=== PATIENT | female | born 1945 | race Caucasian/White ===

== ENCOUNTER → 2016-07-25 | Outpatient (CLI) | payer MEDICARE, BC ==
[~2016-07-25] MED LIST: AMBIEN 10MG10 MG PO; APIDRA SOLOS100 U/ML SC; APIDRAVL SC; ASPIRIN 32325 MG/TAB PO; ASPIRIN E.C. 8181 MG PO; CALCIUM + D 6001 TA1 PO; HYZAAR 25 MG-101 TAB PO; IMDUR 30MG30 MG/TAB PO; LASIX 80MG TABL80 MG PO; LEVEMIR FLEX100 U/ML SQ; LEVEMIR FLEXPEN SC; LOPRESSOR100 MG PO; MASON NATURAL1200 MG PO; MICRONASE5 MG PO; NITROSTAT0.3 MG; NORVASC 5MG5 MG/TAB PO; OMEGA-3 FISH1200 MG PO; PLAVIX 75MG TAB75 MG PO; PRAVACHOL 40MG40 MG PO
== END ==
LOC: MC.RAD 08:35
DX: Z12.31 Encounter for screening mammogram for malignant neoplasm of breast (principal)

== ENCOUNTER → 2017-08-20 | Outpatient (CLI) | payer MEDICARE, BC | LOC: MC.RAD 09:32 | DX: Z12.31 Encounter for screening mammogram for malignant neoplasm of breast (principal) ==

== ENCOUNTER → 2017-12-31 | Outpatient (CLI) | payer MEDICARE, BC ==
[2005-08-27 12:18] VITALS: BP 148/78
[~2017-12-31] VITALS: Ht 162.6 cm; Wt 126.6 kg
[~2017-12-31] MED LIST changes: +COZAAR100 MG PO; +IRON TABLETS325 MG PO; +LEVOXYL0.05 MG PO; +MASON NATURAL2000 IU PO; -NITROSTAT0.3 MG; +NITROSTAT0.3 MG SL; +PRAVACHOL80 MG PO; +TYLENOL 500MG500 MG PO; +VITAMIN B125000 MCG PO
[2017-12-31 07:41] VITALS: BP 182/95; PULSE 66
[2017-12-31 09:00] VITALS: BP 198/93; PULSE 58
[2017-12-31 09:15] VITALS: BP 180/83; PULSE 58
== END ==
LOC: COL.RAD 06:45
DX: M48.061 Spinal stenosis, lumbar region without neurogenic claudication (principal)
CPT/HCPCS: J3301

== ENCOUNTER → 2018-02-03 | Outpatient (CLI) | payer MEDICARE, BC ==
[2005-08-27 12:18] VITALS: BP 148/78
[~2018-02-03] VITALS: Ht 162.6 cm; Wt 123.0 kg
[2018-02-03 09:21] VITALS: BP 186/80; PULSE 62
[2018-02-03 10:20] VITALS: BP 193/83; PULSE 62
[2018-02-03 10:31] VITALS: BP 168/79; PULSE 92
== END ==
LOC: COL.RAD 01-16 13:00
DX: M48.061 Spinal stenosis, lumbar region without neurogenic claudication (principal)
CPT/HCPCS: J3301

== ENCOUNTER → 2018-09-26 | Outpatient (CLI) | payer MEDICARE, BC | LOC: MC.RAD 08:41 | DX: Z12.31 Encounter for screening mammogram for malignant neoplasm of breast (principal) ==

== ENCOUNTER 2019-12-04 14:09 | Inpatient (IN) | payer MEDICARE, BC ==
[~2019-12-04] VITALS: Ht 165.1 cm; Wt 127.4 kg
[2019-12-04] MEDS ORDERED: SYNTHROID0.075 MG/T PO (14:43)
[2019-12-04] MEDS ORDERED: NOVOLOG 100U100 U/M1 SQ (14:45)
[2019-12-04] MEDS ORDERED: BASAGLAR K100 UNIT/1 SQ (14:46)
[2019-12-04 15:21] LABS: BASO % 0.6 % (0.0-2.0); EOS # 0.1 (0.0-0.7); EOS % 0.7 % (0-4.0); GRAN # 5.6 (1.4-6.5); GRAN % 79.8 % (42.2-75.2); HEMOGLOBIN 10.7 g/dl (12.5-16.0); LYMPH # 0.7 (1.2-3.4); LYMPH % 10.2 % (20.0-51.0); MEAN CELL VOLUME 93 fl (80.0-100.0); MEAN CORPUSCULAR HEMOGLOBIN 31 pg (27.0-31.0); MEAN CORPUSCULAR HGB CONC 33 g/dl (33.0-37.0); MEAN PLATELET VOLUME 12.3 fl (7.4-10.4); MONO # 0.6 (0.1-0.6); MONO % 7.9 % (1.7-9.3); PLATELET COUNT 140 K/mm3 (130-400); REDCELL DISTRIBUTION WIDTH-CV 13.1 % (11.5-14.5)
[2019-12-04 15:40] LABS: HEMATOCRIT 32.7 % (37.0-47.0)
[2019-12-04 15:42] LABS: ALBUMIN 3.5 gm/dL (3.5-5.0); BILIRUBIN,TOTAL 0.9 mg/dL (0.0-1.0); CALCIUM 9.1 mg/dL (8.4-10.2); CREATININE, serum 2.77 (0.52-1.25); POTASSIUM 3.3 mmol/L (3.4-5.0); TOTAL PROTEIN 6.3 gm/dL (6.4-8.2)
[2019-12-04 15:46] LABS: COLLECTION METHOD IN
[2019-12-04 15:55] LABS: MUCOUS Present /lpf; PH 6 (5-8); SQUAMOUS EPITHELIAL 0-2 /hpf; URINE APPEARANCE Hazy; URINE BACTERIA Rare /hpf; URINE BILIRUBIN Negative (NEGATIVE); URINE BLOOD 1+ (NEGATIVE); URINE COLOR Yellow; URINE GLUCOSE 3+ (NEGATIVE); URINE KETONE Negative (NEGATIVE); URINE LEUKOCYTE ESTERASE Negative (NEGATIVE); URINE NITRATE Negative (NEGATIVE); URINE PROTEIN(semi-quant) 3+ (NEGATIVE); URINE RBC 0-2 /hpf; URINE UROBILINOGEN Negative (NEGATIVE)
[2019-12-04 15:55] LABS: INR 1.1 (0.8-3.0); PROTHROMBIN TIME 12.3 SECONDS (9.7-12.8)
[2019-12-04 15:56] LABS: TROPONIN-I 0.068 ng/mL (0.000-0.035)
--- NOTE | 2019-12-04 18:12 | NUR ---
pt pleasant, aox4 , admission completed, many alleriges to antibiotics. lab unable to draw 3hr troponin, pt denies pain or discomfort, reports unfortunate past history of nephew with this hospital. this is resulting in pt desiring to be transferred to [place] if any highly invasive procedures become necessary. assessment performed. water brought in, dinner tray ordered for pt.
[2019-12-04 18:22] VITALS: BP 198/76; PULSE 84; TEMP 98.4
[2019-12-04 18:29] VITALS: BP 175/88
--- NOTE | 2019-12-04 18:43 | NUR ---
CALLED DR DIAZ ABOUT INC BP, INSTRUCTED TO GIVE BOTH DOSES OF BP MEDS NOW NOT AT 2100
[2019-12-04 20:02] VITALS: BP 150/75; PULSE 73; TEMP 98.1
[2019-12-04 20:17] LABS: MAGNESIUM 1.9 mg/dL (1.6-2.3)
[2019-12-04 20:47] LABS: TROPONIN-I 0.125 ng/mL (0.000-0.035)
[2019-12-05 00:14] VITALS: BP 146/72; PULSE 59; TEMP 98
--- NOTE | 2019-12-05 00:49 | NUR ---
Pt assessment completed and charted, alert and oriented, O2 on NC 2 lit. Critical troponin level, informed the hospitalist. Meds provided as per MAY, tolerated well. Blood glucose was on higher range, insulin provided as per sliding scale. Settled on bed, call light is on reach, bed alarm is on. No further needs at this time.
[2019-12-05 03:56] VITALS: BP 134/55; PULSE 54; TEMP 97.5
--- NOTE | 2019-12-05 06:18 | NUR ---
Pt had an uneventful night, slept on and off through out the night. Morning meds provided as per MAY. No further needs at this time.
[2019-12-05 07:21] LABS: BASO % 0.3 % (0.0-2.0); EOS # 0.3 (0.0-0.7); EOS % 3.9 % (0-4.0); GRAN # 4.2 (1.4-6.5); GRAN % 66.2 % (42.2-75.2); LYMPH # 1.2 (1.2-3.4); MEAN CELL VOLUME 96 fl (80.0-100.0); MEAN CORPUSCULAR HGB CONC 33 g/dl (33.0-37.0); MEAN PLATELET VOLUME 12.3 fl (7.4-10.4); MONO # 0.6 (0.1-0.6); MONO % 10.1 % (1.7-9.3); PLATELET COUNT 125 K/mm3 (130-400); RED BLOOD COUNT 3.17 M/mm3 (4.10-5.30); REDCELL DISTRIBUTION WIDTH-CV 13.2 % (11.5-14.5)
[2019-12-05 07:30] LABS: CHOLESTEROL RISK RATIO 2.9; CREATININE, serum 2.87 (0.52-1.25); MAGNESIUM 1.9 mg/dL (1.6-2.3); POTASSIUM 3.3 mmol/L (3.4-5.0)
[2019-12-05 07:39] LABS: TROPONIN-I 0.331 ng/mL (0.000-0.035)
[2019-12-05 07:48] LABS: HEMATOCRIT 30.5 % (37.0-47.0); HEMOGLOBIN 9.9 g/dl (12.5-16.0); MEAN CORPUSCULAR HEMOGLOBIN 31 pg (27.0-31.0)
[2019-12-05 08:03] VITALS: BP 184/58; PULSE 62; TEMP 97.7
--- NOTE | 2019-12-05 09:22 | NUR ---
Pt assessment complete. Pt is sitting up in bed watching tv upon entry, she is A/O x4. Her breathing is even and unlabored on 2L O2 via NC. Pt denies SOB at this time, reports this oxygen has helped with this. Denies any pain this AM. BLE elevated on pillows. Ronnell ANDRADE. No needs at this time. Call light within reach.
[2019-12-05 11:46] VITALS: BP 120/29; BP 121/106; BP 174/58; PULSE 57; TEMP 97.9
[2019-12-05 13:21] LABS: POTASSIUM 3.6 mmol/L (3.4-5.0)
[2019-12-05 13:39] LABS: TROPONIN-I 0.243 ng/mL (0.000-0.035)
[2019-12-05 15:56] LABS: URINE PROTEIN:CREAT RATIO 24.16 (0.00-0.14)
[2019-12-05 16:54] VITALS: BP 193/76; PULSE 55
--- NOTE | 2019-12-05 17:57 | NUR ---
SW met with patient at her bedside. Patient currently resides in [facility] with her Stef [phone] as her care support and EMR. Patient also listed her daughter Muna [phone]. Patient reported that she needed alot of assistance with ADL's in the last two weeks, and that she utilizes about 5liters of oxygen connected to her Cpap machine. Patient reports she also uses a walker, and a shower bar. Patient reports that her PCP is Dr Morgan, and that she has anupcoming appointment December 18. patient had declined [facility] at this time, however indicated that the doctor had spoken to her about IPR services. This could not be confirmed with the hospitalist, however SW did speak with patients nurse who said it was a possiblity. SW did not submit a referral pending confirmation.
--- NOTE | 2019-12-05 18:14 | NUR ---
Pt had uneventful day. Laid in bed through most of it. Ronnell ANDRADE. POC discussed with patient who is aware of fluid restriction and upcoming tests. Continues on 2L O2 via NC for comfort. No needs at this time.
--- NOTE | 2019-12-05 19:27 | NUR ---
Received report from Rika. Seen patient in bed, eating her dinner. With INT on left forearm. With morton catheter draining clear, yellow urine. She denies pain. Call light within reach.
[2019-12-05 19:47] VITALS: BP 143/60; PULSE 56; TEMP 98.5
--- NOTE | 2019-12-05 21:30 | NUR ---
Patient reports headache with pain score of 7/10. Tylenol PRN given.
[2019-12-06] VITALS (8 sets, daily range): BP systolic 133–187; BP diastolic 51–89; PULSE 54–69; TEMP 97.5–98.7
--- NOTE | 2019-12-06 05:55 | NUR ---
Latest blood pressure is 153/73. Hydralazine PRN given.
[2019-12-06 06:31] LABS: URINE PROTEIN:CREAT RATIO 9.01 (0.00-0.14)
[2019-12-06 09:23] LABS: CALCIUM 8.9 mg/dL (8.4-10.2); CREATININE, serum 2.73 (0.52-1.25); POTASSIUM 3.8 mmol/L (3.4-5.0)
--- NOTE | 2019-12-06 10:00 | NUR ---
Pt has a student nurse caring for her today. Pt is A/O x4. Currently on 2L O2 via NC. Feels comfortable with this. Has some mild back pain, reports it has improved with sitting on the side of the bed. Lungs clear bilaterally. HR regular. No N/V. BLE 3+ with blisters. RUE 2+ edema. Legs elevated on pillows. Ronnell ANDRADE. POC discussed with patient who verbalizes understanding. No needs at this time.
[2019-12-06 10:30] LABS: BASO % 0.3 % (0.0-2.0); EOS # 0.1 (0.0-0.7); EOS % 0.8 % (0-4.0); GRAN # 7.3 (1.4-6.5); GRAN % 81.8 % (42.2-75.2); HEMOGLOBIN 10.6 g/dl (12.5-16.0); LYMPH # 0.7 (1.2-3.4); LYMPH % 7.9 % (20.0-51.0); MEAN CELL VOLUME 95 fl (80.0-100.0); MEAN CORPUSCULAR HEMOGLOBIN 30 pg (27.0-31.0); MEAN CORPUSCULAR HGB CONC 32 g/dl (33.0-37.0); MEAN PLATELET VOLUME 11.9 fl (7.4-10.4); MONO # 0.8 (0.1-0.6); MONO % 8.8 % (1.7-9.3); PLATELET COUNT 153 K/mm3 (130-400); RED BLOOD COUNT 3.53 M/mm3 (4.10-5.30); REDCELL DISTRIBUTION WIDTH-CV 13.5 % (11.5-14.5)
[2019-12-06 10:49] LABS: HEMATOCRIT 33.5 % (37.0-47.0)
--- NOTE | 2019-12-06 15:35 | NUR ---
SW contacted by nurse to follow up on vikas's request for patient to recieve acute services. SW met with patient to discuss plan, and patient stated that she was contacted by staff in regards to obtaining more services such as IPR. Patient stated that she did not need choices as she has already chosen IPR. DANNI contacted contract coordinator IPR manufacturers service representative Marbella, and provided information in regards to patient. IPR manufacturers service representative will review information for being referred to IPR. DANNI will continue to follow.
--- NOTE | 2019-12-06 18:59 | NUR ---
Pt had uneventful day. Pt not up out of bed except with PT. UOP decreased today. Pt very cognizant of fluid restriction as well as carb control and appropriate choices. No needs at this time.
--- NOTE | 2019-12-06 19:43 | NUR ---
Received report from Rika. Seen patient awake, in bed. She's in a bedpan right now trying to have a bowel movement. With morton catheter draining clear, yellow urine. With INT on right forearm. She is alert and oriented. Call light within reach.
[2019-12-07] VITALS (8 sets, daily range): BP systolic 137–177; BP diastolic 37–59; PULSE 55–68; TEMP 97.5–98.8
--- NOTE | 2019-12-07 05:44 | NUR ---
Patient states the Tylenol helped for her pain. Catheter care done. No other needs or complains aside from pain.
[2019-12-07 07:14] LABS: BASO % 0.4 % (0.0-2.0); EOS # 0.2 (0.0-0.7); EOS % 2.1 % (0-4.0); GRAN # 5.8 (1.4-6.5); GRAN % 70.9 % (42.2-75.2); LYMPH # 1.2 (1.2-3.4); MEAN CELL VOLUME 95 fl (80.0-100.0); MEAN CORPUSCULAR HGB CONC 32 g/dl (33.0-37.0); MEAN PLATELET VOLUME 12.5 fl (7.4-10.4); MONO # 0.9 (0.1-0.6); MONO % 11.1 % (1.7-9.3); PLATELET COUNT 137 K/mm3 (130-400); REDCELL DISTRIBUTION WIDTH-CV 13.2 % (11.5-14.5)
[2019-12-07 07:22] LABS: HEMATOCRIT 30.5 % (37.0-47.0); HEMOGLOBIN 9.8 g/dl (12.5-16.0); MEAN CORPUSCULAR HEMOGLOBIN 31 pg (27.0-31.0)
[2019-12-07 07:33] LABS: CALCIUM 8.9 mg/dL (8.4-10.2); CREATININE, serum 3.48 (0.52-1.25); POTASSIUM 3.5 mmol/L (3.4-5.0)
--- NOTE | 2019-12-07 08:44 | NUR ---
PT BP 146/40. PHYSICIAN NOTIFIED, ORDERED TO GIVE LASIX BUT HOLD OTHER BP MEDS.
--- NOTE | 2019-12-07 12:10 | NUR ---
Bisi, IPR Director, reports that they are unable to accept the patient. SW met with the patient to inform and to discuss other post-acute rehab options. The patient chose 1) [facility] 2) [facility]. SW contacted and faxed a referral to both facilities. SW awaiting their screens.
--- NOTE | 2019-12-07 13:15 | NUR ---
First visit from the hotel clerk. No needs right now.
--- NOTE | 2019-12-07 16:34 | NUR ---
Dilia, at [facility], reports that they are good to follow the patient and will need continued updates.
--- NOTE | 2019-12-07 17:20 | NUR ---
pt c/o low back pain and r knee pain that is tolerable without tylenol at this time. pt morton has leaked twice but this is most likely due to pt straining when needing to urinate. pt educated on letting the bladder relax and to let us know when pt feels pressure to possibly readjust tubing. pt readjusted in bed multiple times for pt comfort. BS in control with insulin. no other needs at this time.
[2019-12-07 19:46] LABS: IRON,SERUM 26 ug/dL (35-150)
[2019-12-07 19:55] LABS: TOTAL IRON BINDING CAPACITY 268 ug/dL (265-497)
--- NOTE | 2019-12-07 20:00 | NUR ---
Report received, assumed care for hourly shift manager. Assessment complete. VS stable. A&Ox3-drowsy. Denies pain/shortness of breath at rest/nausea. Reynaga cath with dark yellow urine. 20G INT to right FA flushes without difficulty. Plan of care discussed for this shift to include HS meds/repositioning/calling for questions/concerns. Verbalizes understanding. Call light in reach. Will monitor.
[2019-12-08] VITALS (7 sets, daily range): BP systolic 126–169; BP diastolic 36–89; PULSE 59–68; TEMP 97.9–98.4
--- NOTE | 2019-12-08 03:40 | NUR ---
Called with c/o a headache. States its a dull headache rated 4/10 on pain scale-tylenol given per dr order. Denies nausea. Has slept off and on this shift. CPAP on. Call light in reach. Will monitor.
[2019-12-08 05:39] LABS: BASO % 0.3 % (0.0-2.0); EOS # 0.2 (0.0-0.7); GRAN # 6.9 (1.4-6.5); GRAN % 72.8 % (42.2-75.2); LYMPH # 1.3 (1.2-3.4); LYMPH % 13.9 % (20.0-51.0); MEAN CELL VOLUME 95 fl (80.0-100.0); MEAN CORPUSCULAR HEMOGLOBIN 31 pg (27.0-31.0); MEAN CORPUSCULAR HGB CONC 32 g/dl (33.0-37.0); MEAN PLATELET VOLUME 12.1 fl (7.4-10.4); MONO % 10.6 % (1.7-9.3); PLATELET COUNT 137 K/mm3 (130-400); RED BLOOD COUNT 3.27 M/mm3 (4.10-5.30); REDCELL DISTRIBUTION WIDTH-CV 13.5 % (11.5-14.5)
[2019-12-08 05:52] LABS: CALCIUM 8.8 mg/dL (8.4-10.2); CREATININE, serum 3.54 (0.52-1.25); POTASSIUM 3.9 mmol/L (3.4-5.0)
--- NOTE | 2019-12-08 10:46 | NUR ---
Met with pt for CHF education. Pt states that she previously went over the CHF Binder with one of her nursing students who went over every page with her. We review signs and symptoms to watch for. Provided pt with the Heart Failure Zones. Discussed the importance of taking her meds and watching her diet and weight. Pt states that her daughter is going to buy her a new scale. Discussed her current activity level and encouraged her to increase activity gradually. Pt verbalized understanding of education. She denied any other questions or concerns at this time. Pt agreeable to have CM f/u with her after discharge.
--- NOTE | 2019-12-08 15:19 | NUR ---
DANNI contacted the patient's daughter, Muna (ph#[phone]), and , Stef, and provided them an update on referrals for post-acute rehab. [facility]. DANNI [facility] and [facility].
[2019-12-08 18:44] LABS: URINE PROTEIN:CREAT RATIO 9.09 (0.00-0.14)
--- NOTE | 2019-12-08 19:01 | NUR ---
RN attempted to take patient off O2, patient complained of SOB without oxygen. 1L of O2 reapplied. patient report breathing better. Daughter at bedside visiting. Patient resting in bed. Report given to Rui Granados.
--- NOTE | 2019-12-08 19:56 | NUR ---
Oxygen increased from 1L to 2L because patient continue to complain of SOB with 1L. Patient verbalize she felt better on 2L of 02. Report given to night nurseFahad.
--- NOTE | 2019-12-08 21:05 | NUR ---
Pt assessment completed and charted, alert, oriented, O2 nc 1 lit. Meds provided as per MAY, tolerated well. Placed a bedpan and cleaned and changed her. Helped her settled on bed, call light is on reach, bed alarm is on. No further needs at this time.
[2019-12-09 03:55] VITALS: BP 134/42; PULSE 62; TEMP 98.3
--- NOTE | 2019-12-09 05:49 | NUR ---
Pt had an uneventful night, slept through out the night. Morning meds provided as per MAY, tolerated well. No further needs at this time.
[2019-12-09 07:19] LABS: BASO # 0.1 (0.0-0.2); BASO % 0.6 % (0.0-2.0); EOS # 0.3 (0.0-0.7); GRAN # 5.9 (1.4-6.5); GRAN % 71.8 % (42.2-75.2); HEMOGLOBIN 10.1 g/dl (12.5-16.0); LYMPH % 12.6 % (20.0-51.0); MEAN CELL VOLUME 95 fl (80.0-100.0); MEAN CORPUSCULAR HEMOGLOBIN 31 pg (27.0-31.0); MEAN CORPUSCULAR HGB CONC 32 g/dl (33.0-37.0); MONO # 0.9 (0.1-0.6); MONO % 11.4 % (1.7-9.3); PLATELET COUNT 160 K/mm3 (130-400); RED BLOOD COUNT 3.29 M/mm3 (4.10-5.30); REDCELL DISTRIBUTION WIDTH-CV 13.2 % (11.5-14.5)
[2019-12-09 07:20] LABS: HEMATOCRIT 31.3 % (37.0-47.0)
[2019-12-09 07:42] VITALS: BP 144/42; PULSE 57; TEMP 97.9
[2019-12-09 07:43] LABS: CALCIUM 8.6 mg/dL (8.4-10.2); CREATININE, serum 3.73 (0.52-1.25); POTASSIUM 3.9 mmol/L (3.4-5.0)
[2019-12-09 11:31] VITALS: BP 142/44; PULSE 58; TEMP 97.7
[2019-12-09 15:36] VITALS: BP 155/52; PULSE 61; TEMP 98.2
--- NOTE | 2019-12-09 15:44 | NUR ---
SW contacted and faxed updates to [facility]
--- NOTE | 2019-12-09 17:40 | NUR ---
Patient resting in bed, alert, oriented. Tremor on right hand. denies any pain. complain of pressure on both arms. Insulin 5unit BID SQ was added to patient's med. 24hrs urine collection for total creatinine and protein was started at 1730. Reynaga catherer bag placed in ice for preservation. potassium at 3.9, GFR 12. 10mEQ was administered per potassium protocol. Muna, Daughter visiting at bedside.
[2019-12-09 20:31] VITALS: BP 129/42; PULSE 59; TEMP 98.6
--- NOTE | 2019-12-09 21:56 | NUR ---
Assessment complete. Pt sitting up in bed watching tv. Reports moderate headache, declines medication at this time. Generalized edema noted, 2+ to BLE and RUE, abdomen firm to touch. Hand academic department chair equal bilaterally, denies pain to swollen extremities. Reports shortness of air with movement and when talking for extended periods. Currently on 2 L O2 by nasal cannula. Reynaga intact and secured to pt's leg. Reddened area noted to coccyx. Multiple bruises over BUE. Red bumps over bilateral shins, pt reports this is baseline. Lung sounds clear all moore, respiratory rate and rhythm regular. INT to right forearm clean, dry, intact and flushes easily. Pt denies other needs at this time. Will continue to monitor.
[2019-12-10 00:47] VITALS: BP 134/43; PULSE 56; TEMP 98.1
[2019-12-10 04:17] VITALS: BP 116/37; PULSE 52; TEMP 97.7
--- NOTE | 2019-12-10 06:52 | NUR ---
Pt rested in bed throughout night, sleeping for short periods at a time. PRN tylenol administered once for headache. Reynaga output remains low. 24 hour urine collection still in progress.
[2019-12-10 07:10] LABS: BASO # 0.1 (0.0-0.2); BASO % 0.6 % (0.0-2.0); EOS # 0.5 (0.0-0.7); EOS % 6.1 % (0-4.0); GRAN # 4.9 (1.4-6.5); LYMPH # 1.5 (1.2-3.4); LYMPH % 18.8 % (20.0-51.0); MEAN CELL VOLUME 96 fl (80.0-100.0); MEAN CORPUSCULAR HGB CONC 31 g/dl (33.0-37.0); MONO # 0.9 (0.1-0.6); MONO % 11.7 % (1.7-9.3); PLATELET COUNT 169 K/mm3 (130-400); RED BLOOD COUNT 3.22 M/mm3 (4.10-5.30); REDCELL DISTRIBUTION WIDTH-CV 13.3 % (11.5-14.5)
[2019-12-10 07:14] LABS: HEMATOCRIT 30.9 % (37.0-47.0); HEMOGLOBIN 9.7 g/dl (12.5-16.0); MEAN CORPUSCULAR HEMOGLOBIN 30 pg (27.0-31.0)
[2019-12-10 07:25] VITALS: BP 141/50; PULSE 56; TEMP 97.8
[2019-12-10 07:26] LABS: ALBUMIN 2.9 gm/dL (3.5-5.0); CALCIUM 8.7 mg/dL (8.4-10.2); CREATININE, serum 4.07 (0.52-1.25); PHOSPHOROUS 4.8 mg/dL (2.5-4.5); POTASSIUM 4.3 mmol/L (3.4-5.0)
--- NOTE | 2019-12-10 09:20 | NUR ---
Parish, at [facility], reports that they have declined the patient.
--- NOTE | 2019-12-10 10:00 | NUR ---
Assessment completed, alert/oriented, vital signs stable, denies pain or discomfort this morning lungs CTA/ no reps.difficulty at rest, heart regular/ slightly bradycardic in the 50's, extensive pitting edema to BLE/BUE and trunk, morton patent with low UOP/ 24hr urine collection will be complete at 1730, she had BM this morning, fsbs in control, she ate breakfast and denies othe needs at [facility]
[2019-12-10 12:55] VITALS: BP 132/48; PULSE 53; TEMP 97.7
--- NOTE | 2019-12-10 16:16 | NUR ---
DANNI faxed updates to Dilia at [facility].
[2019-12-10 16:44] VITALS: BP 142/46; PULSE 53; TEMP 97.7
--- NOTE | 2019-12-10 18:48 | NUR ---
Received report from Shane RODRIGUEZ. Pt resting in bed. Denies needs at this time.
[2019-12-10 19:38] LABS: URINE CREATININE CLEARANCE 5.5 mL/min (88-128); URINE TOTAL VOLUME 425 mL
[2019-12-10 20:55] VITALS: BP 129/52; PULSE 55; TEMP 97.5
--- NOTE | 2019-12-10 21:04 | NUR ---
Assessment complete. Pt sitting up in bed watching tv. Generalized edema still present, 2+ to BLE and RUE, abdomen firm to touch but appears to be improving. Lung sounds clear, breathing regular and unlabored, currently on 2 L O2 by nasal cannula. Multiple large bruises to arms bilaterally. Reddened area with bumps noted to BLE. Right forearm INT clean, dry, intact, flushes easily. Denies pain or other needs at this time. Call light in reach.
[2019-12-11] VITALS (11 sets, daily range): BP systolic 104–145; BP diastolic 31–57; PULSE 48–60; TEMP 97.2–97.9
--- NOTE | 2019-12-11 00:30 | NUR ---
This RN entered pt room and noticed wet area on the floor. Reynaga collection contained noted to be unclamped. Floor was cleaned and collection container clamped.
--- NOTE | 2019-12-11 06:43 | NUR ---
Pt reports nausea and stomach pain upon awakening this morning. Currently on bed [place] as she felt that having a BM may relieve her discomfort. Output of 275 from Reynaga during shift. Barrier ointment applied under bilateral breasts. Will check in on pt when done on bedpan.
[2019-12-11 07:11] LABS: BASO % 0.6 % (0.0-2.0); EOS # 0.4 (0.0-0.7); EOS % 5.7 % (0-4.0); GRAN # 4.5 (1.4-6.5); GRAN % 62.5 % (42.2-75.2); LYMPH # 1.3 (1.2-3.4); MEAN CELL VOLUME 96 fl (80.0-100.0); MEAN CORPUSCULAR HGB CONC 31 g/dl (33.0-37.0); MEAN PLATELET VOLUME 12.3 fl (7.4-10.4); MONO # 0.9 (0.1-0.6); MONO % 12.4 % (1.7-9.3); PLATELET COUNT 163 K/mm3 (130-400); RED BLOOD COUNT 3.05 M/mm3 (4.10-5.30); REDCELL DISTRIBUTION WIDTH-CV 13.4 % (11.5-14.5)
[2019-12-11 07:17] LABS: HEMATOCRIT 29.3 % (37.0-47.0); HEMOGLOBIN 9.2 g/dl (12.5-16.0); MEAN CORPUSCULAR HEMOGLOBIN 30 pg (27.0-31.0)
[2019-12-11 07:30] LABS: CALCIUM 8.6 mg/dL (8.4-10.2); CREATININE, serum 3.96 (0.52-1.25); POTASSIUM 4.3 mmol/L (3.4-5.0)
--- NOTE | 2019-12-11 10:54 | NUR ---
DANNI attended clinical rounds. The patient is to tentatively be here through the weekend. DANNI then followed up with the patient and her daughter, Muna. The patient states that she is not ready to d/c yet, but knows she will need rehab when she leaves here. The patient and Muna are agreeable to going to [facility] upon discharge. DANNI updated Dilia at [facility]. SW to fax updates to [facility].
--- NOTE | 2019-12-11 13:55 | NUR ---
Primary nurse was assisted with [phone] patient care by [employer] student Kristi Anderson and [employer] instructor Ivis Geller RN-.
--- NOTE | 2019-12-11 19:19 | NUR ---
patient morton catheter was deflated and reflated with new 10cc fluid because patient complain of mild discomfort that feel like "a ball that wants to come out. RN held Heparin before surgery. Patient still in surgery at the time of 1700 8units insulin dose. Patient in surgery for dialysis catheter and dialysis fistula placement. Daughter visited at bedside. Report given to nick NurseToya.
--- NOTE | 2019-12-11 20:07 | NUR ---
Pt arrived back to medical unit room 319 from OR via bed. Pt sleeping upon arrival. Arouses to voice and nods head yes and no. Hooked tp dynamap for post iop checks. Tele monitor placed. Fistula placed to LFA, glue dressing, no complications. HD cath to rt chest with dressing in place. pt satting 89-90% of 2LNC, increased to 3L and RT at bedside placed pt on cpap, Satting 93-95%. Dtr Muna at bedside. Requested to spend the night. Received approval from Shannan. Pt started to c/o pain to neck to HD cath site, PRN tylenol administered. Pt refused to take other PM meds. BG 102, insulin held per BG results and as requested by pt. Sips of water and yogurt provided to pt. Dtr assisting. Will monitor pt.
--- NOTE | 2019-12-11 21:43 | NUR ---
PT CAME BACK FROM SURGERY AND STILL SLEEPY. PT WAS PLACED ON A NASAL CANNULA AT 2LPM WITH SAT AT 89% INCREASED LPM TO 3 PT MANJEET WELL. PT WAS WANTING TO GO ON CPAP PLACED PT ON CPAP WITH THE 3 LPM BLEED IN. SATURATIONS INCREASED TO 95%. PT WAS RESTING AND MANJEET WELL WITH NO DISTRESS NOTED AT THIS TIME
[2019-12-12] VITALS (7 sets, daily range): BP systolic 115–143; BP diastolic 41–64; PULSE 48–72; TEMP 97.7–98.3
--- NOTE | 2019-12-12 06:49 | NUR ---
Pt made no complaints during the night. Dtr remained at bedside. call light within reach.
--- NOTE | 2019-12-12 07:18 | NUR ---
Report given to MICHAEL Gongora.
--- NOTE | 2019-12-12 08:19 | NUR ---
Assessment complete. Patient laying in bed on entry, awake and alert. States that she feels better than she did yesterday after surgery. Reports some tenderness in her lower extremities but this is not uncommon for her. Dialysis catheter site dressing is CD&I with no visible drainage, site above insertion is also CD&I, undressed with no drainage. Fistula site is undressed but CD&I as well. IV site is CD&I. Patient did not complain of pain at this time. Daughter still at the bedside. No other needs were expressed. Call light is in reach. Will continue to monitor.
[2019-12-12 12:16] LABS: CALCIUM 8.7 mg/dL (8.4-10.2); MEAN CELL VOLUME 98 fl (80.0-100.0); MEAN CORPUSCULAR HGB CONC 32 g/dl (33.0-37.0); MEAN PLATELET VOLUME 11.8 fl (7.4-10.4); PLATELET COUNT 182 K/mm3 (130-400); POTASSIUM 4.5 mmol/L (3.4-5.0); RED BLOOD COUNT 3.06 M/mm3 (4.10-5.30); REDCELL DISTRIBUTION WIDTH-CV 13.4 % (11.5-14.5)
[2019-12-12 12:19] LABS: HEMATOCRIT 29.9 % (37.0-47.0); HEMOGLOBIN 9.5 g/dl (12.5-16.0); MEAN CORPUSCULAR HEMOGLOBIN 31 pg (27.0-31.0)
[2019-12-12 13:09] LABS: BAND 3 % (0-10); EOSINOPHIL 2 % (0-4); LYMPHOCYTE 13 % (20.0-51.0); NEUTROPHILS 74 % (42.0-75.2); PLATELET ESTIMATE NORMAL (NORMAL)
--- NOTE | 2019-12-12 16:05 | NUR ---
Patient was having a hard time passing her BM and this making her very uncomfortable through the day. Patient requested to get on the BSC but with patients weight, weakness, and surgery sites. With help pt was slid up in bed and pt bed was put into chair position, this was very helpful and pt was able to have a very large BM. Patient was given a bed bath and a new gown was provided. Patient stated the position her chair was in was very comfortable so she was left in this position. Patient has had a good day other than the abdominal discomfort that has now resolved. Surgery sites remain CD&I. No complaints of pain. Call light is in reach.
--- NOTE | 2019-12-12 22:05 | NUR ---
Pt assessment completed and charted, alert, ortiented, NC 3 lit O2. Meds provided as per MAR, as well as PRN pain meds on pt request. Pt is settled on bed, call light is on reach, bed alarm is on. No further needs at this time.
[2019-12-13] VITALS: BP 132/55; PULSE 55; TEMP 97.4
[2019-12-13 03:50] VITALS: BP 130/44; PULSE 51; TEMP 97.5
--- NOTE | 2019-12-13 05:16 | NUR ---
Pt had on and off sleep through out the night. Morning meds provided as per MAY. No further needs at this time.
[2019-12-13 07:28] LABS: BASO % 0.5 % (0.0-2.0); EOS # 0.3 (0.0-0.7); EOS % 4.3 % (0-4.0); GRAN # 5.2 (1.4-6.5); LYMPH # 1.2 (1.2-3.4); LYMPH % 15.3 % (20.0-51.0); MEAN CELL VOLUME 97 fl (80.0-100.0); MEAN CORPUSCULAR HGB CONC 32 g/dl (33.0-37.0); MEAN PLATELET VOLUME 11.8 fl (7.4-10.4); MONO % 12.8 % (1.7-9.3); PLATELET COUNT 197 K/mm3 (130-400); RED BLOOD COUNT 3.02 M/mm3 (4.10-5.30); REDCELL DISTRIBUTION WIDTH-CV 13.4 % (11.5-14.5)
[2019-12-13 07:35] LABS: HEMATOCRIT 29.2 % (37.0-47.0); HEMOGLOBIN 9.4 g/dl (12.5-16.0); MEAN CORPUSCULAR HEMOGLOBIN 31 pg (27.0-31.0)
[2019-12-13 07:39] LABS: ALBUMIN 2.9 gm/dL (3.5-5.0); CALCIUM 8.9 mg/dL (8.4-10.2); CREATININE, serum 4.11 (0.52-1.25); PHOSPHOROUS 5.5 mg/dL (2.5-4.5); POTASSIUM 4.5 mmol/L (3.4-5.0)
[2019-12-13 10:28] VITALS: BP 145/61; PULSE 53; TEMP 97.7
--- NOTE | 2019-12-13 10:54 | NUR ---
Assessment complete. Patient just arrived back from dialysis, states she did well for her first cycle. No complaints of pain or discomfort. IV was removed from right FA, swelling and bruising had increased and skin around iv (although flushing well) was begining to weep. Per Dr. Aguilar IV was removed as she is not on IV fluids or meds and labs have been being drawn from dialysis catheter anyways. Patient was relieveed to have it out. No other needs were expressed at this time. Call light is in reach.
[2019-12-13 15:34] VITALS: BP 152/46; PULSE 57; TEMP 98.1
--- NOTE | 2019-12-13 16:49 | NUR ---
Patient has had an uneventful day after arriving back from dialysis. Daughter is now at the bedside. Pt spoke directly with dr. adam about her plan and goals of care with dialysis. Reynaga catheter remains in place, sediment noticible in tubing, informed dr. adam of this. Patient reported some pain in her neck and on her bottom, PRN ES tylenol was provided for this. Patient recieved a full bed change, new gown and was wiped down again today. right FA IV site has been weeping minimally through the day, site is very bruised, but patient states it is much better now that the IV si removed. No other needs were expressed at this time. Call light is in reach.
[2019-12-13 19:26] VITALS: BP 122/35; PULSE 57; TEMP 98.2
[2019-12-13 22:33] LABS: COLLECTION METHOD IN
--- NOTE | 2019-12-13 22:38 | NUR ---
Pt assessment completed and charted, alert, oriented, 02 NC 2 lit. Pt seems tired and lethergic tonight. Meds provided as per MAY, tolerated well. Pt rt hand still has minimal drainage from IV site that was disconnected earlier on the day shift. Elevated her rt hand over pillow. Pt is settled on her bed, position changed. call light is on reach. Bed alaram is on, no further needs at this time.
[2019-12-13 22:51] LABS: MUCOUS Present /lpf; PH 5 (5-8); URINE APPEARANCE Turbid; URINE BACTERIA Occasional /hpf; URINE BILIRUBIN Negative (NEGATIVE); URINE BLOOD 3+ (NEGATIVE); URINE COLOR Yellow; URINE GLUCOSE 2+ (NEGATIVE); URINE KETONE Negative (NEGATIVE); URINE LEUKOCYTE ESTERASE 2+ (NEGATIVE); URINE NITRATE Negative (NEGATIVE); URINE PROTEIN(semi-quant) 2+ (NEGATIVE); URINE RBC >50 /hpf; URINE UROBILINOGEN Negative (NEGATIVE); URINE WBC >50 /hpf
[2019-12-13 23:08] VITALS: BP 128/41; PULSE 56; TEMP 98.2
--- NOTE | 2019-12-13 23:45 | NUR ---
PRN pain meds and Miralex provided as per pt request. Pt is on CPAP with 2 lit O2. Pt has no further needs.
[2019-12-14 03:34] VITALS: BP 114/30; PULSE 52; TEMP 97.9
--- NOTE | 2019-12-14 05:47 | NUR ---
Pt had an uneventful night, slept through out the night. No further needs at this time.
--- NOTE | 2019-12-14 07:00 | NUR ---
Pt resting in bed at this time. Has no complaints or concerns. Assessment completed. Pt will go to dialysis after breakfast. No further concerns at this time. Will continue to monitor. Call light within reach.
[2019-12-14 07:41] VITALS: BP 140/39; PULSE 54; TEMP 98.2
[2019-12-14 09:32] LABS: MEAN CELL VOLUME 99 fl (80.0-100.0); MEAN CORPUSCULAR HGB CONC 31 g/dl (33.0-37.0); MEAN PLATELET VOLUME 11.9 fl (7.4-10.4); PLATELET COUNT 178 K/mm3 (130-400); RED BLOOD COUNT 3.11 M/mm3 (4.10-5.30); REDCELL DISTRIBUTION WIDTH-CV 13.7 % (11.5-14.5)
[2019-12-14 09:39] LABS: HEMATOCRIT 30.7 % (37.0-47.0); HEMOGLOBIN 9.6 g/dl (12.5-16.0); MEAN CORPUSCULAR HEMOGLOBIN 31 pg (27.0-31.0)
[2019-12-14 09:54] LABS: ALBUMIN 3.1 gm/dL (3.5-5.0); CREATININE, serum 3.82 (0.52-1.25); PHOSPHOROUS 5.2 mg/dL (2.5-4.5); POTASSIUM 4.7 mmol/L (3.4-5.0)
[2019-12-14 10:21] LABS: BAND 1 % (0-10); EOSINOPHIL 6 % (0-4); HYPOCHROMIA 1+; LYMPHOCYTE 26 % (20.0-51.0); NEUTROPHILS 64 % (42.0-75.2)
[2019-12-14 10:22] LABS: PLATELET ESTIMATE NORMAL (NORMAL)
[2019-12-14 10:23] LABS: OVALOCYTES 1+
[2019-12-14 13:44] LABS: HEPATITIS C VIRUS ANTIBODY Negative (Negative)
[2019-12-14 13:49] LABS: HEPATITIS B SURFACE ANTIGEN Negative (Negative)
[2019-12-14 14:43] LABS: HEPATITIS B SURFACE ANTIBODY <2.0 (())
--- NOTE | 2019-12-14 15:42 | NUR ---
Pt down at MRI. Off telemetry at this time. Contacted Critical Care to inform of being off telemetry. Pt
[2019-12-14 16:15] VITALS: BP 130/40; PULSE 59; TEMP 97.9
--- NOTE | 2019-12-14 16:29 | NUR ---
The patient decided to pursue dialysis. Dialysis was intiated on 12/12. DANNI faxed updates to Dilia at [facility].
[2019-12-14 19:37] VITALS: BP 137/51; PULSE 56; TEMP 98.1
--- NOTE | 2019-12-14 22:00 | NUR ---
Patient assessed at this time. Alert and oriented x 4, and able to make needs known. Denies having pain and discomfort at this time. Tunneled HD catheter to right IJ. Redness noted to top of area, and states that it gets irritated and hurts at times. Dressing to area is CDI. AV fistula to left wrist. Surgical site open to air. Tenderness when touched, but denies at rest. Positive bruit and thrill. Denies SOB and dypsnea. LS CTA in upper lobes, diminished in lower lobes. Respirations even and unlabored. HR-bradycardia. Telemetry in place: sinus yodit. Capillary refill less than 3 seconds. Non-tenting skin turgor. BSAx4. Abdomen soft and non-tender. Indwelling morton catheter patent, and draining cloudy yellow urine with sediment present via dependent drainage. Patient has open/cracked area to coccyx. BUE and abdomen with bruising in various stages of healing. 2+ edema LUE, 3+ BLE. Repositioned in bed. Voices no questions, needs, or concerns at this time. Resting in bed with call light within reach.
[2019-12-15] VITALS: BP 148/43; PULSE 57; TEMP 98.4
--- NOTE | 2019-12-15 05:05 | NUR ---
Patient has been resting in bed. Used bedpan once during the night, but unable to have a BM. Indwelling morton catheter continues to drain cloudy yellow urine with sediment present. Voices no questions, needs, or concerns at this time. Resting in bed with call light within reach.
[2019-12-15 05:06] VITALS: BP 137/42; PULSE 54; TEMP 97.9
--- NOTE | 2019-12-15 06:30 | NUR ---
Pt is resting in bed, no needs or wants at this time. Assessment completed, pt call light within reach. No further concerns.
[2019-12-15 07:27] VITALS: BP 127/64; PULSE 52; TEMP 97.9
--- NOTE | 2019-12-15 09:17 | NUR ---
Assessment completed. Pt has no complaints. Dialysis will be today around 1600.
[2019-12-15 11:29] VITALS: BP 141/93; PULSE 55; TEMP 98.1
--- NOTE | 2019-12-15 15:16 | NUR ---
Bisi, [facility] Director, notified SW that she is reconsidering the patient now and has spoken to the patient about this. The patient would like to go to [facility]. DANNI faxed updates to [facility].
[2019-12-15 16:04] VITALS: BP 120/52; PULSE 61; TEMP 98.1
[2019-12-15 17:26] LABS: MEAN CELL VOLUME 98 fl (80.0-100.0); MEAN CORPUSCULAR HGB CONC 32 g/dl (33.0-37.0); PLATELET COUNT 155 K/mm3 (130-400); RED BLOOD COUNT 2.98 M/mm3 (4.10-5.30); REDCELL DISTRIBUTION WIDTH-CV 13.9 % (11.5-14.5)
[2019-12-15 17:32] LABS: HEMATOCRIT 29.2 % (37.0-47.0); HEMOGLOBIN 9.3 g/dl (12.5-16.0); MEAN CORPUSCULAR HEMOGLOBIN 31 pg (27.0-31.0)
[2019-12-15 18:19] LABS: CREATININE, serum 3.86 (0.52-1.25); PHOSPHOROUS 5.4 mg/dL (2.5-4.5); POTASSIUM 4.5 mmol/L (3.4-5.0)
[2019-12-15 18:37] LABS: BAND 1 % (0-10); EOSINOPHIL 2 % (0-4); LYMPHOCYTE 16 % (20.0-51.0); METAMYELOCYTE 1 % (0-0); NEUTROPHILS 69 % (42.0-75.2)
[2019-12-15 18:39] LABS: HYPOCHROMIA 2+; OVALOCYTES 1+; PLATELET ESTIMATE NORMAL (NORMAL)
--- NOTE | 2019-12-15 18:56 | NUR ---
PT AT DIALYSIS, REPORTED TO MICHAEL MAHER
[2019-12-15 20:46] VITALS: BP 117/42; PULSE 58; TEMP 98.8
--- NOTE | 2019-12-15 21:10 | NUR ---
Patient assessed at this time. Alert and oriented x 4, and able to make needs known. Denies having pain and discomfort at this time. No IV access. HD catheter to right chest with bruising around area. AV fistula to left wrist with positive bruit and thrill. Edges well approximated. Denies SOB and dyspnea. LS CTA in upper lobes, diminished in lower. Respirations even and unlabored. HR yodit. Telemetry in place: sinus yodit. Capillary refill less than 3 seconds. Non-tenting skin tugor. BSAx4. Abdomen soft and non-tender. Indwelling morton catheter patent, draining cloudy yellow urine via dependent drainage. Edema to BUE and BLE. Bruising to BUE/BLE/chest/abdomen in various stages of healing. Voices no questions, needs, or concern at this time. Resting in bed with call light within reach.
[2019-12-16] VITALS (7 sets, daily range): BP systolic 134–156; BP diastolic 41–112; PULSE 53–64; TEMP 98–99
--- NOTE | 2019-12-16 05:15 | NUR ---
Patient has been resting in bed with call light within reach. Did compalin of a headache around midnigh, and received PRN APAP as requested. Stated that it was effective. Voices no further questions, needs, or concerns at this time.
[2019-12-16 08:17] LABS: PATHOLOGY DIFF REVIEW OK
--- NOTE | 2019-12-16 11:51 | NUR ---
Assessment completed, alert/oriented, vital signs stable, denies pain or discomfort, heart RRR/distal pulses are palpable, still has significant edema to BUE/BLE/Trunk, lungs CTA/ no reps.difficulty noted, morton patent with clear yellow urine, No dialysis today, I have given her Retacrit injection, she has gotten up with PT and is now sitting in the chair, denies other needs
--- NOTE | 2019-12-16 16:28 | NUR ---
The hospitalist informed SW that the patient may be able to d/c tomorrow, 12/16. Bisi, [facility] Director, reports that she is able to accept the patient and may have a bed available tomorrow or Saturday. DANNI met with the patient to review d/c plan. The patient reports that she would prefer to go to [facility]. DANNI notified and faxed updates to Dilia at [facility].
[2019-12-16 18:01] LABS: MEAN CELL VOLUME 99 fl (80.0-100.0); MEAN CORPUSCULAR HGB CONC 31 g/dl (33.0-37.0); MEAN PLATELET VOLUME 12.3 fl (7.4-10.4); PLATELET COUNT 122 K/mm3 (130-400); RED BLOOD COUNT 3.03 M/mm3 (4.10-5.30); REDCELL DISTRIBUTION WIDTH-CV 14.1 % (11.5-14.5)
[2019-12-16 18:13] LABS: CREATININE, serum 3.2 (0.52-1.25); PHOSPHOROUS 4.4 mg/dL (2.5-4.5); POTASSIUM 4.7 mmol/L (3.4-5.0)
[2019-12-16 18:31] LABS: HEMATOCRIT 29.9 % (37.0-47.0); HEMOGLOBIN 9.3 g/dl (12.5-16.0); MEAN CORPUSCULAR HEMOGLOBIN 31 pg (27.0-31.0)
[2019-12-16 18:37] LABS: BAND 1 % (0-10); EOSINOPHIL 2 % (0-4); LYMPHOCYTE 12 % (20.0-51.0); NEUTROPHILS 80 % (42.0-75.2)
[2019-12-16 18:38] LABS: PLATELET ESTIMATE DECREASED (NORMAL)
[2019-12-16 18:39] LABS: HYPOCHROMIA 2+
--- NOTE | 2019-12-16 21:07 | NUR ---
Pt assessment completed and documented. Pt resting in bed watching television. Pt alert and oriented x4. Denies pain. Telemetry discontinued per orders from MILTON Balderrama. Pt denies any other needs/concerns at this time. Call light within reach. Will continue to monitor
[2019-12-17 03:44] VITALS: BP 137/42; PULSE 53; TEMP 98.3
--- NOTE | 2019-12-17 06:22 | NUR ---
Pt stated she did not sleep well overnight. No reports of pain. Pt denies any needs/ concerns at this time. Call light within reach.
[2019-12-17 07:53] VITALS: BP 127/64; PULSE 55; TEMP 98.4
--- NOTE | 2019-12-17 08:59 | NUR ---
Assessment completed, alert/oriented, vital signs stable, denies pain or discomfort, reported she got decent night of sleep, she is getting ready to get up to the chair with PT, edema is unchanged/ patient doing well with her fluid restrictions and is staying under her limit, heart RRR, distal pulses are palpable, plans for transfer to [facility] today
[2019-12-17 11:39] VITALS: BP 109/64; PULSE 53; TEMP 97.4
[2019-12-17 16:02] VITALS: BP 139/56; PULSE 57; TEMP 97.6
[2019-12-17 20:14] VITALS: BP 156/49; PULSE 57; TEMP 98.2
--- NOTE | 2019-12-17 21:00 | NUR ---
Pt assessment completed and docuemented. Pt resting in bed at this time talking to her on the phone. Pt alert and oriented x4. Complaints of a headache however states she does not need anything for pain at this time. Fistula to left forearm CDI with audible bruit and palpable thrill. Dialysis cath to right chest CDI. Pt denies any needs/ concerns at this time. Call light within reach. Will continue to monior
[2019-12-17 23:45] VITALS: BP 152/55; BP 173/48; PULSE 60; TEMP 97.7
[2019-12-18 03:14] VITALS: BP 159/44; PULSE 56; TEMP 98.2
--- NOTE | 2019-12-18 05:04 | NUR ---
Pt has been awake intermittently thoughout the night. Complaints of headache overnight however denied the need for pain medication. Fistula to left forearm CDI. Dialysis cath to right chest CDI. Pt denies any other needs at this time. Call light within reach.
--- NOTE | 2019-12-18 06:30 | NUR ---
Report rcvd from MICHAEL Granados. Pt is resting in bed. All VSS. Pt ready to transfer to [facility] today. Student Rika RODRIGUEZ is assisting today and will be checking in on the patient until transfer is completed. No further concerns. Will await discharge instructions.
--- NOTE | 2019-12-18 07:29 | NUR ---
Report given to MICHAEL Lynn
[2019-12-18 07:48] VITALS: BP 126/52; PULSE 57; TEMP 98
[2019-12-18 08:32] VITALS: BP 151/53; PULSE 56; TEMP 97.6
[2019-12-18] MEDS ORDERED: ZEBETA 5MG5 MG PO (08:58)
[2019-12-18] MEDS ORDERED: IMDUR 30MG30 MG/TAB PO (08:58)
[2019-12-18 08:59] VITALS: BP 151/53; PULSE 56; TEMP 97.6
[2019-12-18] MEDS ORDERED: LEVEMIR FLEX100 U/ML SQ (09:00)
[2019-12-18] MEDS ORDERED: NOVOLOG FLEX100 U/ML SQ (09:01)
[2019-12-18] MEDS ORDERED: MELATIN 3 MG-11 TAB PO (09:01)
--- NOTE | 2019-12-18 09:02 | NUR ---
The patient is to discharge today, 12/17, to [facility]. SW contacted and updated the patient's daughter, Muna. She is agreeable to the plan. No additional needs at this time.
--- NOTE | 2019-12-18 09:06 | NUR ---
Pt is being discharged to [facility] at this time.
--- NOTE | 2019-12-18 11:52 | NUR ---
Primary nurse was assisted with [phone] [facility] care by [employer] student Kylie Barclay and [employer] instructor Ivis Geller RN-.
--- NOTE | 2019-12-21 14:41 | NUR ---
Attempted CHF f/u call. No answer but left message requesting return call if pt had any CHF questions. Pt was discharged to [facility] on 12/17.
== END 2019-12-18 10:21 | DRG 264 ==
LOC: COL.ER 14:09 → MEDICAL 16:20 → SURG 12-14 16:28 → MEDICAL 12-16 23:00
PROVIDERS: Emergency Medicine; Internal Medicine Nephrology; Nurse Practitioner; Physician Assistant; Student in an Organized Health Care Education/Training Program; Surgery; ADMIT Hospitalist
PROC: 02HV33Z Insertion of Infusion Device into Superior Vena Cava, Percutaneous Approach (ICD-10-PCS; 2019-12-11)
PROC: 031C09F Bypass Left Radial Artery to Lower Arm Vein with Autologous Venous Tissue, Open Approach (ICD-10-PCS; principal; 2019-12-11 17:00)
PROC: 0JH60XZ Insertion of Tunneled Vascular Access Device into Chest Subcutaneous Tissue and Fascia, Open Approach (ICD-10-PCS; 2019-12-11 17:00)
PROC: 5A1D70Z Performance of Urinary Filtration, Intermittent, Less than 6 Hours Per Day (ICD-10-PCS; 2019-12-13)
DX: I13.0 Hypertensive heart and chronic kidney disease with heart failure and stage 1 through stage 4 chronic kidney disease, or unspecified chronic kidney disease (principal); I50.33 Acute on chronic diastolic (congestive) heart failure; I21.A1 Myocardial infarction type 2; J96.21 Acute and chronic respiratory failure with hypoxia; N17.9 Acute kidney failure, unspecified; Z68.43 Body mass index [BMI] 50.0-59.9, adult; N39.0 Urinary tract infection, site not specified; N18.4 Chronic kidney disease, stage 4 (severe); E46 Unspecified protein-calorie malnutrition; E78.5 Hyperlipidemia, unspecified; I16.0 Hypertensive urgency; N18.30 Chronic kidney disease, stage 3 unspecified; E11.22 Type 2 diabetes mellitus with diabetic chronic kidney disease; E11.65 Type 2 diabetes mellitus with hyperglycemia; D63.1 Anemia in chronic kidney disease; I80.8 Phlebitis and thrombophlebitis of other sites; E03.9 Hypothyroidism, unspecified; G47.33 Obstructive sleep apnea (adult) (pediatric); E66.01 Morbid (severe) obesity due to excess calories; I08.3 Combined rheumatic disorders of mitral, aortic and tricuspid valves; I25.10 Atherosclerotic heart disease of native coronary artery without angina pectoris; E87.6 Hypokalemia; G47.00 Insomnia, unspecified; D69.6 Thrombocytopenia, unspecified; M17.0 Bilateral primary osteoarthritis of knee; G20 Parkinson's disease; R26.81 Unsteadiness on feet; I89.0 Lymphedema, not elsewhere classified; B95.2 Enterococcus as the cause of diseases classified elsewhere; Z79.4 Long term (current) use of insulin; Z79.82 Long term (current) use of aspirin; Z99.81 Dependence on supplemental oxygen; Z95.2 Presence of prosthetic heart valve; Z95.5 Presence of coronary angioplasty implant and graft; Z88.0 Allergy status to penicillin; Z88.1 Allergy status to other antibiotic agents; Z88.6 Allergy status to analgesic agent; Z90.710 Acquired absence of both cervix and uterus; Z88.5 Allergy status to narcotic agent
CPT/HCPCS: 99223-AI; 99231-AI; 99232-AI; 99233-AI; 99239; A4314; J1644; J1815; J1940; J1956; J2704; J2916; J7030; Q5105

== ENCOUNTER 2019-12-18 09:30 | Inpatient (IN) | payer MEDICARE, BC ==
[~2019-12-18] VITALS: Ht 165.1 cm; Wt 117.1 kg
[~2019-12-18 09:30] MED LIST changes: +BASAGLAR K100 UNIT/1 SQ; +MELATIN 3 MG-11 TAB PO; +NOVOLOG 100U100 U/M1 SQ; +NOVOLOG FLEX100 U/ML SQ; +SYNTHROID0.075 MG/T PO; +ZEBETA 5MG5 MG PO
[2019-12-18 14:38] LABS: MEAN CELL VOLUME 99 fl (80.0-100.0); MEAN CORPUSCULAR HGB CONC 31 g/dl (33.0-37.0); PLATELET COUNT 165 K/mm3 (130-400); RED BLOOD COUNT 3.12 M/mm3 (4.10-5.30); REDCELL DISTRIBUTION WIDTH-CV 14.6 % (11.5-14.5)
[2019-12-18 14:51] LABS: HEMATOCRIT 30.8 % (37.0-47.0); HEMOGLOBIN 9.6 g/dl (12.5-16.0); MEAN CORPUSCULAR HEMOGLOBIN 31 pg (27.0-31.0)
[2019-12-18 14:53] LABS: ALBUMIN 3.3 gm/dL (3.5-5.0); CALCIUM 9.4 mg/dL (8.4-10.2); CREATININE, serum 3.56 (0.52-1.25); PHOSPHOROUS 5.1 mg/dL (2.5-4.5); POTASSIUM 4.4 mmol/L (3.4-5.0)
[2019-12-18 17:09] LABS: BAND 1 % (0-10); LYMPHOCYTE 15 % (20.0-51.0); MYELOCYTE 1 % (0-0); NEUTROPHILS 74 % (42.0-75.2); PLATELET ESTIMATE NORMAL (NORMAL)
--- NOTE | 2019-12-18 19:30 | NUR ---
RECEIVED CHANGE OF SHIFT REPORT FROM MEDICAL UNIT DAY SHIFT NURSE VIA PHONE DUE TO PATIENT TRANSFERED FROM MEDICAL UNIT EARLIER IN DAY. BED ALARM ON.
--- NOTE | 2019-12-18 19:42 | NUR ---
PATIENT WAS TRANSFERRED BY MEDICAL NURSE VIA BED TO ROOM 334 AT 0930 THIS AM. PATIENT ORIENTED TO THE ROOM AND UNIT. THERAPY WORKED WITH PATIENT AND THEN PATIENT WENT TO DIALYSIS. PATIENT HAS VOIDED TWICE TODAY USING BEDSIDE COMMODE WITH 1-2 PIVOT TRANSFER. PATIENT REPORTED SOME PAIN IN RIGHT LEG DURING DIALYSIS WHICH REPOSITIONING RELIEVED. PATIENT RESTING IN BED AT BEDSIDE SHIFT REPORT.
--- NOTE | 2019-12-18 20:00 | NUR ---
GENERALIZED WEAKNESS, OBSERVED SHORTNESS OF BREATH WITH EXERTION. UP TO BSC FOR ELIMINATION DUE TO ACTIVITY INTOLERANCE/SHORTNESS OF BREATH. DENIES CHEST PAIN. CONTINUES ON OXYGEN PER NASAL CANNULA. BED ALARM ON.
[2019-12-19 04:59] VITALS: BP 133/55; PULSE 59; TEMP 98.3
[2019-12-19 06:36] VITALS: BP 133/55; PULSE 53; TEMP 98.3
--- NOTE | 2019-12-19 08:35 | NUR ---
CHANGE OF SHIFT REPORT GIVEN TO DAY SHIFT NURSEBUD. BED ALARM ON.
--- NOTE | 2019-12-19 13:22 | NUR ---
Chaplain terry and offered support with patient.
[2019-12-19 18:44] VITALS: BP 136/54; PULSE 62; TEMP 98.2
--- NOTE | 2019-12-19 18:46 | NUR ---
RECEIVED CHANGE OF SHIFT REPORT FROM DAY SHIFT NURSE. BED ALARM ON.
[2019-12-20 04:52] VITALS: BP 129/64; PULSE 59; TEMP 98.8
--- NOTE | 2019-12-20 07:36 | NUR ---
CHANGE OF SHIFT REPORT GIVEN TO DAY SHIFT NURSEBUD. BED ALARM ON.
[2019-12-20 18:00] VITALS: BP 141/62; PULSE 88; TEMP 98.7
--- NOTE | 2019-12-20 19:07 | NUR ---
RECEIVED CHANGE OF SHIFT REPORT FROM DAY SHIFT NURSE. BED ALARM ON.
--- NOTE | 2019-12-20 19:15 | NUR ---
PATIENT HAD AN UNEVENTFUL DAY. PATIENT DENIED PAIN THROUGHOUT THE SHIFT. LEFT FOREARM AV FISTULA INCISION JOVITA WITH EDGES WELL APPROXIMATED. GOOD BRUIT AND THRILL. DRAINAGE PRESENT ON RIGH CHEST HD CATH DRESSING. DIFFUSE ECCHYMOSIS OVER BODY NOTED. PATIENT HAS BEEN VERY TIRED TODAY AND SLEPT OFF AND ON. REPORT GIVEN TO MICHAEL ABDUL. PATIENT CURRENTLY RESTING IN BED WITH BED ALARM ON.
--- NOTE | 2019-12-20 20:43 | NUR ---
PATIENT WITH WEAKNESS TO BLE WITH PIVOT TRANSFERS FROM BED TO BSC AND BACK TO BED. OBSERVED SHORTNESS OF BREATH WITH ACTIVITY/EXERTION. DENIES CHEST PAIN/SHORTNESS OF BREATH. DENIES NUMBNESS/TINGLING TO EXTREMITIES AT THIS TIME. BED ALARM ON WHILE IN BED.
[2019-12-21 04:47] VITALS: BP 106/81; PULSE 55; TEMP 98.4
--- NOTE | 2019-12-21 07:15 | NUR ---
PATIENT SLEEPING IN BED AT BEDSIDE SHIFT REPORT. PATIENT WILL RECEIEVE DIALYSIS TODAY. PATIENT BLOOD SUGAR OF 133 THIS AM.
--- NOTE | 2019-12-21 07:17 | NUR ---
CHANGE OF SHIFT REPORT GIVEN TO DAY SHIFT NURSEDORIS. BED ALARM ON.
[2019-12-21 13:40] LABS: MEAN CELL VOLUME 101 fl (80.0-100.0); MEAN CORPUSCULAR HGB CONC 31 g/dl (33.0-37.0); MEAN PLATELET VOLUME 11.9 fl (7.4-10.4); PLATELET COUNT 158 K/mm3 (130-400); RED BLOOD COUNT 3.04 M/mm3 (4.10-5.30); REDCELL DISTRIBUTION WIDTH-CV 15.2 % (11.5-14.5)
[2019-12-21 13:42] LABS: HEMATOCRIT 30.7 % (37.0-47.0); HEMOGLOBIN 9.6 g/dl (12.5-16.0); MEAN CORPUSCULAR HEMOGLOBIN 32 pg (27.0-31.0)
[2019-12-21 14:00] LABS: ALBUMIN 3.3 gm/dL (3.5-5.0); CALCIUM 9.6 mg/dL (8.4-10.2); CREATININE, serum 3.6 (0.52-1.25); PHOSPHOROUS 5.3 mg/dL (2.5-4.5); POTASSIUM 4.4 mmol/L (3.4-5.0)
[2019-12-21 14:18] LABS: BAND 5 % (0-10); BASOPHIL 1 % (0-2); EOSINOPHIL 6 % (0-4); LYMPHOCYTE 16 % (20.0-51.0); METAMYELOCYTE 1 % (0-0); NEUTROPHILS 65 % (42.0-75.2); PLATELET ESTIMATE NORMAL (NORMAL)
[2019-12-21 14:19] LABS: HYPOCHROMIA 1+
--- NOTE | 2019-12-21 15:05 | NUR ---
SW met with the patient to complete intake, as the patient is new to [facility]. The patient lives in [place] with her , Stef (ph#[phone]). She states that her daughter, Muna (ph#[phone]), lives in [place]. She reports needing assistance with bathing, prior to hospitalization and that she has a walker, noctural oxygen, and a CPAP. She could not recall her oxygen supplier. She states that her daughter, Muna, helps her bathe. The patient's PCP is Dr. Alphonse Morgan and she receives her medications at [facility]. She reports no difficulties obtaining her meds. The patient does not have a DPOA-HC in EMR, but she states that she has one completed and that her is her DPOA-HC. SW to continue to follow.
--- NOTE | 2019-12-21 15:36 | NUR ---
Admission QIM scores were reviewed by the team. Code of 2 chosen for sit to lying was determined by team discussion to be the most usual performance for this patient during the assessment period. Code of 1 for chair/bed to chair transfers was determined by team discussion to be the most usual performance for this patient during the assessment period.--Bisi Noel, PD
[2019-12-21 17:38] VITALS: BP 149/50; PULSE 65; TEMP 98.5
--- NOTE | 2019-12-21 17:44 | NUR ---
PATIENT DENIES PAIN TODAY. ON 1.5 LITER VIA NC CONTINUOUS DENIES SOB. PATIENT GETTING STRONGER WITH THERAPY, ABLE TO TRANSFER X1 ASSIST ON AND OFF OF COMMODE EVEN AFTER DIALYSIS. PATIENT REPORTS DISCOMFORT IN DIALYSIS CHAIR, WILL TAKE PRN TYLENOL BEFORE GOING FROM NOW ON. PATIENT STATES SHE WANTS PRN TYLENOL THIS EVENING FOR BED. PATIENT RECEIEVED 4 UNITS INSULIN FOR LUNCH AND INR THE REST OF THE DAY.
--- NOTE | 2019-12-21 20:00 | NUR ---
Assessment complete at this time. Patient is alert and oriented, lung sounds clear and heart sounds regular rate with a murmur. Lower extremity edema with 2+ pitting is present; Lower extremities are tight, slightly red and tender, and bubbly. Patient complains of pain in left ankle and right foot but denies need for pain medication. Patient transfers, with assistance, to [facility] with walker and gaitbelt and voids. Bedtime snack provided and call light within reach. Will continue to monitor.
[2019-12-22 04:55] VITALS: BP 152/36; PULSE 62; TEMP 98
--- NOTE | 2019-12-22 06:09 | NUR ---
Patient has transferred to BSC three times during the night, voiding each time. She has also passed gas but has not had a bowel movement. She has complained of tolerable pain in her ankles but denies need for pain meds. Oxygen sats have remained 95-100% on 2 liters O2 throughout the night. No new concerns.
[2019-12-22 17:14] VITALS: BP 168/56; PULSE 67; TEMP 98.2
--- NOTE | 2019-12-22 19:25 | NUR ---
Patient attended all therapies today and tolerated well. This nurse cleansed patient's carmen area and she was very yeasty smelling. Area was cleaned and patted dry. Will see if she can get an order for Diflucan. Some slight redness under pannus area and will see if we can get an order for Desenex. Patient continues on fluid restrictions of 1500 ml daily.
--- NOTE | 2019-12-22 20:00 | NUR ---
Assessment complete at this time. Patient transfers to BS with assistance. She complains of pain in her ankles and requests Tylenol ES. Desenex order obtained and powder is applied to patient's folds; carmen care provided. Call light within reach.
[2019-12-23 05:27] VITALS: BP 136/52; PULSE 59; TEMP 98.2
[2019-12-23 13:14] LABS: BASO # 0.1 (0.0-0.2); BASO % 0.8 % (0.0-2.0); EOS # 0.3 (0.0-0.7); EOS % 2.8 % (0-4.0); GRAN # 6.5 (1.4-6.5); GRAN % 68.1 % (42.2-75.2); HEMOGLOBIN 10.2 g/dl (12.5-16.0); LYMPH # 1.5 (1.2-3.4); LYMPH % 15.9 % (20.0-51.0); MEAN CELL VOLUME 100 fl (80.0-100.0); MEAN CORPUSCULAR HEMOGLOBIN 31 pg (27.0-31.0); MEAN CORPUSCULAR HGB CONC 31 g/dl (33.0-37.0); MEAN PLATELET VOLUME 11.8 fl (7.4-10.4); MONO # 1.1 (0.1-0.6); MONO % 11.2 % (1.7-9.3); PLATELET COUNT 186 K/mm3 (130-400); RED BLOOD COUNT 3.29 M/mm3 (4.10-5.30); REDCELL DISTRIBUTION WIDTH-CV 15.7 % (11.5-14.5)
[2019-12-23 13:19] LABS: HEMATOCRIT 32.9 % (37.0-47.0)
[2019-12-23 13:27] LABS: ALBUMIN 3.8 gm/dL (3.5-5.0); CREATININE, serum 3.43 (0.52-1.25); POTASSIUM 4.5 mmol/L (3.4-5.0)
--- NOTE | 2019-12-23 16:19 | NUR ---
Book Editor met with patient to review and provide copy of team conference notes. SW advised that discharge date has not been set at this time and the team will re-evaluate in a week. Patient is in agreement and states she is not ready to return home yet. SW to continue to follow.
[2019-12-23 17:28] VITALS: BP 107/78; PULSE 56; TEMP 98.1
--- NOTE | 2019-12-23 19:00 | NUR ---
RECEIVED CHANGE OF SHIFT REPORT FROM DAY SHIFT NURSE. CHAIR ALARM ON WHILE UP IN W/C.
--- NOTE | 2019-12-23 19:45 | NUR ---
Patient attended all her therapies this morning. She then went to dialysis at 12:30 PM. Patient continues to have bilateral lower leg swelling and does elevate legs during the day and at HS. Patient had a visitor this afternoon prior to dialysis. Patient tolerated meals well today, but did report that she did not get very much for supper tonight. She ordered some grapes for a night snack and they were received. Patient had one dose of diflucan for vaginal yeast growth. Patient continues to have some strong odor with urine and night nurse will discuss with Hospitalist if patient should have a UA/UC completed. Reported off to night nurse.
--- NOTE | 2019-12-23 20:00 | NUR ---
REQUIRES ASST X1 GETTING UP TO BSC, SOME SHORTNESS OF BREATH WITH EXERTION. CONTINUES ON OXYGEN PER NASAL CANNULA. DENIES CHEST PAIN/SHORTNESS OF BREATH AT THIS TIME AT REST. DENIES NUMBNESS/TINGLING TO EXTREMITIES AT THIS TIME. FLUID RESTRICTION OF 1500ML. BED ALARM ON. REQUESTED AND GIVEN APPLESAUCE FOR HS SNACK.
[2019-12-24 05:11] VITALS: BP 150/79; PULSE 65; TEMP 98.3
--- NOTE | 2019-12-24 07:32 | NUR ---
CHANGE OF SHIFT REPORT GIVEN TO DAY SHIFT NURSEDORIS. BED ALARM ON.
--- NOTE | 2019-12-24 10:24 | NUR ---
PATIENT RESTING IN BED AT BEDSIDE SHIFT REPORT PATIENT DENIED PAIN AT THIS TIME. REFUSED PRN TYLENOL BEFORE THERAPY. DOING WELL TRANSFERRING AND WALKING FURTHER.
[2019-12-24 16:20] VITALS: BP 147/52; PULSE 60; TEMP 97.8
--- NOTE | 2019-12-24 18:03 | NUR ---
PATIENT REPORTED SOME PAIN THIS SHIFT BUT REFUSED ANY MEDICATION DID TALK ABOUT HEAT THERAPY. SHE IS OPEN TO THIS IF SHE NEEDS IT LATER. PT WALKED 10 FEET TO THE BATHROOM. PT DRANK MORE FLUIDS TODAY AND IS GETTING STRONGER WITH AMBULATION AND SIT TO STAND.
--- NOTE | 2019-12-24 21:00 | NUR ---
PT RESTING IN BED. A&O X3. PLEASANT AND COOPERATIVE. 02 AT 1.5L NC. NO RESP DISTRESS. RT CHEST DIALYSIS CATHETER DRSG CDI. LT AV FISTULA STRONG PULSE BRUIT. SCD'S APPLIED ANGELINA LE. CALL LIGHT IN REACH. BED ALARM SET.
[2019-12-25 05:43] VITALS: BP 146/51; PULSE 66; TEMP 98.7
--- NOTE | 2019-12-25 13:30 | NUR ---
Patient attended all therapies this morning, ate all her lunch this afternoon and is now at dialysis. Patient given prn tylenol prior to going to dialysis. Patient reported that she didn't sleep well last night. Patient denied any questions.
[2019-12-25 13:33] LABS: BASO # 0.1 (0.0-0.2); BASO % 0.7 % (0.0-2.0); EOS # 0.2 (0.0-0.7); EOS % 2.7 % (0-4.0); GRAN # 4.9 (1.4-6.5); GRAN % 64.9 % (42.2-75.2); LYMPH # 1.4 (1.2-3.4); LYMPH % 19.1 % (20.0-51.0); MEAN CELL VOLUME 101 fl (80.0-100.0); MEAN CORPUSCULAR HGB CONC 31 g/dl (33.0-37.0); MEAN PLATELET VOLUME 12.1 fl (7.4-10.4); MONO # 0.9 (0.1-0.6); MONO % 11.7 % (1.7-9.3); PLATELET COUNT 141 K/mm3 (130-400); RED BLOOD COUNT 3.16 M/mm3 (4.10-5.30); REDCELL DISTRIBUTION WIDTH-CV 16.2 % (11.5-14.5)
[2019-12-25 13:34] LABS: HEMOGLOBIN 9.9 g/dl (12.5-16.0); MEAN CORPUSCULAR HEMOGLOBIN 31 pg (27.0-31.0)
[2019-12-25 14:29] LABS: ALBUMIN 3.2 gm/dL (3.5-5.0); CALCIUM 9.1 mg/dL (8.4-10.2); CREATININE, serum 2.08 (0.52-1.25); PHOSPHOROUS 2.8 mg/dL (2.5-4.5); POTASSIUM 3.8 mmol/L (3.4-5.0)
[2019-12-25 17:08] VITALS: BP 125/94; PULSE 59; TEMP 98
[2019-12-26 03:50] VITALS: BP 130/57; PULSE 73; TEMP 98.6
--- NOTE | 2019-12-26 09:07 | NUR ---
ASSISTED PT TO BSC THEN BACK TO BED, ATE BREAKFAST. PT DENIES NEEDS. PT HAS GENERALIZED WEAKNESS AND NEEDED ASSIST TO GET OUT OF BED.
[2019-12-26 17:21] VITALS: BP 153/48; PULSE 65; TEMP 98.8
--- NOTE | 2019-12-26 17:21 | NUR ---
PT UP TO WC FOR MOST OF PM, ASSISTED TO BR AND BACK TO WC. AMBULATED WITH SLOW GAIT.
--- NOTE | 2019-12-26 20:30 | NUR ---
PT SITTING IN CHAIR WATCHING TV. DENIES PAIN. O2 AT 1.5L/NC. NO RESP. DISTRESS. NO NEEDS AT THIS TIME.
[2019-12-27 04:42] VITALS: BP 146/56; PULSE 70; TEMP 97.9
--- NOTE | 2019-12-27 05:19 | NUR ---
PT UP TWICE THROUGH THE NIGHT TO USE THE COMMODE. GOOD TORSTEN CARE GIVEN AFTER EACH TIME. UP WITH 1:1 ASSIST AND USE OF WALKER AND GAIT BELT. WALKED OUT INTO HALLWAY AND THEN NEEEDED TO SIT DOWN AND BE WHEELED BACK TO BED. NO BM THIS SHIFT. CALL LIGHT WITHIN REACH AND BED ALARM ACTIVATED. BED IN LOW POSITION. NO OTHER NEEDS VOICED.
--- NOTE | 2019-12-27 08:00 | NUR ---
Patient sitting up in bed eatting breakfast. Not really hungry and not happy with getting "cold" oatmeal and an maltese muffin. A&Ox4. Denies pain and discomfort. States that she didnt get much sleep and was up off and on. VSS. Dialysis catheter sit RU chest CDI. Fistula LF wrist, CDI. Patient was independet with breakfast. Wants to get DLY WT when she gets up to her chair. Nurse instructed patient to shift weight while in bed and in the chair. No further needs expressed from the patient. Call light within reach
--- NOTE | 2019-12-27 17:14 | NUR ---
Patient had an uneventful day. Spent the day in the wheelchair. A&Ox4. Denies pain and discomfort. Only complaints was that it was cold. Blankets provided as requested. Patient stnadby assist with walker and gait belt to the bathroom and tolerated well. No further needs expressed from the patient. Call light within reach
[2019-12-27 18:01] VITALS: BP 152/56; PULSE 69; TEMP 97.9
--- NOTE | 2019-12-27 21:15 | NUR ---
PT UP IN W/C WATCHING TV. VOICES NO C/O PAIN. BILAT LE WITH ELEPHANT LOOKING SKIN FROM BELOW THE KNEE. PULSES PRESENT BILAT. C/O SOME SLIGHT NUMBNESS TO LEFT THUMB BUT SHE STATES THAT FEELING IS SLOWLY COMING BACK. CALL LIGHT IN REACH. BED ALARM ON.
--- NOTE | 2019-12-28 00:24 | NUR ---
PT C/O FEELING COLD. WARM BLANKETS APPLIED. CALL LIGHT IN REACH. BED ALARM ON. NEEDS MET.
[2019-12-28 04:36] VITALS: BP 128/83; PULSE 84; TEMP 97.9
--- NOTE | 2019-12-28 08:08 | NUR ---
PT UP IN WHEEL CHAIR FOR BREAKFAST. AM MEDS GIVEN ORDERED. PT DENIES PAIN, N/V,. SCHEDULED FOR DIALYSIS LATER TODAY. THERAPY IN AM.
[2019-12-28 13:22] LABS: BASO % 0.5 % (0.0-2.0); EOS # 0.2 (0.0-0.7); GRAN # 3.9 (1.4-6.5); GRAN % 68.7 % (42.2-75.2); LYMPH # 0.9 (1.2-3.4); LYMPH % 15.9 % (20.0-51.0); MEAN CELL VOLUME 101 fl (80.0-100.0); MEAN CORPUSCULAR HGB CONC 31 g/dl (33.0-37.0); MEAN PLATELET VOLUME 11.8 fl (7.4-10.4); MONO # 0.6 (0.1-0.6); MONO % 11.2 % (1.7-9.3); PLATELET COUNT 121 K/mm3 (130-400); RED BLOOD COUNT 3.14 M/mm3 (4.10-5.30)
[2019-12-28 13:25] LABS: HEMATOCRIT 31.6 % (37.0-47.0); HEMOGLOBIN 9.9 g/dl (12.5-16.0); MEAN CORPUSCULAR HEMOGLOBIN 32 pg (27.0-31.0)
[2019-12-28 13:29] LABS: ALBUMIN 3.4 gm/dL (3.5-5.0); CALCIUM 9.8 mg/dL (8.4-10.2); CREATININE, serum 3.9 (0.52-1.25); POTASSIUM 4.3 mmol/L (3.4-5.0)
--- NOTE | 2019-12-28 16:07 | NUR ---
Front Attendant contacted patient's , Stef to check in and he advised that patient's daughter, Gertrudis is the best point of contact for discharge planning needs. SW contacted Gertrudis to check in and explain role in discharge planning. Gertrudis inquired about DME needs and SW advised that would be reviewed in team meeting on Saturday. SW will continue to follow.
--- NOTE | 2019-12-28 16:44 | NUR ---
PT FINISHED DIALYSIS AND RETURNED TO ROOM. RONA RODRIGUEZ REPORTING 6LBS REMOVED FROM PT. PT TOLERATED WELL.
[2019-12-28 17:33] VITALS: BP 147/93; PULSE 76; TEMP 97.9
--- NOTE | 2019-12-28 18:44 | NUR ---
RECEIVED CHANGE OF SHIFT REPORT FROM DAY SHIFT NURSE. BED ALARM ON.
--- NOTE | 2019-12-28 19:01 | NUR ---
PATIENT UP IN CHAIR, DENIES ANY NEEDS AT THIS TIME. REPORTS AMBULATING TO BATHROOM DURING DAY, REQUESTING BSC USE DURING NIGHT DUE TO STRESS INCONTINENCE. CHAIR ALARM ON WHILE UP IN CHAIR AT THIS TIME.
[2019-12-29 06:08] VITALS: BP 144/39; PULSE 81; TEMP 98.3
--- NOTE | 2019-12-29 07:15 | NUR ---
GAVE CHANGE OF SHIFT REPORT TO DAY SHIFT NURSEOSCAR. BED ALARM ON, WHILE PATIENT IS IN BED DURING REPORT.
--- NOTE | 2019-12-29 15:34 | NUR ---
Call placed to Dr. Hassan's office regarding patient having numbness to her left hand and now moved to above her fistula sight on her left arm. Awaiting a return call.
[2019-12-29 16:22] VITALS: BP 140/79; PULSE 72; TEMP 98.1
--- NOTE | 2019-12-29 18:45 | NUR ---
RECEIVED CHANGE OF SHIFT REPORT FROM DAY SHIFT NURSE. UP IN CHAIR, CHAIR ALARM ON.
--- NOTE | 2019-12-29 18:50 | NUR ---
Patient attended all therapies today. Tolerated diet well. Denied pain this shift. Currently resting in wheelchair, call light in reach and alarm is set. She had a visitor this afternoon.
--- NOTE | 2019-12-29 20:00 | NUR ---
REPORTS NUMBNESS TO AREA ABOVE AV FISTULA SIGHT, REPORTS WAS SEEN BY DR SHIRLEY REGARDING C/O NUMBNESS TO LEFT LOWER FOREARM/WRIST/THUMB SIDE THAT HAS NOT INCREASED, AREA MARKED INDICATING LEVEL OF NUMBNESS. PATIENT UP IN CHAIR, CHAIR ALARM ON WHEN IN CHAIR.
[2019-12-30 05:01] VITALS: BP 140/46; PULSE 84; TEMP 98.4
--- NOTE | 2019-12-30 07:27 | NUR ---
CHANGE OF SHIFT REPORT GIVEN TO DAY SHIFT NURSEOSCAR. BED ALARM ON WHILE IN BED DURING REPORT.
--- NOTE | 2019-12-30 13:20 | NUR ---
Patient went to dialysis at 12:30 pm.
[2019-12-30 13:48] LABS: BASO % 0.6 % (0.0-2.0); EOS # 0.2 (0.0-0.7); EOS % 2.9 % (0-4.0); GRAN # 3.5 (1.4-6.5); GRAN % 66.4 % (42.2-75.2); HEMOGLOBIN 10.2 g/dl (12.5-16.0); LYMPH # 0.9 (1.2-3.4); LYMPH % 17.2 % (20.0-51.0); MEAN CELL VOLUME 102 fl (80.0-100.0); MEAN CORPUSCULAR HEMOGLOBIN 32 pg (27.0-31.0); MEAN CORPUSCULAR HGB CONC 31 g/dl (33.0-37.0); MEAN PLATELET VOLUME 12.3 fl (7.4-10.4); MONO # 0.7 (0.1-0.6); MONO % 12.5 % (1.7-9.3); PLATELET COUNT 116 K/mm3 (130-400); REDCELL DISTRIBUTION WIDTH-CV 17.1 % (11.5-14.5)
[2019-12-30 13:55] LABS: HEMATOCRIT 32.6 % (37.0-47.0)
[2019-12-30 13:59] LABS: ALBUMIN 3.5 gm/dL (3.5-5.0); CALCIUM 9.9 mg/dL (8.4-10.2); CREATININE, serum 3.73 (0.52-1.25); PHOSPHOROUS 4.5 mg/dL (2.5-4.5); POTASSIUM 4.5 mmol/L (3.4-5.0)
--- NOTE | 2019-12-30 14:13 | NUR ---
The patient was in dialysis. DANNI contacted the patient's daughter, Muna, to review the IPR Team Conference Note. DANNI informed her of the patient's progress and the team's tentative discharge date for Saturday, 12/31, with home health PT/OT and the recommendation of a 3-in-1 commode. Muna verbalized understanding and was in agreement to the plan. A patient/family meeting was scheduled for tomorrow, 12/30, at 1130. DANNI notified IPR Director. DANNI then met with the patient and reviewed the IPR Team Conference and the team's above recommendation. The patient reports that she does not feel ready and comfortable to d/c on Saturday. She states that she has 4-5 steps into her home and that she still needs to work on this. During the discussion, MILTON Pisano with Dr. Tariq entered the room. Aliya inquiried about transportation to dialysis and if the patient is able to transfer into a vehicle. The patient reports that she still needs to work on car transfers as well and that her and daughter would be able to take her to dialysis. DANNI updated IPR Director. The patient's discharge date has now been set to Saturday, 01/04. The patient was updated on the new d/c date. DANNI contacted and informed the patient's daughter, Muna, of the new d/c date. They were both agreeable to the new date. DANNI provided the patient with Medicare.[employer] list of home health agencies that serve [place]. The patient would like to look over the list after dialysis and requested that SW place the list in her room. DANNI placed the list in her room.
--- NOTE | 2019-12-30 16:37 | NUR ---
Patient returned from dialysis. She is currently resting in wheelchair, drinking her apple juice with miralax due to a hard stool this morning. Call light is in reach, slip proof socks on and denied any pain at this time.
[2019-12-30 17:35] VITALS: BP 169/56; PULSE 83; TEMP 98.9
--- NOTE | 2019-12-30 19:22 | NUR ---
Patient had a large dark bowel movement this evening.
--- NOTE | 2019-12-30 20:30 | NUR ---
PT UP TO RECLINER AWAKE AND ORIENTATED. DENIES ANY NEEDS. CALL LIGHT WITHIN REACH. WATCHES TV. DAUGHTER IN ROOM.
--- NOTE | 2019-12-30 20:50 | NUR ---
PT AMBULATED TO BR, PASSES FLATUS. BACK TO SIT IN W/C TO WATCH TV. ACCU CHECK 214. NOVOLOG 6 UNITS GIVEN ALONG WITH HER SCHEDULED LEVEMER 45 UNITS. INCISION TO LEFT WRIST FOR FISTULA WELL APPROXIMATED. OPEN TO AIR. BRUIT PRESENT. DIALYSIS CATH TO UPPER RIGHT CHEST.
[2019-12-31 06:00] VITALS: BP 151/96; PULSE 86; TEMP 98.6
--- NOTE | 2019-12-31 08:02 | NUR ---
PT DRESSED FOR PT. ASSIST BACK TO BED. AMBULATED TO THE BR WITH 1 ASSIST AND WALKER. BLOOD SUGAR THIS AM 143. CALL LIGHT WITHIN REACH. NEEDS MET.
--- NOTE | 2019-12-31 09:07 | NUR ---
PATIENT IN BED, DRESSED FOR THERAPY. PATIENT REPORTED SOB THIS AM AND ASKED FOR OXYGEN TO BE PUT ON. PRN 1.5 L VIA NC. PATIENT REPORTED SOME CHEST PAIN, HEART RATE SOMEWHAT ELEVATED, PATIENT STATES IT MAY BE ANXIETY WITH DISCHARGE DATE COMING UP AND PATIENT UNABLE TO DO STAIRS YET.
--- NOTE | 2019-12-31 11:57 | NUR ---
DANNI attended the family meeting with the patient, her , and daughter. Also present was IPR Director, PT, and OT. IPR Director started by explaining the purpose of the meeting. PT/OT then discussed the patient's progress and how a discharge date has been set for next Saturday, 01/04, with home health PT/OT. The patient and her family were agreeable to the discharge date. The patient and her family expressed their concerns with the patient getting up stairs and tranferring into a car. The patient has 4-5 steps to get into her house. Therapy plans to work on these two things with the patient. The patient states that she had home health in the past and really liked the PT they had there. Her name was Mary Anne Wilks. Our PT recognized the name and Mary Anne works at [facility]. The patient and her daughter recognized the agency. The team answered all of patient and family's questions. DANNI then contacted Dionna at [facility]. Dionna states that Mary Anne does work there, but that they have transitioned to palliative services and would not be able to provide the services the patient needs. DANNI updated the patient and her family. The patient and her family plan to look over the Medicare.gov list again to pick a different agency.
[2019-12-31 16:21] VITALS: PULSE 79; TEMP 98.3
[2019-12-31 17:34] VITALS: BP 140/62
--- NOTE | 2019-12-31 19:30 | NUR ---
PATIENT DENIED PAIN TODAY, HELPED TO THE BATHROOM ONCE FOR URINATION THIS SHIFT. PATIENT DRINKING LITTLE FLUIDS, CONTINUE TO ENCOURAGE THESE.
[2020-01-01 05:56] VITALS: BP 140/79; PULSE 81; TEMP 98.6
[2020-01-01 13:29] LABS: BASO % 0.7 % (0.0-2.0); EOS # 0.2 (0.0-0.7); GRAN % 66.9 % (42.2-75.2); HEMOGLOBIN 10.5 g/dl (12.5-16.0); LYMPH # 0.9 (1.2-3.4); LYMPH % 15.7 % (20.0-51.0); MEAN CELL VOLUME 101 fl (80.0-100.0); MEAN CORPUSCULAR HEMOGLOBIN 32 pg (27.0-31.0); MEAN CORPUSCULAR HGB CONC 32 g/dl (33.0-37.0); MONO # 0.8 (0.1-0.6); PLATELET COUNT 126 K/mm3 (130-400); RED BLOOD COUNT 3.28 M/mm3 (4.10-5.30); REDCELL DISTRIBUTION WIDTH-CV 16.5 % (11.5-14.5)
[2020-01-01 13:30] LABS: HEMATOCRIT 33.1 % (37.0-47.0)
[2020-01-01 13:39] LABS: ALBUMIN 3.7 gm/dL (3.5-5.0); CREATININE, serum 3.59 (0.52-1.25); POTASSIUM 4.6 mmol/L (3.4-5.0)
--- NOTE | 2020-01-01 15:58 | NUR ---
DANNI met with the patient to follow up on home health preference. The patient chose [facility]. DANNI attempted to contact Yolanda at [facility]. DANNI left Yolanda a message and faxed over the referral. SW awaiting their screen.
--- NOTE | 2020-01-01 17:02 | NUR ---
Yolanda, at [facility], reports that they are able to accept the patient for services.
[2020-01-01 17:53] VITALS: BP 127/47; PULSE 87; TEMP 98.5
--- NOTE | 2020-01-01 20:08 | NUR ---
Patient attended all therapies today and denied pain. She was independent on her oral cares this morning. She tolerated diet well this shift. Went to dialysis after lunch. Patient returned from dialysis later in the afternoon. Currently she is sitting in her wheelchair, call light in reach and denies any questions. She has family by her side at this time. Reported off to night nurse.
[2020-01-02 06:15] VITALS: BP 126/45; PULSE 79; TEMP 98.2
--- NOTE | 2020-01-02 10:00 | NUR ---
PATIENT RESTING IN BED AT BEDSIDE SHIFT REPORT, HAD BEEN UP TO THE BATHROOM THIS AM. PATIENT DENIED PAIN THIS AM, NO INSULIN GIVEN. PT ASSISTED TO DRESS AND WASH FACE/BRUSH TEETH BEFORE THERAPY.
[2020-01-02 18:03] VITALS: BP 147/96; PULSE 79; TEMP 98.3
--- NOTE | 2020-01-02 18:29 | NUR ---
PT. WALKED 150+ FEET, FROM ROOM TO SCALE TODAY WITH NURSE. PATIENT DENIES PAIN, RECEIVED PRN MIRALAX FOR CONSTIPATION. DISCUSSED POSSIBLE SUPPOSITORY TOMORROW IF NO RESULTS, PT REPORTS NO BM SINCE SATURDAY.
--- NOTE | 2020-01-03 03:24 | NUR ---
Pt currently back in bed. Pt just came back from the restroom. Pt has had 2 large BM's tonight. Pt has her call light within reach.
--- NOTE | 2020-01-03 03:28 | NUR ---
Received report from MICHAEL Granados. Pt is currently ont he phone with her family and will givn me a call whenerver she's done. She had her call light within reach.
[2020-01-03 05:55] VITALS: BP 139/48; PULSE 82; TEMP 98.7
--- NOTE | 2020-01-03 18:05 | NUR ---
Patient resting in bedside chair at this time and is finishing dinner. Patient is alert and oriented, answers questions appropriately. Patient has had no complaints of nausea or vomiting, has called for SBA to use the bathroom and move from bed to chair. Patient remains continent of bowel and bladder. Denies needs at this time, call light within reach.
[2020-01-03 18:29] VITALS: BP 141/58; PULSE 81; TEMP 97.7
--- NOTE | 2020-01-03 19:20 | NUR ---
CHANGE OF SHIFT REPORT RECEIVED FROM DAY SHIFT NURSE. PATIENT UP IN CHAIR, CHAIR ALARM ON. DENIES ANY NEEDS AT THIS TIME.
--- NOTE | 2020-01-03 20:30 | NUR ---
UP IN W/C, CHAIR ALARM ON. DENIES ANY NEEDS AT THIS TIME. DENIES CHEST PAIN/SHORTNESS OF BREATH AT THIS TIME. DENIES NUMBNESS/TINGLING TO EXTREMITIES AT THIS TIME.
[2020-01-04 04:13] VITALS: BP 137/41; PULSE 78; TEMP 98.1
--- NOTE | 2020-01-04 06:46 | NUR ---
CHANGE OF SHIFT REPORT GIVEN TO DAY SHIFT NURSEBESSIE. BED ALARM ON.
[2020-01-04 13:32] LABS: BASO # 0.1 (0.0-0.2); BASO % 0.8 % (0.0-2.0); EOS # 0.2 (0.0-0.7); EOS % 3.4 % (0-4.0); GRAN # 3.9 (1.4-6.5); GRAN % 64.1 % (42.2-75.2); HEMATOCRIT 35.4 % (37.0-47.0); LYMPH # 1.2 (1.2-3.4); LYMPH % 19.5 % (20.0-51.0); MEAN CELL VOLUME 100 fl (80.0-100.0); MEAN CORPUSCULAR HEMOGLOBIN 31 pg (27.0-31.0); MEAN CORPUSCULAR HGB CONC 31 g/dl (33.0-37.0); MEAN PLATELET VOLUME 11.1 fl (7.4-10.4); MONO # 0.7 (0.1-0.6); MONO % 11.7 % (1.7-9.3); PLATELET COUNT 177 K/mm3 (130-400); RED BLOOD COUNT 3.54 M/mm3 (4.10-5.30); REDCELL DISTRIBUTION WIDTH-CV 15.9 % (11.5-14.5)
--- NOTE | 2020-01-04 13:38 | NUR ---
Car Record Clerk met with patient to follow up after the weekend. Patient will be discharging home tomorrow with [facility]. SW read IM form aloud to patient who verbalized understanding and gave SW permission to sign on her behalf. SW placed form in chart and provided copy to patient. SW will continue to follow.
[2020-01-04 13:42] LABS: CALCIUM 10.2 mg/dL (8.4-10.2); CREATININE, serum 4.55 (0.52-1.25); POTASSIUM 4.5 mmol/L (3.4-5.0)
[2020-01-04 16:27] VITALS: BP 124/81; PULSE 82; TEMP 97.5
--- NOTE | 2020-01-04 19:00 | NUR ---
Received report from MICHAEL Franks. Pt is currently sitting in her wheelchair and has no concerns at this time. Pt has her call light within reach and her chair alarm is in place at this time.
--- NOTE | 2020-01-05 01:31 | NUR ---
Pt is currenty sleeping in bed. Pt did wake up to get her heparin at midnight. Pt has her call light within reach and her bed is in lowest position.
[2020-01-05 06:11] VITALS: BP 149/42; PULSE 76; TEMP 98.4
--- NOTE | 2020-01-05 07:15 | NUR ---
Reported off to MICHAEL Granados. Pt is currently in bed. Pt has slept well during the night. Pt blood glucose level was at 88 this morning. MICHAEL Granados was notified and pt has food at her bedside. Pt has her call light within reach.
--- NOTE | 2020-01-05 08:01 | NUR ---
PT. RESTING IN BED AT BEDSIDE SHIFT REPORT. PT WAITING FOR BREAKFAST TO CORRECT A BLOOD SUGAR OF 88. PT DENIES PAIN THIS AM, ASSISTED TO BATHROOM FOR BM BY THIS NURSE.
--- NOTE | 2020-01-05 11:08 | NUR ---
Patient to discharge today with [facility] PT/OT/Nursing. SW contacted Yolanda at [facility] and faxed discharge orders.
--- NOTE | 2020-01-05 13:21 | NUR ---
Discharge QIM scores were reviewed by the team. Code of 4 chosen for toilet hygiene was determined by team discussion to be the most usual performance for this patient during the assessment period. Code of 4 chosen for sit to lying was determined by team discussion to be the most usual performance for this patient during the assessment period. Code of 3 chosen for lying to sitting on side of bed was determined by team discussion to be the most usual performance for this patient during the assessment period. Code of 6 for sit to stand was determined by team discussion to be the most usual performance for this patient during the assessment period. Code of 6 for chair/bed to chair transfers was determined by team discussion to be the most usual performance for this patient during the assessment period. Code of 6 chosen for walk 10 feet was determined by team discussion to be the most usual performance for this patient during the assessment period.--Bisi Noel, PD
--- NOTE | 2020-01-05 14:39 | NUR ---
PT HEALTH SUMMARY, DISCHARGE SUMMARY, AND HOME MEDS PRINTED AND REVIEWED WITH PT. STRESSED IMPORTANCE OF F/U APPTS. REVIEWED MEDICATIONS, CALLED PRESCRIPTIONS FOR VIT D3 AND REFILL FOR IRON TO [facility]. BELONGINGS GATHERED BY NURSE INCLUDING FWW. PT TRANSPORTED VIA WC BY MINE PRODUCTION ENGINEER AND SEATBELTED FOR RIDE HOME. PT AND DAUGHTER DENIED QUESTIONS.
== END 2020-01-05 14:00 | disposition home health service (06) | DRG 291 ==
PROVIDERS: Internal Medicine Nephrology; ADMIT Internal Medicine
PROC: 5A1D70Z Performance of Urinary Filtration, Intermittent, Less than 6 Hours Per Day (ICD-10-PCS; principal; 2019-12-18)
DX: I13.0 Hypertensive heart and chronic kidney disease with heart failure and stage 1 through stage 4 chronic kidney disease, or unspecified chronic kidney disease (principal); J96.21 Acute and chronic respiratory failure with hypoxia; I50.33 Acute on chronic diastolic (congestive) heart failure; N17.9 Acute kidney failure, unspecified; N39.0 Urinary tract infection, site not specified; I25.10 Atherosclerotic heart disease of native coronary artery without angina pectoris; G47.00 Insomnia, unspecified; N18.30 Chronic kidney disease, stage 3 unspecified; I16.0 Hypertensive urgency; E11.22 Type 2 diabetes mellitus with diabetic chronic kidney disease; E66.01 Morbid (severe) obesity due to excess calories; D69.6 Thrombocytopenia, unspecified; E87.6 Hypokalemia; E03.9 Hypothyroidism, unspecified; G47.33 Obstructive sleep apnea (adult) (pediatric); B95.2 Enterococcus as the cause of diseases classified elsewhere; E78.5 Hyperlipidemia, unspecified; Z79.82 Long term (current) use of aspirin; Z79.1 Long term (current) use of non-steroidal anti-inflammatories (NSAID); Z79.4 Long term (current) use of insulin; Z95.5 Presence of coronary angioplasty implant and graft; Z88.0 Allergy status to penicillin; Z88.5 Allergy status to narcotic agent
CPT/HCPCS: 99222-AI; 99231-AI; 99232-AI; 99239; J1644; J1815; J2916; J7030; Q5105

== ENCOUNTER → 2020-03-25 | Outpatient (CLI) | payer MEDICARE, BC | LOC: COL.VAS 12:45 | DX: N18.6 End stage renal disease (principal); T82.590D Other mechanical complication of surgically created arteriovenous fistula, subsequent encounter; Z99.2 Dependence on renal dialysis ==

== ENCOUNTER 2020-09-09 12:11 | Outpatient (CLI) | payer MEDICARE, BC ==
[2005-08-27 12:18] VITALS: BP 148/78
[~2020-09-09] VITALS: Ht 162.6 cm; Wt 114.4 kg
[2020-09-09] VITALS (9 sets, daily range): BP systolic 128–160; BP diastolic 52–98; PULSE 68–80; TEMP 98.2
[~2020-09-09 12:11] MED LIST changes: -TYLENOL 500MG500 MG PO; +TYLENOL PM EXTR1 TA1 PO
[2020-09-09] MEDS ORDERED: NOVOLOG 100U100 U/M1 SQ (13:31)
[2020-09-09] MEDS ORDERED: LEVEMIR100 U/ML SQ (13:32)
[2020-09-09] MEDS ORDERED: IMDUR 60MG60 MG/TAB PO (13:33)
[2020-09-09] MEDS ORDERED: AURYXIA1 GM PO (13:38)
[2020-09-09] MEDS ORDERED: LOPRESSOR 550 MG/TAB PO (13:38)
--- NOTE | 2020-09-09 17:00 | NUR ---
pt returned to express unit at 1453. She did well during recovery/observation period. No bleeding or problems with fistual puncture, site remains covered with clean dry and intact bandaid. i reviewed dc instructions with pt who verbalized understanding. IV was dc'd with cath intact, dressing was applied. Pt was ambulatory in room with steady gait with assist prior to discharge. To exit via wheelchair.
== END 2020-09-09 19:00 | disposition home or self-care (01) ==
LOC: COL.CAR 12:11
DX: T82.898A Other specified complication of vascular prosthetic devices, implants and grafts, initial encounter (principal); Z20.822 Contact with and (suspected) exposure to COVID-19; Z90.710 Acquired absence of both cervix and uterus; Z79.899 Other long term (current) drug therapy; Z79.891 Long term (current) use of opiate analgesic; Z79.82 Long term (current) use of aspirin; Z79.890 Hormone replacement therapy; Z79.02 Long term (current) use of antithrombotics/antiplatelets; Z79.4 Long term (current) use of insulin
CPT/HCPCS: C1769; J1644; J2250; J3010; Q9967

== ENCOUNTER 2020-09-12 20:22 | Inpatient (IN) | payer MEDICARE, BC ==
[~2020-09-12] VITALS: Ht 162.6 cm; Wt 110.5 kg
[~2020-09-12 20:22] MED LIST changes: +AURYXIA1 GM PO; +IMDUR 60MG60 MG/TAB PO; +LEVEMIR100 U/ML SQ; +LOPRESSOR 550 MG/TAB PO
[2020-09-12 20:57] LABS: BASO % 0.2 % (0.0-2.0); GRAN # 3.6 (1.4-6.5); GRAN % 81.3 % (42.2-75.2); HEMATOCRIT 32.4 % (37.0-47.0); HEMOGLOBIN 10.8 g/dl (12.5-16.0); LYMPH # 0.3 (1.2-3.4); LYMPH % 7.3 % (20.0-51.0); MEAN CELL VOLUME 100 fl (80.0-100.0); MEAN CORPUSCULAR HEMOGLOBIN 33 pg (27.0-31.0); MEAN CORPUSCULAR HGB CONC 33 g/dl (33.0-37.0); MEAN PLATELET VOLUME 12.5 fl (7.4-10.4); MONO # 0.5 (0.1-0.6); MONO % 10.5 % (1.7-9.3); PLATELET COUNT 113 K/mm3 (130-400); RED BLOOD COUNT 3.23 M/mm3 (4.10-5.30); REDCELL DISTRIBUTION WIDTH-CV 12.9 % (11.5-14.5)
[2020-09-12 21:13] LABS: INR 1.1 (0.8-3.0); PROTHROMBIN TIME 12.4 SECONDS (9.7-12.8)
[2020-09-12 21:26] LABS: ALBUMIN 3.6 gm/dL (3.5-5.0); CALCIUM 9.4 mg/dL (8.4-10.2); CREATININE, serum 6.11 (0.52-1.25); POTASSIUM 4.2 mmol/L (3.4-5.0); TOTAL PROTEIN 6.7 gm/dL (6.4-8.2)
[2020-09-12 21:58] LABS: COLLECTION METHOD CLEAN CATCH
[2020-09-12 22:18] LABS: MUCOUS Present /lpf; PH 5 (5-8); SQUAMOUS EPITHELIAL 0-2 /hpf; URINE APPEARANCE Cloudy; URINE BACTERIA None Seen /hpf; URINE BILIRUBIN Negative (NEGATIVE); URINE BLOOD 2+ (NEGATIVE); URINE COLOR Amber; URINE GLUCOSE 2+ (NEGATIVE); URINE KETONE Negative (NEGATIVE); URINE LEUKOCYTE ESTERASE Negative (NEGATIVE); URINE NITRATE Negative (NEGATIVE); URINE PROTEIN(semi-quant) 3+ (NEGATIVE)
[2020-09-12 23:57] VITALS: BP 149/98; PULSE 76; TEMP 98.5
[2020-09-13 02:54] VITALS: BP 159/59; PULSE 58; TEMP 98.5
--- NOTE | 2020-09-13 03:03 | NUR ---
Pt came around 0000. stated that she fell 2 yesterday.She has a skin tear in right elbow and left forearm. pt is resting. Will continue to monitor.
--- NOTE | 2020-09-13 07:45 | NUR ---
Shift assessment complete. Pt resting in bed, reports headache. Will contact for medication order. Denies chest pain/SOA/dizziness. Afebrile. Heart RRR. Lungs CTA. A&Ox4. Small skin tears to left forearm and right elbow, both covered by mepilex, CDI. Fistula to left upper arm w/o s/s complication. Left chest dialysis cath w/o s/s complication. Plan for pt to go to dialysis around 0800 this morning. Continuing to monitor.
[2020-09-13 08:05] VITALS: BP 138/88; PULSE 66; TEMP 98.8
--- NOTE | 2020-09-13 08:15 | NUR ---
Pt taken down to dialysis via bed at this time.
[2020-09-13 10:23] LABS: BASO % 0.3 % (0.0-2.0); EOS % 0.3 % (0-4.0); GRAN # 2.7 (1.4-6.5); GRAN % 72.7 % (42.2-75.2); HEMOGLOBIN 10.9 g/dl (12.5-16.0); LYMPH # 0.5 (1.2-3.4); LYMPH % 14.4 % (20.0-51.0); MEAN CELL VOLUME 99 fl (80.0-100.0); MEAN CORPUSCULAR HEMOGLOBIN 33 pg (27.0-31.0); MEAN CORPUSCULAR HGB CONC 34 g/dl (33.0-37.0); MEAN PLATELET VOLUME 12.1 fl (7.4-10.4); MONO # 0.4 (0.1-0.6); MONO % 11.8 % (1.7-9.3); PLATELET COUNT 97 K/mm3 (130-400); RED BLOOD COUNT 3.26 M/mm3 (4.10-5.30); REDCELL DISTRIBUTION WIDTH-CV 12.8 % (11.5-14.5)
[2020-09-13 10:25] LABS: HEMATOCRIT 32.1 % (37.0-47.0)
[2020-09-13 10:28] LABS: ALBUMIN 3.2 gm/dL (3.5-5.0); CALCIUM 9.1 mg/dL (8.4-10.2); CREATININE, serum 6.33 (0.52-1.25); PHOSPHOROUS 5.4 mg/dL (2.5-4.5); POTASSIUM 4.3 mmol/L (3.4-5.0)
[2020-09-13 12:09] VITALS: BP 131/49; PULSE 69; TEMP 98.3
[2020-09-13 12:10] VITALS: BP 136/55
[2020-09-13 16:06] VITALS: BP 152/73; PULSE 85; TEMP 99.7
[2020-09-13 21:40] VITALS: BP 144/34; PULSE 70; TEMP 99
--- NOTE | 2020-09-13 23:06 | NUR ---
PT has been good, daughter was at the beside. pt was of SOB. 1L of oxygen was aplly for comfort. Will continue to monitor.
[2020-09-14 01:18] VITALS: BP 112/50; PULSE 59; TEMP 97.9
[2020-09-14 03:51] VITALS: BP 114/53; PULSE 59; TEMP 97.8
[2020-09-14 08:18] VITALS: BP 117/40; PULSE 64; TEMP 98
--- NOTE | 2020-09-14 08:30 | NUR ---
Shift assessment complete. Pt resting in bed. A&Ox4. Heart RRR. Lungs CTA. Placed on 1 lpm O2 by NC overnight for comfort, sats stable in mid 90s. Denies needs. Call light in reach.
--- NOTE | 2020-09-14 09:42 | NUR ---
DANNI met with the patient to discuss discharge plan. The patient lives in [place] with her , Stef (ph#[phone]). She reports needing some assistance with bathing and has a walker and nocturnal oxygen from [facility]. She states that she is normally on 4 liters at night and that her and daughter help her with bathing. The patient's PCP is Dr. Alphonse Morgan and she receives her medications from [facility]. She reports no difficulties obtaining her meds. The patient does not have a DPOA-HC in EMR, but she states that she does have one completed and that it designates her . She reports that she has a copy at home and that her PCP's office should have a copy. DANNI attempted to contact Dona at [facility] to request a copy. SW left her a voicemail. The patient states that she fell twice before coming into the hospital. She could not get herself up and her was not able to help her up. EMS had to be called both times and they brought her to the hospital the second time. DANNI discussed post-acute rehab upon discharge. The patient was interested in rehab and chose 1) [facility] 2) [facility]. DANNI consulted [facility] Director, Bisi. DANNI contacted and faxed a referral to [facility]. Awaiting screens. DANNI updated MICHAEL Weston, with Dr. Tariq on the above. *Discharge plan: [facility] or SNF*
--- NOTE | 2020-09-14 10:16 | NUR ---
The patient's daughter, Muna, returned DANNI's phone call. DANNI updated her on the d/c plan. Muna was supportive of the patient's decision for post-acute rehab.
--- NOTE | 2020-09-14 11:43 | NUR ---
Patient's next planned HD tx tomorrow, 09/15/2020 @ 0800.
--- NOTE | 2020-09-14 11:48 | NUR ---
First visit from the fence installer foreman. No needs right now.
[2020-09-14 12:11] VITALS: BP 135/49; PULSE 68; TEMP 98
--- NOTE | 2020-09-14 14:02 | NUR ---
Parish, at [facility], reports that they are able to accept the patient for a skilled stay, as long as her dialysis days are able to be moved to [facility].
[2020-09-14 15:58] VITALS: BP 115/40; PULSE 102; TEMP 97.9
[2020-09-14 16:09] LABS: BASO % 0.7 % (0.0-2.0); EOS # 0.1 (0.0-0.7); EOS % 2.4 % (0-4.0); GRAN # 2.2 (1.4-6.5); GRAN % 54.7 % (42.2-75.2); HEMOGLOBIN 10.8 g/dl (12.5-16.0); LYMPH % 25.4 % (20.0-51.0); MEAN CELL VOLUME 103 fl (80.0-100.0); MEAN CORPUSCULAR HEMOGLOBIN 33 pg (27.0-31.0); MEAN CORPUSCULAR HGB CONC 32 g/dl (33.0-37.0); MEAN PLATELET VOLUME 12.3 fl (7.4-10.4); MONO # 0.7 (0.1-0.6); MONO % 16.3 % (1.7-9.3); PLATELET COUNT 105 K/mm3 (130-400); RED BLOOD COUNT 3.26 M/mm3 (4.10-5.30); REDCELL DISTRIBUTION WIDTH-CV 12.9 % (11.5-14.5)
[2020-09-14 16:13] LABS: HEMATOCRIT 33.4 % (37.0-47.0)
[2020-09-14 16:21] LABS: ALBUMIN 3.3 gm/dL (3.5-5.0); CALCIUM 9.1 mg/dL (8.4-10.2); CREATININE, serum 5.22 (0.52-1.25); PHOSPHOROUS 3.8 mg/dL (2.5-4.5); POTASSIUM 3.9 mmol/L (3.4-5.0)
--- NOTE | 2020-09-14 17:52 | NUR ---
Pt in room visiting w/family throughout day. No complaints or concerns today. Scheduled to receive dialysis tomorrow morning.
[2020-09-14 19:51] VITALS: BP 145/58; PULSE 73; TEMP 98.3
--- NOTE | 2020-09-14 21:00 | NUR ---
left upper arm fistula that havent access yet.
[2020-09-15] VITALS (7 sets, daily range): BP systolic 123–146; BP diastolic 38–48; PULSE 68–77; TEMP 97.8–98.7
[2020-09-15 09:39] LABS: BASO % 0.2 % (0.0-2.0); EOS # 0.1 (0.0-0.7); EOS % 3.1 % (0-4.0); GRAN # 2.2 (1.4-6.5); GRAN % 52.7 % (42.2-75.2); HEMOGLOBIN 10.3 g/dl (12.5-16.0); LYMPH # 1.2 (1.2-3.4); LYMPH % 28.9 % (20.0-51.0); MEAN CELL VOLUME 99 fl (80.0-100.0); MEAN CORPUSCULAR HEMOGLOBIN 34 pg (27.0-31.0); MEAN CORPUSCULAR HGB CONC 34 g/dl (33.0-37.0); MEAN PLATELET VOLUME 12.6 fl (7.4-10.4); MONO # 0.6 (0.1-0.6); MONO % 14.6 % (1.7-9.3); PLATELET COUNT 106 K/mm3 (130-400); RED BLOOD COUNT 3.07 M/mm3 (4.10-5.30); REDCELL DISTRIBUTION WIDTH-CV 12.7 % (11.5-14.5)
[2020-09-15 09:40] LABS: HEMATOCRIT 30.4 % (37.0-47.0)
[2020-09-15 09:49] LABS: ALBUMIN 3.1 gm/dL (3.5-5.0); CALCIUM 8.9 mg/dL (8.4-10.2); CREATININE, serum 6.11 (0.52-1.25); PHOSPHOROUS 4.2 mg/dL (2.5-4.5); POTASSIUM 3.8 mmol/L (3.4-5.0)
--- NOTE | 2020-09-15 12:12 | NUR ---
PT TRANSPORTED TO DIALYSIS VIA [facility] AT [place] [id number] VIA WHEELCHAIR.
--- NOTE | 2020-09-15 12:19 | NUR ---
Patient tolerated HD tx with 2.3 L fluid removal today. Next HD tx planned tomorrow, Saturday09/16/20 after rehab.
--- NOTE | 2020-09-15 12:57 | NUR ---
Bisi, [facility] Director, reports that they are able to accept the patient. SW notified MICHAEL Weston, with Dr. Tariq. The patient may be able to d/c tomorrow. SW to continue to follow. *Discharge plan: [facility]*
--- NOTE | 2020-09-15 18:35 | NUR ---
PT REMAINS AFEBRILE, DENIES N,V,D. PT HAS BEEN PASSING GAS AND AMBULATING WELL WITH WALKER. DIALYSIS TODAY 09/15/20, 2.3 LITERS OUT. INSULIN ADMINSTERED ORDERED. MEPILEX DRESSING CHANGED ON RIGHT ELBOW AND LEFT FOREARM. PT EXPRESSES NO ADDITIONAL NEEDS AT THIS TIME. CALL LIGHT WITHIN REACH.
[2020-09-16 03:11] VITALS: BP 131/41; PULSE 70; TEMP 98.5
[2020-09-16 08:24] VITALS: BP 131/42; PULSE 68; TEMP 97.9
[2020-09-16 09:30] LABS: BASO % 0.6 % (0.0-2.0); EOS # 0.2 (0.0-0.7); EOS % 3.7 % (0-4.0); GRAN # 2.7 (1.4-6.5); GRAN % 52.6 % (42.2-75.2); HEMATOCRIT 30.3 % (37.0-47.0); LYMPH # 1.5 (1.2-3.4); MEAN CELL VOLUME 99 fl (80.0-100.0); MEAN CORPUSCULAR HEMOGLOBIN 33 pg (27.0-31.0); MEAN CORPUSCULAR HGB CONC 33 g/dl (33.0-37.0); MONO # 0.7 (0.1-0.6); MONO % 13.5 % (1.7-9.3); PLATELET COUNT 126 K/mm3 (130-400); RED BLOOD COUNT 3.05 M/mm3 (4.10-5.30); REDCELL DISTRIBUTION WIDTH-CV 12.7 % (11.5-14.5)
[2020-09-16 09:44] LABS: ALBUMIN 3.2 gm/dL (3.5-5.0); CALCIUM 9.1 mg/dL (8.4-10.2); CREATININE, serum 4.59 (0.52-1.25); PHOSPHOROUS 3.5 mg/dL (2.5-4.5); POTASSIUM 3.9 mmol/L (3.4-5.0)
[2020-09-16] MEDS ORDERED: CEPHALEXIN500 M1 PO (10:23)
[2020-09-16] MEDS ORDERED: SEPTRA 400 MG-1 TAB PO (10:44)
--- NOTE | 2020-09-16 10:46 | NUR ---
The patient is to discharge today, 09/16, to [facility]. SW contacted and updated the patient's daughter, Muna. No additional needs at this time.
--- NOTE | 2020-09-16 11:18 | NUR ---
PATIENT TOLERATED HD TX WITH 3L FLUID REMOVAL TODAY. NEXT HD TX PLANNED FOR Saturday09/19/20 @ 1230.
== END 2020-09-16 12:15 | DRG 871 ==
LOC: COL.ER 20:22 → MEDICAL 23:00
PROVIDERS: Personal Emergency Response Attendant; Physician Assistant; ADMIT Internal Medicine Nephrology
PROC: 5A1D70Z Performance of Urinary Filtration, Intermittent, Less than 6 Hours Per Day (ICD-10-PCS; principal; 2020-09-13)
DX: R78.81 Bacteremia (principal); N18.6 End stage renal disease; I50.32 Chronic diastolic (congestive) heart failure; I12.0 Hypertensive chronic kidney disease with stage 5 chronic kidney disease or end stage renal disease; R50.9 Fever, unspecified; E11.22 Type 2 diabetes mellitus with diabetic chronic kidney disease; E78.5 Hyperlipidemia, unspecified; E03.9 Hypothyroidism, unspecified; E66.01 Morbid (severe) obesity due to excess calories; G47.33 Obstructive sleep apnea (adult) (pediatric); I25.10 Atherosclerotic heart disease of native coronary artery without angina pectoris; D63.1 Anemia in chronic kidney disease; E11.65 Type 2 diabetes mellitus with hyperglycemia; B95.8 Unspecified staphylococcus as the cause of diseases classified elsewhere; Z95.1 Presence of aortocoronary bypass graft; Z95.3 Presence of xenogenic heart valve; Z79.4 Long term (current) use of insulin; Z79.82 Long term (current) use of aspirin; Z79.01 Long term (current) use of anticoagulants; Z79.890 Hormone replacement therapy; Z88.0 Allergy status to penicillin; Z88.1 Allergy status to other antibiotic agents; Z88.6 Allergy status to analgesic agent; Z20.822 Contact with and (suspected) exposure to COVID-19
CPT/HCPCS: J0690; J1580; J1644; J1815; J7030; Q5105

== ENCOUNTER 2020-09-16 12:20 | Inpatient (IN) | payer MEDICARE, BC ==
[~2020-09-16] VITALS: Ht 162.6 cm; Wt 109.1 kg
[~2020-09-16 12:20] MED LIST changes: +CEPHALEXIN500 M1 PO; +SEPTRA 400 MG-1 TAB PO
--- NOTE | 2020-09-16 12:20 | NUR ---
Patient arrived to unit with . Patient has a good disposition. Melina thayer is a dialysis patient, on 1500 fluid restriction. Patient is SBA with gait belt. Patient ambulates with walker but will let you know if she needs assistance getting up. Patient is continent of bladder and bowel but requires assistance with cleaning self. Patient has chest port and LUE fistula. Patient has BUE ecchymosis in various stages of healing and skin tear BUE. Patient has dry skin which flakes from BLE. Patient states she does not eat meat on Saturday so requests salmon. Patient denies pain at this time. Patient oriented to room and equipment. Call light and bedside table are within reach. Will continue to monitor patient throughout shift.
--- NOTE | 2020-09-16 14:06 | NUR ---
Patient health summary, discharge summary and home meds printed and reviewed with raquel, Bran Mustafa. Stressed importance of follow up appointments. Reviewed medications, provided printed Rx Called prescriptions to pharmacy for Metoprolol and Lipitor Belongings gathered by MICHAEL Kwok. Patient was in possession of his cell phone and kiln charger at time of discharge. Dirty clothes taken from laundry hamper and given to family. Patient transported via wheelchair by MICHAEL Kwok and seatbelted for ride to brother's home. Patient, Bran Mustafa denied questions.
[2020-09-16 15:10] VITALS: BP 130/35; PULSE 79; TEMP 98.2
[2020-09-16 18:00] VITALS: BP 151/88; PULSE 78; TEMP 98.5
[2020-09-17 05:32] VITALS: BP 146/46; PULSE 68; TEMP 98
[2020-09-17 07:22] VITALS: BP 133/53; PULSE 66; TEMP 98.6
--- NOTE | 2020-09-17 08:00 | NUR ---
Patient sitting up in bed watching TV. VSS. Dialysis catheter CDI. Fistula LUE CDI. Denies pain and discomfort. Reports being up since getting VS in the morning. No further needs expressed from the patient. Call light within reach. Bed alarm on
[2020-09-17 11:40] VITALS: BP 123/43; PULSE 74; TEMP 98.1
--- NOTE | 2020-09-17 12:17 | NUR ---
Chaplain terry and offered support with patient.
--- NOTE | 2020-09-17 15:42 | NUR ---
Plans to return home with Stef [phone]. Patient indicated that her DTR is an alterate contact Muna [phone]. PCP Kamryn Morgan, Dr. Mann, Dr. Tariq, Dr. Hassan, and [facility]. Patient indicated that she uses a walker and CPAP with concentrator with 4 liters of oxygen. Patient indicated that her daughter is bringing up the Cpap machince. Denies any other supports Home health.
[2020-09-17 16:00] VITALS: BP 144/96; PULSE 76; TEMP 98.1
--- NOTE | 2020-09-17 17:44 | NUR ---
Patient had an uneventful day. Spent most of the shift in the recliner. VSS. Denies pain and discomfort. Patient called nursing staff for assistance as needed. Call light within reach. Chair alarm on. No further need
--- NOTE | 2020-09-17 21:00 | NUR ---
PATIENT IS IN THE ROOM SITTING ON A CHAIR.DENIES PAIN.SAFETY MEASURES MAINTAINED.NO OTHER NEEDS AT THIS TIME.
[2020-09-18 05:00] VITALS: BP 146/44; PULSE 69; TEMP 98.1
--- NOTE | 2020-09-18 06:21 | NUR ---
PATIENT HAD A CALM NIGHT.DENIES PAIN.CALLS APPROPRIATELY.SAFETY MEASURES MAINTAINED.NO OTHER NEEDS AT THIS TIME.
--- NOTE | 2020-09-18 09:23 | NUR ---
Patient did well with breakfast this am. Aware of her fluid and diet restrictions. Patient Very plesent. Up to thebathroom with Cupola Tender assist. Reports always feeling the urse to urinate, but can not go normally. Left restricted extrimety. non usable Fistla present. brusing noted to arm. Dialysis cath to right chest. Will monitor.
--- NOTE | 2020-09-18 10:14 | NUR ---
Patient sitting up in chair. Ambulated bush with gaitbelt & walker.
--- NOTE | 2020-09-18 12:54 | NUR ---
Manjula did well with lunch. Understood increase in insulin dose per . !0 units given with lunch.
[2020-09-18 17:01] VITALS: BP 159/52; PULSE 74; TEMP 98
--- NOTE | 2020-09-18 17:47 | NUR ---
Patient sitting up in chair. did okay with her dinner. Insulin per sliding scale. Will continue to [facility] & report off to nightnurse
--- NOTE | 2020-09-18 19:15 | NUR ---
NOTIFIED CLAUDIA DAVISON OF REDNESS UNDER BILAT BREAST. SEE NEW ORDER.
--- NOTE | 2020-09-18 21:15 | NUR ---
CLEANED AND DRIED UNDER BILAT BREASTS. APPLIED DESENEX POWDER TO THIS RED AREAS.
--- NOTE | 2020-09-18 21:39 | NUR ---
ASSISTED PT TO BR WITH WALKER. STEADY GAURDED GAIT. REQUIRED ASSISTED WITH HYGIENE. THEN TRANSFERRED TO BED. NEEDED ASSIST LIFTING LEGS INTO BED. CALL LIGHT IN REACH. BED ALARM SET.
--- NOTE | 2020-09-18 22:00 | NUR ---
PT REFUSED CPAP TONIGHT. WILL MONITOR SATS PRN.
[2020-09-19 05:44] VITALS: BP 137/45; PULSE 73; TEMP 97.9
--- NOTE | 2020-09-19 06:30 | NUR ---
Report received from MICHAEL Erazo. Patient is A&O x 4 and resting in bed. Call light and bedside table are within reach. Will continue to monitor patient throughout shift.
--- NOTE | 2020-09-19 13:54 | NUR ---
Admission QIM scores were reviewed by the team. Code of 3 chosen for toilet hygiene was determined by team discussion to be the most usual performance for this patient during the assessment period. Code of 4 chosen for toileting transfers was determined by team discussion to be the most usual performance for this patient during the assessment period. Code of 3 chosen for shower/bathe self was determined by team discussion to be the most usual performance for this patient during the assessment period. Code of 4 chosen for upper body dressing was determined by team discussion to be the most usual performance for this patient during the assessment period. Code of 4 chosen for lower body dressing was determined by team discussion to be the most usual performance for this patient during the assessment period. Code of 3 chosen for lying to sitting on side of bed was determined by team discussion to be the most usual performance for this patient during the assessment period. Code of 3 for sit to stand was determined by team discussion to be the most usual performance for this patient during the assessment period. Code of 4 chosen for walk 10 feet was determined by team discussion to be the most usual performance for this patient during the assessment period.--Bisi Noel,
[2020-09-19 14:31] LABS: MEAN CELL VOLUME 99 fl (80.0-100.0); MEAN CORPUSCULAR HGB CONC 33 g/dl (33.0-37.0); MEAN PLATELET VOLUME 11.7 fl (7.4-10.4); PLATELET COUNT 142 K/mm3 (130-400); RED BLOOD COUNT 2.88 M/mm3 (4.10-5.30); REDCELL DISTRIBUTION WIDTH-CV 13.1 % (11.5-14.5)
[2020-09-19 14:32] LABS: HEMATOCRIT 28.5 % (37.0-47.0); HEMOGLOBIN 9.5 g/dl (12.5-16.0); MEAN CORPUSCULAR HEMOGLOBIN 33 pg (27.0-31.0)
[2020-09-19 14:42] LABS: ALBUMIN 3.2 gm/dL (3.5-5.0); CALCIUM 9.3 mg/dL (8.4-10.2); CREATININE, serum 6.14 (0.52-1.25); PHOSPHOROUS 3.9 mg/dL (2.5-4.5); POTASSIUM 3.8 mmol/L (3.4-5.0)
[2020-09-19 14:48] LABS: EOSINOPHIL 1 % (0-4); LYMPHOCYTE 18 % (20.0-51.0); NEUTROPHILS 75 % (42.0-75.2)
[2020-09-19 14:49] LABS: PLATELET ESTIMATE NORMAL (NORMAL)
[2020-09-19 16:51] VITALS: BP 163/63; PULSE 72; TEMP 97.7
--- NOTE | 2020-09-19 16:52 | NUR ---
Patient tolerated HD tx with 2.8L fluid removal today. Next planned HD tx on Thursday 09/21 @ 1230.
--- NOTE | 2020-09-19 19:10 | NUR ---
RECEIVED CHANGE OF SHIFT REPORT FROM DAY SHIFT NURSE. PATIENT UP IN W/C VISITING FAMILY, CHAIR ALARM ON. PATIENT DENIES ANY NEEDS, CALL LIGHT WITHIN REACH.
--- NOTE | 2020-09-20 00:03 | NUR ---
PATIENT SLEEPING, DOES NOT WAKE WHEN STAFF ENTER ROOM. BREATHING NONLABORED AND EVEN. BED ALARM ON WITH CALL LIGHT WITHIN REACH.
--- NOTE | 2020-09-20 01:28 | NUR ---
PATIENT SLEEPINGS, DOES NOT WAKE WHEN STAFF ENTER ROOM. BED ALARM ON, CALL LIGHT WITHIN REACH. RESPIRATIONS NONLABORED AND EVEN.
[2020-09-20 05:20] VITALS: BP 138/45; PULSE 72; TEMP 98.6
--- NOTE | 2020-09-20 06:30 | NUR ---
REPORT RECEIVED FROM MICHAEL BYRNE. PATIENTIS GETTING UP AND GETTING DRESSED. PATIENT IS SITTING IN WC. CALL LIGHT AND BEDSIDE TABLE ARE WITHIN REACH. WILL CONTINUE TO MONITOR THROUGHOUT SHIFT.
--- NOTE | 2020-09-20 07:13 | NUR ---
CHANGE OF SHIFT REPORT GIVEN TO DAY SHIFT NURSE, KAPIL RODRIGUEZ.
[2020-09-20 07:26] VITALS: BP 113/76; PULSE 79; TEMP 98.3
--- NOTE | 2020-09-20 14:02 | NUR ---
Patient is resting comfortably in recliner. Patient has a good disposition. All therapies are complete. Will continue to monitor patient throughout shift.
[2020-09-20 16:00] VITALS: BP 126/78; PULSE 82; TEMP 97.7
--- NOTE | 2020-09-20 19:00 | NUR ---
RECEIVED CHANGE OF SHIFT REPORT FROM DAY SHIFT NURSE. PATIENT UP IN CHAIR, CHAIR ALARM ON, CALL LIGHT WITHIN REACH. SPOUSE PRESENT. DENIES ANY NEEDS DURING REPORT.
--- NOTE | 2020-09-20 20:00 | NUR ---
DENIES CHEST PAIN/SOA/NAUSEA AT THIS TIME. BED ALARM ON WHEN IN BED/CHAIR ALARM ON WHEN UP IN CHAIR WITH CALL LIGHT WITHIN REACH. DENIES ANY NEEDS AT THIS TIME.
--- NOTE | 2020-09-21 02:00 | NUR ---
SLEEPING, DOES NOT WAKE WHEN STAFF ENTER ROOM. BED ALARM ON WITH CALL LIGHT WITHIN REACH. BREATHING NONLABORED AND EVEN.
[2020-09-21 04:07] VITALS: BP 115/45; PULSE 73; TEMP 97.9
--- NOTE | 2020-09-21 06:57 | NUR ---
CHANGE OF SHIFT REPORT GIVEN TO DAY SHIFT NURSE, KAPIL RODRIGUEZ.
--- NOTE | 2020-09-21 07:11 | NUR ---
PATIENT SLEEPING IN BED. CALL LIGHT AND BEDSIDE TABLE ARE WITHIN REACH. WILL CONTINUE TO MONITOR PATIENT THROUGHOUT SHIFT.
--- NOTE | 2020-09-21 09:57 | NUR ---
Commercial Credit Analyst staffed with the team. A family meeting to be set for 09/22 at 1300. DANNI contacted the patient's daughter, Muna to discuss the meeeting. She was agreeable and will attend the meeting in person. Muna inquired about the patient's attending as well. The hospital vistor policy at this time is 1 person per patient per visit. DANNI to discuss the above with Bisi, [facility] Director. Bisi will have to discuss with munitions handler. DANNI to contact Muna once a decision is made. DANNI collaborated the above informatio with Bisi.
--- NOTE | 2020-09-21 12:39 | NUR ---
Patient was taken down to dialysis. Patient ambulated to the bathroom via walker and SBA with gait belt prior to being transferred to dialysis.
[2020-09-21 14:13] LABS: MEAN CELL VOLUME 100 fl (80.0-100.0); MEAN CORPUSCULAR HGB CONC 33 g/dl (33.0-37.0); MEAN PLATELET VOLUME 11.4 fl (7.4-10.4); PLATELET COUNT 153 K/mm3 (130-400); RED BLOOD COUNT 2.81 M/mm3 (4.10-5.30); REDCELL DISTRIBUTION WIDTH-CV 13.5 % (11.5-14.5)
[2020-09-21 14:18] LABS: HEMATOCRIT 28.2 % (37.0-47.0); HEMOGLOBIN 9.2 g/dl (12.5-16.0); MEAN CORPUSCULAR HEMOGLOBIN 33 pg (27.0-31.0)
[2020-09-21 14:22] LABS: ALBUMIN 3.4 gm/dL (3.5-5.0); CALCIUM 9.3 mg/dL (8.4-10.2); CREATININE, serum 7.06 (0.52-1.25); POTASSIUM 4.7 mmol/L (3.4-5.0)
[2020-09-21 14:28] LABS: BAND 5 % (0-10); BASOPHIL 2 % (0-2); EOSINOPHIL 2 % (0-4); LYMPHOCYTE 15 % (20.0-51.0); METAMYELOCYTE 2 % (0-0); NEUTROPHILS 69 % (42.0-75.2)
[2020-09-21 14:29] LABS: ANISOCYTOSIS 1+; HYPOCHROMIA 1+; MICROCYTOSIS 1+; PLATELET ESTIMATE NORMAL (NORMAL)
--- NOTE | 2020-09-21 16:16 | NUR ---
Patient tolerated HD tx with 3L fluid removal today. Next planned HD tx on Saturday09/23/20 @ 1230.
[2020-09-21 16:31] LABS: PHOSPHOROUS 5.5 mg/dL (2.5-4.5)
[2020-09-21 18:00] VITALS: BP 102/56; PULSE 76; TEMP 98.8
[2020-09-22 04:23] VITALS: BP 110/59; PULSE 74; TEMP 98
[2020-09-22 06:25] VITALS: BP 125/40; PULSE 73; TEMP 98.8
--- NOTE | 2020-09-22 08:03 | NUR ---
Patient resting in bed, call light in reach and independent with eating. Pain 03/20 to neck denies need for pain meds at this time.
--- NOTE | 2020-09-22 13:05 | NUR ---
Conducted Family Meeting w/ pt & her daughter, Solange. Also present was PT, OT, & Wood Ski Maker. The team explained how pt has been doing & recommendations to make her more independent at home. Informed them of d/c for 09/27/20 to home w/ home health PT/OT. Pt & daughter asked questions which were answered by the team. Pt stated she has had [facility] before & would like to use them again.
--- NOTE | 2020-09-22 15:33 | NUR ---
DANNI faxed referral to [facility] and contacted Katie. Guerrero to contact Nathalia I[facility] Director once the referral is reviewed.
[2020-09-22 18:00] VITALS: BP 144/64; PULSE 76; TEMP 97.9
--- NOTE | 2020-09-22 20:18 | NUR ---
Patient attended all therapies this shift. Reported some pain this shift, but refused any pain meds. No dialysis today. See new orders to increase scheduled Novolog from 4 U to 6 U TIDF. Patient currently getting ready for bed with SHLOMO/Bentley. Reported off to night nurse.
--- NOTE | 2020-09-22 21:59 | NUR ---
PT RESTING IN BED. IN GOOD SPIRITS. TALAKTIVE. DENIES PAIN AT THIS TIME. CALL LIGHT IN REACH. BED ALARM SET.
[2020-09-23 04:41] VITALS: BP 133/45; PULSE 74; TEMP 97.9
--- NOTE | 2020-09-23 07:29 | NUR ---
Pt assessment complete. Pt is sitting up in bed eating breakfast, she is A/O x4. Her breathing is even and unlabored on RA. Pt denies SOB. No pain at this time. Denies N/V. Mepilex dressings in place to bilateral arms from previous falls. Old fistula to LUE CDI, some bruising noted, thrill and bruit present. Dialysis catheter in place to R chest, dressing CDI. No further needs at this time. Call light within reach.
[2020-09-23 12:43] LABS: BASO % 0.5 % (0.0-2.0); EOS # 0.1 (0.0-0.7); EOS % 1.4 % (0-4.0); GRAN # 5.7 (1.4-6.5); GRAN % 71.2 % (42.2-75.2); LYMPH # 1.2 (1.2-3.4); MEAN CELL VOLUME 101 fl (80.0-100.0); MEAN CORPUSCULAR HGB CONC 33 g/dl (33.0-37.0); MEAN PLATELET VOLUME 11.5 fl (7.4-10.4); MONO # 0.9 (0.1-0.6); MONO % 10.8 % (1.7-9.3); PLATELET COUNT 149 K/mm3 (130-400); RED BLOOD COUNT 2.67 M/mm3 (4.10-5.30); REDCELL DISTRIBUTION WIDTH-CV 13.8 % (11.5-14.5)
[2020-09-23 12:44] LABS: HEMATOCRIT 26.9 % (37.0-47.0); HEMOGLOBIN 8.8 g/dl (12.5-16.0); MEAN CORPUSCULAR HEMOGLOBIN 33 pg (27.0-31.0)
[2020-09-23 14:03] LABS: ALBUMIN 3.5 gm/dL (3.5-5.0); CALCIUM 9.5 mg/dL (8.4-10.2); CREATININE, serum 6.79 (0.52-1.25); PHOSPHOROUS 5.6 mg/dL (2.5-4.5); POTASSIUM 4.9 mmol/L (3.4-5.0)
--- NOTE | 2020-09-23 16:12 | NUR ---
Patient tolerated HD tx with 2.5L fluid removal. Next planned HD tx on Saturday09/26/20 @ 1200.
[2020-09-23 18:13] VITALS: BP 120/49; PULSE 78; TEMP 98.2
--- NOTE | 2020-09-23 18:29 | NUR ---
Pt back from dialysis, denies pain. Did have a small emesis while eating dinner. Sprite provided. Pt independent in the room. No needs at this time.
--- NOTE | 2020-09-23 20:30 | NUR ---
PATIENT IS INDEPENDENT IN THE ROOM.DENIES PAIN.SAFETY MEASURES IN PLACE.NO OTHER NEEDS AT THIS TIME.
[2020-09-24 06:07] VITALS: BP 144/79; PULSE 73; TEMP 97.8
--- NOTE | 2020-09-24 06:27 | NUR ---
PATIENT HAD A CALM NIGHT.DENIES PAIN.INDEPENDENT IN THE ROOM.NO OTHER NEEDS AT THIS TIME.
--- NOTE | 2020-09-24 10:44 | NUR ---
Patient returned from Group Therapy and is currently resting in recliner and is independent in her room with a walker. Patient denies pain at this time. This nurse provided hygiene under patients bilateral breasts and applied desenex to area. Applied lotion to bilateral legs. Will continue to monitor.
--- NOTE | 2020-09-24 11:36 | NUR ---
Patient resting in recliner, call light in reach and mod I in room.
[2020-09-24 15:08] VITALS: BP 140/53; PULSE 87; TEMP 97.9
[2020-09-25 06:13] VITALS: BP 139/56; PULSE 74; TEMP 97.4
--- NOTE | 2020-09-25 06:24 | NUR ---
RESTING QUIETLY. PT c/o HER LEGS ITCHING BUT NO REDNESS/RASH COULD BE SEEN. PROVIDED SOME LOTION. TYLENOL FOR GENERAL DISCOMFORT. INDEPENDENT IN ROOM.
--- NOTE | 2020-09-25 07:40 | NUR ---
Patient resting in bed, call light in reach and independent in room. Will continue to monitor.
--- NOTE | 2020-09-25 10:10 | NUR ---
Received call from Dr. Tariq, reporting that patient would be going to dialysis today and will having a procedure done on Saturday. This was communicated to the patient. Received call from Mohini with Dialysis asking for patient to arrive to dialysis by 12 or 12:30 PM today. The kitchen was called and they will deliver her meal by 11 AM.
--- NOTE | 2020-09-25 11:21 | NUR ---
Patient has had bilateral leg and forearm itching the last two nights. No rash has been observed, but it has caused patient to be awake most of the night. This was communicated to Dr. Tariq nurseMohini for Dr. Tariq to address. Will continue to monitor.
--- NOTE | 2020-09-25 12:27 | NUR ---
Patient currently at dialysis at this time.
[2020-09-25 12:50] LABS: BASO # 0.1 (0.0-0.2); BASO % 0.7 % (0.0-2.0); EOS # 0.3 (0.0-0.7); EOS % 3.4 % (0-4.0); GRAN # 5.3 (1.4-6.5); GRAN % 71.8 % (42.2-75.2); LYMPH # 1.2 (1.2-3.4); LYMPH % 16.4 % (20.0-51.0); MEAN CELL VOLUME 102 fl (80.0-100.0); MEAN CORPUSCULAR HGB CONC 33 g/dl (33.0-37.0); MEAN PLATELET VOLUME 11.4 fl (7.4-10.4); MONO # 0.5 (0.1-0.6); PLATELET COUNT 133 K/mm3 (130-400); RED BLOOD COUNT 2.16 M/mm3 (4.10-5.30); REDCELL DISTRIBUTION WIDTH-CV 14.2 % (11.5-14.5)
[2020-09-25 12:57] LABS: ALBUMIN 3.1 gm/dL (3.5-5.0); CALCIUM 9.6 mg/dL (8.4-10.2); CREATININE, serum 6.22 (0.52-1.25); PHOSPHOROUS 5.4 mg/dL (2.5-4.5); POTASSIUM 4.8 mmol/L (3.4-5.0)
[2020-09-25 13:09] LABS: HEMOGLOBIN 7.2 g/dl (12.5-16.0); MEAN CORPUSCULAR HEMOGLOBIN 33 pg (27.0-31.0)
--- NOTE | 2020-09-25 14:49 | NUR ---
Received clarification from Dr. Hassan that he will be performing a Ligation of the fistula tribatary of the left arm tomorrow morning at 10:30 am. He put a medical hold for tomorrow due to this procedure. Patient went to dialysis today due to this procedure tomorrow. See new orders for Benadryl to help with HS leg and arm itching. Will continue to monitor.
--- NOTE | 2020-09-25 15:45 | NUR ---
Patient tolerated HD tx with 1.2L fluid removal. Next planned HD tx on 09/27/20 @ 0830.
[2020-09-25 16:35] VITALS: BP 137/55; PULSE 89; TEMP 98.5
--- NOTE | 2020-09-25 19:30 | NUR ---
RECEIVED CHANGE OF SHIFT REPORT FROM DAY SHIFT NURSE. PATIENT UP IN CHAIR WITH CALL LIGHT WITHIN REACH. UP IN ROOM PER SELF WITH NO REPORTED PROBLEMS OR CONCERNS. DENIES ANY NEEDS DURING TIME OF REPORT.
[2020-09-26] VITALS (9 sets, daily range): BP systolic 107–135; BP diastolic 37–52; PULSE 70–81; TEMP 97.8–98.1
--- NOTE | 2020-09-26 07:37 | NUR ---
CHANGE OF SHIFT REPORT GIVEN TO DAY SHIFT NURSE, BRITTANY RODRIGUEZ.
--- NOTE | 2020-09-26 09:00 | NUR ---
Patient alert and oriented, answers questions appropriately. See assessment. Hemo dialysis catheter to right chest wall with dressing CDI. AV fistula to LUE, bruit noted, pulses palpable. Ambulates with stand by assist, walker and gait belt. Gait steady. No c/o at this time.
--- NOTE | 2020-09-26 10:09 | NUR ---
Spoke w/ pt about d/c for tomorrow, 09/27/20. She states she has no concerns or worries at this time. Told her that [facility] had been contacted for referral but SW had not heard anything back from them, so will follow up. Reviewed the Medicare Rights form w/ pt & pt signed.
--- NOTE | 2020-09-26 10:22 | NUR ---
To surgery via bed with surgical staff at this time.
--- NOTE | 2020-09-26 12:18 | NUR ---
Patient returns from surgery via bed with surgery staff at 1215. Assessment unchanged except 1cm incision to LUE with edges well approximated, no redness or drainage noted. Patient drowsy, awakens to verbal stimuli. No c/o at this time.
[2020-09-27 04:10] VITALS: BP 116/59; PULSE 72; TEMP 98
--- NOTE | 2020-09-27 04:44 | NUR ---
Patient had company last night. She left around 2100. She asked for Benadryl before she sleep last night. She denies pain or SOB. No drainage or redness noted in her LUE in the incision site. Slept most of the night without any complains. She called to use the bathroom twice standby assist. She will have dialysis today and inform patient about the time. No complains noted overnight. Call light is within reach. Continue to monitor.
--- NOTE | 2020-09-27 07:30 | NUR ---
PT GETTING READY FOR THE DAY. DIALYSIS SCHEDULED THIS AM INPATIENT. THE PT IS INDEPENDENT TO THE BATHROOM, AND TO GET DRESSED. PT DENIES ANY PAIN. NO NEEDS AT THIS TIME. WILL PREPARE FOR DISCHARGE TODAY. NO FURTHER CONCERN.
[2020-09-27] MEDS ORDERED: DESENEX TP (08:45)
[2020-09-27] MEDS ORDERED: ZEMPLAR1 MCG PO (08:46)
[2020-09-27] MEDS ORDERED: TUMS500 MG PO (08:46)
--- NOTE | 2020-09-27 09:26 | NUR ---
Faxed d/c orders & face to face to [facility][Note 3].
[2020-09-27 10:15] LABS: ALBUMIN 3.3 gm/dL (3.5-5.0); BASO # 0.1 (0.0-0.2); BASO % 0.8 % (0.0-2.0); CALCIUM 9.5 mg/dL (8.4-10.2); CREATININE, serum 5.74 (0.52-1.25); EOS # 0.3 (0.0-0.7); EOS % 5.1 % (0-4.0); GRAN # 3.9 (1.4-6.5); GRAN % 58.9 % (42.2-75.2); LYMPH # 1.8 (1.2-3.4); LYMPH % 26.9 % (20.0-51.0); MEAN CELL VOLUME 105 fl (80.0-100.0); MEAN CORPUSCULAR HGB CONC 32 g/dl (33.0-37.0); MONO # 0.5 (0.1-0.6); MONO % 7.5 % (1.7-9.3); PHOSPHOROUS 5.4 mg/dL (2.5-4.5); PLATELET COUNT 129 K/mm3 (130-400); POTASSIUM 5.1 mmol/L (3.4-5.0); RED BLOOD COUNT 2.13 M/mm3 (4.10-5.30); REDCELL DISTRIBUTION WIDTH-CV 15.5 % (11.5-14.5)
[2020-09-27 10:21] LABS: HEMATOCRIT 22.4 % (37.0-47.0); HEMOGLOBIN 7.2 g/dl (12.5-16.0); MEAN CORPUSCULAR HEMOGLOBIN 34 pg (27.0-31.0)
--- NOTE | 2020-09-27 11:00 | NUR ---
PT REMAINS AT DIALYSIS AT THIS TIME.
--- NOTE | 2020-09-27 11:59 | NUR ---
Patient tolerated her HD tx with 500 mL fluid removal today. Next planned HD tx on 09/29/2020 @ [facility].
--- NOTE | 2020-09-27 12:22 | NUR ---
Visited w/ pt about d/c plans for today. Told her referral & d/c orders were sent to [facility]. She stated she is very thankful for everyone & feels she is doing much better. Pt had no questions or concerns at this time.
== END 2020-09-27 15:30 | disposition home health service (06) | DRG 853 ==
PROVIDERS: Internal Medicine Nephrology; Surgery; ADMIT Internal Medicine
PROC: 5A1D70Z Performance of Urinary Filtration, Intermittent, Less than 6 Hours Per Day (ICD-10-PCS; 2020-09-19)
PROC: 05LF0ZZ Occlusion of Left Cephalic Vein, Open Approach (ICD-10-PCS; 2020-09-26)
PROC: 05LA0ZZ Occlusion of Left Brachial Vein, Open Approach (ICD-10-PCS; principal; 2020-09-26 10:30)
DX: R78.81 Bacteremia (principal); N18.6 End stage renal disease; J96.20 Acute and chronic respiratory failure, unspecified whether with hypoxia or hypercapnia; I50.32 Chronic diastolic (congestive) heart failure; I13.2 Hypertensive heart and chronic kidney disease with heart failure and with stage 5 chronic kidney disease, or end stage renal disease; I82.90 Acute embolism and thrombosis of unspecified vein; I11.0 Hypertensive heart disease with heart failure; E11.22 Type 2 diabetes mellitus with diabetic chronic kidney disease; D63.1 Anemia in chronic kidney disease; G47.33 Obstructive sleep apnea (adult) (pediatric); E03.9 Hypothyroidism, unspecified; D69.6 Thrombocytopenia, unspecified; I25.10 Atherosclerotic heart disease of native coronary artery without angina pectoris; R79.89 Other specified abnormal findings of blood chemistry; E66.01 Morbid (severe) obesity due to excess calories; F32.9 Major depressive disorder, single episode, unspecified; F41.9 Anxiety disorder, unspecified; G47.00 Insomnia, unspecified; E78.5 Hyperlipidemia, unspecified; Z79.82 Long term (current) use of aspirin; Z79.4 Long term (current) use of insulin; Z99.81 Dependence on supplemental oxygen; Z99.2 Dependence on renal dialysis; Z95.5 Presence of coronary angioplasty implant and graft; Z95.2 Presence of prosthetic heart valve; Z95.1 Presence of aortocoronary bypass graft; Z90.710 Acquired absence of both cervix and uterus; Z88.5 Allergy status to narcotic agent; Z88.0 Allergy status to penicillin; Z88.1 Allergy status to other antibiotic agents; Z91.81 History of falling
CPT/HCPCS: 99222-AI; 99231-AI; 99232-AI; 99239; J0690; J1644; J1756; J1815; J2250; J2405; J2704; J3010; J7030; Q5105

== ENCOUNTER 2020-10-25 08:36 | Outpatient (CLI) | payer MEDICARE, BC ==
[2005-08-27 12:18] VITALS: BP 148/78
[~2020-10-25] VITALS: Ht 162.7 cm; Wt 108.9 kg
[2020-10-25] VITALS (7 sets, daily range): BP systolic 111–172; BP diastolic 43–80; PULSE 71–88; TEMP 98
[~2020-10-25 08:36] MED LIST changes: +DESENEX TP; +TUMS500 MG PO; +ZEMPLAR1 MCG PO
--- NOTE | 2020-10-25 10:52 | NUR ---
SEE MERGE DOCUMENTATION FOR MEDICATION ADMINISTRATION TIMES AND INTRA/POST PROCEDURE SEDATION ASSESSMENTS.
--- NOTE | 2020-10-25 11:30 | NUR ---
pt returned to eu 12 via bed from labor representative, awake and alert. has dressing over right upper chest that is clean and dry. pt has no c/o, takes juice and snack, call light in reach
--- NOTE | 2020-10-25 12:20 | NUR ---
pt sits on side of bed, tolerates well, reviewed discharge inst. with pt on care of site and modereate sedation instructions, pt will have dialysis again on . iv d'cd intact. pt dressed, discharged via w/c to car with
--- NOTE | 2020-10-25 12:30 | NUR ---
pt has no requests, now in room. dressing remains the same.
== END 2020-10-25 12:20 | disposition home or self-care (01) ==
LOC: COL.RAD 08:36
DX: Z49.01 Encounter for fitting and adjustment of extracorporeal dialysis catheter (principal); I13.11 Hypertensive heart and chronic kidney disease without heart failure, with stage 5 chronic kidney disease, or end stage renal disease; N18.6 End stage renal disease; Z20.822 Contact with and (suspected) exposure to COVID-19; Z90.710 Acquired absence of both cervix and uterus; Z95.1 Presence of aortocoronary bypass graft
CPT/HCPCS: J1644; J2250; J3010; J7050

== ENCOUNTER 2020-10-31 06:02 | Inpatient (IN) | payer MEDICARE, BC ==
[~2020-10-31] VITALS: Ht 162.6 cm; Wt 110.7 kg
[2020-10-31 06:34] LABS: COLLECTION METHOD CLEAN CATCH
[2020-10-31 06:40] LABS: ALBUMIN 3.9 gm/dL (3.5-5.0); BILIRUBIN,TOTAL 1.1 mg/dL (0.0-1.0); CALCIUM 9.3 mg/dL (8.4-10.2); CREATININE, serum 5.43 (0.52-1.25); POTASSIUM 4.6 mmol/L (3.4-5.0); TOTAL PROTEIN 7.4 gm/dL (6.4-8.2)
[2020-10-31 06:41] LABS: BASO % 0.4 % (0.0-2.0); EOS % 0.2 % (0-4.0); GRAN # 3.9 (1.4-6.5); GRAN % 75.2 % (42.2-75.2); HEMATOCRIT 40.1 % (37.0-47.0); HEMOGLOBIN 12.8 g/dl (12.5-16.0); LYMPH # 0.5 (1.2-3.4); MEAN CELL VOLUME 106 fl (80.0-100.0); MEAN CORPUSCULAR HEMOGLOBIN 34 pg (27.0-31.0); MEAN CORPUSCULAR HGB CONC 32 g/dl (33.0-37.0); MEAN PLATELET VOLUME 12.1 fl (7.4-10.4); MONO # 0.8 (0.1-0.6); MONO % 14.6 % (1.7-9.3); PLATELET COUNT 100 K/mm3 (130-400); RED BLOOD COUNT 3.79 M/mm3 (4.10-5.30); REDCELL DISTRIBUTION WIDTH-CV 14.3 % (11.5-14.5)
[2020-10-31 06:46] LABS: MUCOUS Present /lpf; PH 5 (5-8); URINE APPEARANCE Hazy; URINE BACTERIA Rare /hpf; URINE BILIRUBIN Negative (NEGATIVE); URINE BLOOD 1+ (NEGATIVE); URINE COLOR Yellow; URINE GLUCOSE Negative (NEGATIVE); URINE KETONE Negative (NEGATIVE); URINE LEUKOCYTE ESTERASE Negative (NEGATIVE); URINE NITRATE Negative (NEGATIVE); URINE PROTEIN(semi-quant) 2+ (NEGATIVE); URINE UROBILINOGEN Negative (NEGATIVE)
--- NOTE | 2020-10-31 11:15 | NUR ---
Pt. admitted to surgical unit room 323. Dr. Tariq in to see the patient at this time. Vitals to be obtained when physician is done w/ assessing patient. Pt. reporting pain to her back. No orders for pain med available on MAY at this time, will wait for Dr. Tariq to place new orders after he sees the patient.
--- NOTE | 2020-10-31 11:20 | NUR ---
Pt. at dialysis. PRN pain medication was administered per pt. request.
[2020-10-31 11:30] VITALS: BP 107/52; PULSE 66; TEMP 98.2
--- NOTE | 2020-10-31 15:06 | NUR ---
PATIENT TOLERATED HD TX WITHOUT ANY FEVER, CHILLS OR SHIVERING. NO FLUID REMOVAL, PATIENT BELOW HER DRY WEIGHT. NEXT PLANNED HD TX ON Saturday11/02/20 @ 0800.
[2020-10-31 16:00] VITALS: BP 126/55; PULSE 63; TEMP 97.9
--- NOTE | 2020-10-31 17:35 | NUR ---
Stage II pressure sore noted to pt.'s coccyx/ sacrum area. Surrounding skin noted to be blanching. Foam dressing applied to protect pt.'s skin.
--- NOTE | 2020-10-31 18:47 | NUR ---
Pt. was able to eat dinner and reports pain has decreased. Pt. updated on plan of care, oncoming MICHAEL Blankenship to receive report shortly.
[2020-10-31 19:00] VITALS: BP 131/49; PULSE 65; TEMP 97.6
--- NOTE | 2020-10-31 19:04 | NUR ---
Assessment complete. Foam dressing applied to pt.'s stage II pressure sore in between buttocks. Pt. using the bed [place] to void.
--- NOTE | 2020-10-31 20:48 | NUR ---
Assessment completed, alert, oriented. patient has chronic back pain rated 4/10. Denies the need of pain meds. Denies SOB, family is at bedside during assessment. She had dialysis today. Has Dialysis fistula in her right anterior chest and LFA fistula that is not accessible this time. She have IV IandT at her right wrist. Patient has generalized brusing and dryness. No further complain. Bed alarm is on and call light is within reach. Continue to follow.
[2020-10-31 23:27] VITALS: BP 127/47; PULSE 72; TEMP 98
[2020-11-01 03:19] VITALS: BP 124/73; PULSE 69; TEMP 98.2
[2020-11-01 07:15] VITALS: BP 117/64; PULSE 72; TEMP 98.3
[2020-11-01 07:44] LABS: BASO % 0.3 % (0.0-2.0); EOS # 0.1 (0.0-0.7); EOS % 0.8 % (0-4.0); GRAN # 4.4 (1.4-6.5); GRAN % 72.4 % (42.2-75.2); LYMPH # 0.6 (1.2-3.4); LYMPH % 10.4 % (20.0-51.0); MEAN CELL VOLUME 105 fl (80.0-100.0); MEAN CORPUSCULAR HGB CONC 32 g/dl (33.0-37.0); MEAN PLATELET VOLUME 12.1 fl (7.4-10.4); MONO % 15.8 % (1.7-9.3); PLATELET COUNT 86 K/mm3 (130-400); RED BLOOD COUNT 3.23 M/mm3 (4.10-5.30); REDCELL DISTRIBUTION WIDTH-CV 14.2 % (11.5-14.5)
[2020-11-01 07:59] LABS: ALBUMIN 3.1 gm/dL (3.5-5.0); CALCIUM 8.5 mg/dL (8.4-10.2); CREATININE, serum 4.08 (0.52-1.25); PHOSPHOROUS 5.1 mg/dL (2.5-4.5); POTASSIUM 4.4 mmol/L (3.4-5.0)
[2020-11-01 08:33] LABS: HEMOGLOBIN 10.8 g/dl (12.5-16.0); MEAN CORPUSCULAR HEMOGLOBIN 33 pg (27.0-31.0)
--- NOTE | 2020-11-01 09:19 | NUR ---
Initial visit; Patient thanked Window Trimmer for looking in on her and offering prayer and God's blessings. Window Trimmer will keep Annamarie in her prayer and follow up while she is our patient.
--- NOTE | 2020-11-01 11:00 | NUR ---
Patient is going to dialysis. When she is done, they will be discontinuing the catheter. Patient did not want pain medication this am when giving her other morning medications, she said she was aching but not bad and was comfortable. Dr Tariq is changing her antibiotics. Patient stated she is having nausea when she tries to eat, offered medication for it but she stated this is not new and she does not want to try eating anymore this morning. No other changes at this time. Call light within reach.
[2020-11-01 11:19] VITALS: BP 112/42; PULSE 80; TEMP 99.5
--- NOTE | 2020-11-01 15:13 | NUR ---
PATIENT TOLERATED HD TX WITH NO FLUID REMOVAL. RIJ TUNNELED CATHETER REMOVED BY THIS NURSE, PRESSURE APPLIED FOR 10 MINS & HEMOSTATSIS ACHIEVED. DRSG CDI TO RIGHT SIDE OF CHEST. NEXT HD TX PENDING NEW DIALYSIS ACCESS PLACEMENT.
[2020-11-01 15:42] VITALS: BP 147/68; PULSE 73; TEMP 98.4
--- NOTE | 2020-11-01 15:43 | NUR ---
ironworker apprentice shop met with patient to discuss discharge plan. Patient lives at home with her in [place], [place]. Patient reports she has to have her 's help with bathing and her daughter comes over and washes her hair and uses a walker to ambulate. Patient's PCP is Dr. Morgan and uses [facility] for perscriptions. Patient reports that she just ended home health with [facility]. ironworker apprentice shop contacted Yolanda at [facility] to notify her that HH might be needed post dc. Patient is understanding of this. *Discharge plan: Home with [facility] HH*
[2020-11-01 19:19] VITALS: BP 123/43; PULSE 95; TEMP 99.9
--- NOTE | 2020-11-01 20:03 | NUR ---
RECEIVED CHANGE OF SHIFT REPORT FROM DAY SHIFT NURSE. PATIENT REPORTS SEVERE BACK PAIN AND SOME NAUSEA. ATTEMPTED TO USE BEDPAN, UNSUCCESSFUL, REPORTS PASSING SOME FLATUS, OBSERVED SCANT AMOUNT OF URINE PASSED. DENIES CHEST PAIN/SOA AT TIME OF REPORT. PERIPHERAL IV IN PLACE. ON ROOM AIR. TURNS, REPOSITIONED WITH ASSISTANCE DUE TO PAIN FROM BACK. REPORTS DECREASED APPETITE. DRSG TO RIGHT CHEST CDI, FROM DIALYSIS CATH REMOVAL.
--- NOTE | 2020-11-01 23:40 | NUR ---
PATIENT SLEEPING, DOES NOT WAKE WHEN STAFF ENTER ROOM. OBSERVED BREATHING NONLABORED AND EVEN.
[2020-11-01 23:56] VITALS: BP 120/38; PULSE 77; TEMP 98.3
--- NOTE | 2020-11-02 03:09 | NUR ---
PATIENT SLEEPS, DOES NOT WAKE WHEN STAFF ENTER ROOM ON ROUNDS. BREATHING NONLABORED AND EVEN.
[2020-11-02 03:47] VITALS: BP 111/46; PULSE 74; TEMP 98.8
--- NOTE | 2020-11-02 04:44 | NUR ---
PATIENT PLACED ON BEDPAN, VOIDED SMALL AMOUNT. REPORTED PAIN WITH REPOSITIONING ON AND OFF BEDPAN. SEE MAR FOR PAIN MED GIVEN. DENIES ANY OTHER NEEDS AT THIS TIME.
--- NOTE | 2020-11-02 07:09 | NUR ---
CHANGE OF SHIFT REPORT GIVEN TO DAY SHIFT NURSE, GILLES RODRIGUEZ.
[2020-11-02 08:31] VITALS: BP 109/40; PULSE 77; TEMP 98.2
[2020-11-02 08:41] LABS: BASO % 0.3 % (0.0-2.0); EOS # 0.1 (0.0-0.7); EOS % 0.7 % (0-4.0); GRAN # 5.1 (1.4-6.5); HEMOGLOBIN 10.5 g/dl (12.5-16.0); LYMPH % 13.6 % (20.0-51.0); MEAN CELL VOLUME 109 fl (80.0-100.0); MEAN CORPUSCULAR HEMOGLOBIN 34 pg (27.0-31.0); MEAN CORPUSCULAR HGB CONC 31 g/dl (33.0-37.0); MEAN PLATELET VOLUME 12.1 fl (7.4-10.4); MONO # 0.8 (0.1-0.6); PLATELET COUNT 104 K/mm3 (130-400); RED BLOOD COUNT 3.07 M/mm3 (4.10-5.30); REDCELL DISTRIBUTION WIDTH-CV 14.2 % (11.5-14.5)
[2020-11-02 08:45] LABS: HEMATOCRIT 33.5 % (37.0-47.0)
[2020-11-02 09:01] LABS: ALBUMIN 3.1 gm/dL (3.5-5.0); CREATININE, serum 3.58 (0.52-1.25); PHOSPHOROUS 4.2 mg/dL (2.5-4.5); POTASSIUM 4.6 mmol/L (3.4-5.0)
--- NOTE | 2020-11-02 09:28 | NUR ---
Follow-up visit; Patient thanked System Consultant for looking in on her again this morning and inquiring how she is doing. Patient having discomfort though continues to look to prayer and God's blessings for relief and healing.
[2020-11-02 12:17] VITALS: BP 119/50; PULSE 77; TEMP 98.3
[2020-11-02 16:50] VITALS: BP 105/40; PULSE 73; TEMP 98.5
--- NOTE | 2020-11-02 18:30 | NUR ---
Patient did ok today. She did not spike a temp today. She has been having more back pain. Percocet given for pain. Her nausea was a little better today. We placed a warm pack to her back. She got cleaned up a little with the DULL COAT MILL OPERATOR. No other changes at this time. Call light within reach.
--- NOTE | 2020-11-02 18:45 | NUR ---
RECEIVED CHANGE OF SHIFT REPORT FROM DAY SHIFT NURSE. FAMILY AT BEDSIDE. DENIES CHEST PAIN/SOA, ON ROOM AIR WITH PATIENT STATING SHE WILL NEED OXYGEN AT NIGHT FOR SLEEP. SALINE LOCK IN PLACE.
[2020-11-02 19:31] VITALS: BP 124/44; PULSE 74; TEMP 97.8
--- NOTE | 2020-11-02 21:00 | NUR ---
OBSERVED RIGHT WRIST IV SITE WITH SOME BRUISING/SKIN DISCOLORATION WITH NO INDURATION OR CHANGES IN SKIN TEMP TO IV OBSERVED. INT FLUSHES WITH NO PAIN OR SWELLING.
[2020-11-02 23:29] VITALS: BP 103/38; PULSE 68; TEMP 97.9
[2020-11-03] VITALS (12 sets, daily range): BP systolic 105–162; BP diastolic 27–68; PULSE 54–82; TEMP 97.4–98.7
--- NOTE | 2020-11-03 00:19 | NUR ---
PATIENT SLEEPS, DOES NOT WAKE WHEN DOOR TO ROOM BY STAFF ON ROUNDS. BREATHING NONLABORED AND EVEN.
--- NOTE | 2020-11-03 04:21 | NUR ---
REQUESTED/GIVEN PAIN MEDS FOR COMPLAINT OF BACK DISCOMFORT, SEE MAR FOR MED GIVEN. DENIES ANY OTHER NEEDS AT THIS TIME.
--- NOTE | 2020-11-03 07:09 | NUR ---
CHANGE OF SHIFT REPORT GIVEN TO DAY SHIFT NURSE, MONICA RODRIGUEZ.
[2020-11-03 07:13] LABS: BASO % 0.3 % (0.0-2.0); EOS # 0.1 (0.0-0.7); EOS % 2.1 % (0-4.0); GRAN # 4.4 (1.4-6.5); GRAN % 70.5 % (42.2-75.2); HEMOGLOBIN 10.3 g/dl (12.5-16.0); LYMPH % 16.4 % (20.0-51.0); MEAN CELL VOLUME 105 fl (80.0-100.0); MEAN CORPUSCULAR HEMOGLOBIN 33 pg (27.0-31.0); MEAN CORPUSCULAR HGB CONC 32 g/dl (33.0-37.0); MEAN PLATELET VOLUME 11.8 fl (7.4-10.4); MONO # 0.6 (0.1-0.6); MONO % 10.2 % (1.7-9.3); PLATELET COUNT 119 K/mm3 (130-400); REDCELL DISTRIBUTION WIDTH-CV 14.1 % (11.5-14.5)
[2020-11-03 07:17] LABS: ALBUMIN 3.2 gm/dL (3.5-5.0); CALCIUM 9.1 mg/dL (8.4-10.2); CREATININE, serum 5.4 (0.52-1.25); HEMATOCRIT 32.5 % (37.0-47.0); PHOSPHOROUS 4.2 mg/dL (2.5-4.5); POTASSIUM 4.5 mmol/L (3.4-5.0)
--- NOTE | 2020-11-03 09:00 | NUR ---
Patient in bed resting. Alert and oriented x 3. Assessment complete. Patient denies pain at this time. Fistula noted to SOREN. INT to right wrist. Previous HD cath site to right chest with gauze and tegaderm dressing is CDI. Patient denies further needs at this time.
--- NOTE | 2020-11-03 19:01 | NUR ---
Patient doing well throughout the day, has been up to recliner through the day. Denies pain at this time. Patient is to be NPO after midnight for procedure tomorrow. Patient denies further needs at this time. Reported off to night order selector.
[2020-11-04] VITALS (13 sets, daily range): BP systolic 120–167; BP diastolic 39–80; PULSE 49–85; TEMP 97.7–98.9
[2020-11-04 06:44] LABS: BASO % 0.5 % (0.0-2.0); EOS # 0.1 (0.0-0.7); EOS % 1.3 % (0-4.0); GRAN # 5.4 (1.4-6.5); GRAN % 69.3 % (42.2-75.2); HEMOGLOBIN 10.8 g/dl (12.5-16.0); LYMPH # 1.4 (1.2-3.4); LYMPH % 17.5 % (20.0-51.0); MEAN CELL VOLUME 104 fl (80.0-100.0); MEAN CORPUSCULAR HEMOGLOBIN 33 pg (27.0-31.0); MEAN CORPUSCULAR HGB CONC 32 g/dl (33.0-37.0); MEAN PLATELET VOLUME 11.7 fl (7.4-10.4); MONO # 0.8 (0.1-0.6); MONO % 10.6 % (1.7-9.3); PLATELET COUNT 163 K/mm3 (130-400); RED BLOOD COUNT 3.29 M/mm3 (4.10-5.30); REDCELL DISTRIBUTION WIDTH-CV 14.3 % (11.5-14.5)
[2020-11-04 06:49] LABS: HEMATOCRIT 34.1 % (37.0-47.0)
[2020-11-04 06:55] LABS: ALBUMIN 3.3 gm/dL (3.5-5.0); CALCIUM 9.6 mg/dL (8.4-10.2); CREATININE, serum 6.8 (0.52-1.25); PHOSPHOROUS 4.7 mg/dL (2.5-4.5); POTASSIUM 4.6 mmol/L (3.4-5.0)
--- NOTE | 2020-11-04 08:09 | NUR ---
SEE MERGE DOCUMENTATION FOR MEDICATION ADMINISTRATION TIMES AND INTRA/POST PROCEDURE SEDATION ASSESSMENTS. PT ALREADY RECEIVING ANTIBIOTIC THERAPY, NO ADDITIONAL DOSE NEEDED PER MD.
--- NOTE | 2020-11-04 08:30 | NUR ---
Review of eMAR shows no scheduled antibiotic doses today. notified; order for 1 gm Ancef IV now. Pt with PCN allergy. Pharmacy contacted; pt received Ancef dose yesterday without any issues. Will proceed with administration of 1 gm Ancef IV with TDC insertion.
--- NOTE | 2020-11-04 08:55 | NUR ---
Patient up from clinical lab assistant. Denies needs at this time. HD cath to right chest with gauze and tegaderm dressing; CDI. Denies needs at this time.
--- NOTE | 2020-11-04 13:15 | NUR ---
Patient to dialysis by bed.
--- NOTE | 2020-11-04 19:13 | NUR ---
Patient doing well throughout the day, pain medications given for back pain. Bed bath and linnens changed this afternoon. Denies needs at this time. Will report off to binding folder machine.
--- NOTE | 2020-11-04 21:39 | NUR ---
Pt has been ok.Pain rated 4/10. Vs are stable. Will continue to monitor.
[2020-11-05 04:27] VITALS: BP 163/52; PULSE 70; TEMP 99.1
[2020-11-05 08:00] VITALS: BP 164/75; PULSE 70; TEMP 98.4
[2020-11-05 08:19] LABS: BASO # 0.1 (0.0-0.2); BASO % 0.7 % (0.0-2.0); EOS # 0.1 (0.0-0.7); EOS % 1.7 % (0-4.0); GRAN # 4.9 (1.4-6.5); GRAN % 71.4 % (42.2-75.2); HEMOGLOBIN 10.8 g/dl (12.5-16.0); LYMPH % 14.3 % (20.0-51.0); MEAN CELL VOLUME 107 fl (80.0-100.0); MEAN CORPUSCULAR HEMOGLOBIN 33 pg (27.0-31.0); MEAN CORPUSCULAR HGB CONC 31 g/dl (33.0-37.0); MEAN PLATELET VOLUME 11.2 fl (7.4-10.4); MONO # 0.8 (0.1-0.6); MONO % 11.2 % (1.7-9.3); PLATELET COUNT 176 K/mm3 (130-400); RED BLOOD COUNT 3.23 M/mm3 (4.10-5.30); REDCELL DISTRIBUTION WIDTH-CV 14.3 % (11.5-14.5)
[2020-11-05 08:25] LABS: HEMATOCRIT 34.4 % (37.0-47.0)
[2020-11-05 08:34] LABS: ALBUMIN 3.2 gm/dL (3.5-5.0); CALCIUM 9.5 mg/dL (8.4-10.2); CREATININE, serum 4.57 (0.52-1.25); PHOSPHOROUS 3.7 mg/dL (2.5-4.5); POTASSIUM 4.9 mmol/L (3.4-5.0)
[2020-11-05 11:56] VITALS: BP 160/52; PULSE 74; TEMP 98.1
[2020-11-05 15:48] VITALS: BP 153/51; PULSE 78; TEMP 98.3
--- NOTE | 2020-11-05 16:35 | NUR ---
DANNI recieved call from the patients daughter who stated that the patient called her and told her that the doctor stated that Medicare is running out and she needed to go to a senior care. Daughter was educated that this is not how we operate and that services may been in question however SW can not release any information to DTR without a JAYMIE or DPOA with her name on it. Educated patient on how a SNF may be chosen or suggested and the rights of patients in general. notified house of this accusation to ensure harm reduction as appropriate. Nothing further.
--- NOTE | 2020-11-05 18:59 | NUR ---
Patient doing well throughout the day, has been up to BSC with x 2 assist. Pain medications given for back pain. Bed bath and linens changed. Patient denies needs at this time. Will report off to door paneler.
[2020-11-05 20:29] VITALS: BP 187/59; PULSE 83
--- NOTE | 2020-11-05 21:32 | NUR ---
Pt has ok. Pain rated 5/10 but refused pain meds.Will continue to monitor.
[2020-11-05 23:23] VITALS: BP 173/53; PULSE 77; TEMP 98.2
[2020-11-06 02:33] VITALS: BP 120/45; PULSE 70; TEMP 97.7
[2020-11-06 07:27] VITALS: BP 153/52; PULSE 77; TEMP 97.6
[2020-11-06 12:00] VITALS: BP 154/70; PULSE 82; TEMP 97.7
[2020-11-06 16:00] VITALS: BP 150/45; PULSE 75; TEMP 98.2
--- NOTE | 2020-11-06 18:30 | NUR ---
Patient did well today. Continues to have back pain but did not want to take narcotics due to constipation. No complaints of nausea. PRN laxatives given. Offered her a suppository but she wanted to wait until she's back in bed. She has no appetite. She is still barely moving, she can not take more than a few steps from the commode to the chair. She does better with the walker than pivot transfer. No other changes at this time. Call light within reach. at bedside. Patient is sitting up in the chair finishing dinner.
[2020-11-06 19:50] VITALS: BP 192/64; PULSE 92; TEMP 98.1
--- NOTE | 2020-11-06 20:00 | NUR ---
PATIENT IS SITTING ON THE CHAIR WATCHING TV.REPORTS OF CONSTIPATION REQUESTS FOR DULCOLAX SUPPOSITORY SAME GIVEN.REPORTS OF BACK PAIN PATIENT HAS A K PAD.BLOOD GLUCOSE 165.SAFETY MEASURES IN PLACE. NO OTHER NEEDS AT THIS TIME.
[2020-11-06 21:30] VITALS: BP 119/43
[2020-11-07] VITALS (7 sets, daily range): BP systolic 110–163; BP diastolic 45–90; PULSE 52–70; TEMP 97.8–98.3
--- NOTE | 2020-11-07 05:48 | NUR ---
PATIENT HAD A RESTFUL NIGHT.PATIENT O2 DIPS WHEN SLEEPING TO HIGH 70S.OXYGEN THERAPY COMMENCED VIA NC AT 2L.O2 NOW AT 97%.PATIENT HAD A BOWEL MOVEMENT AT NIGHT.BLACK HARD STOOL MEDIUM IN SIZE.SAFETY MEASURES IN PLACE.PATIENT DENIES PAIN.NO OTHER NEEDS AT HIS TIME.
[2020-11-07 09:11] LABS: MEAN CORPUSCULAR HEMOGLOBIN 33 pg (27.0-31.0); MEAN CORPUSCULAR HGB CONC 33 g/dl (33.0-37.0); PLATELET COUNT 198 K/mm3 (130-400); RED BLOOD COUNT 3.03 M/mm3 (4.10-5.30)
[2020-11-07 09:16] LABS: ALBUMIN 2.9 gm/dL (3.5-5.0); CALCIUM 9.6 mg/dL (8.4-10.2); CREATININE, serum 6.75 (0.52-1.25); PHOSPHOROUS 4.4 mg/dL (2.5-4.5); POTASSIUM 4.7 mmol/L (3.4-5.0)
[2020-11-07 09:17] LABS: HEMATOCRIT 30.2 % (37.0-47.0)
[2020-11-07 09:18] LABS: MEAN CELL VOLUME 100 fl (80.0-100.0)
[2020-11-07 09:38] LABS: BAND 2 % (0-10); EOSINOPHIL 1 % (0-4); LYMPHOCYTE 6 % (20.0-51.0); NEUTROPHILS 82 % (42.0-75.2); PLATELET ESTIMATE NORMAL (NORMAL)
--- NOTE | 2020-11-07 10:50 | NUR ---
coke worker met with patient to discuss PT/OT rec's for SNF along with the physican recommendation for SNF. Referrals faxed to [facility] and [facility]. Awaiting to hear back. Patient would like [facility] first because she has been doing her HH with them and [facility] second. Worker attempted to contact . No answer. *Discharge plan: SNF*
--- NOTE | 2020-11-07 11:41 | NUR ---
PATIENT TOLERATED HD TX WITH 900 ML FLUID REMOVAL TODAY. PATIENT STATED "I FEEL LIKE I'M AT THE END OF MY LIFE." IN THE LAST [address] ALBERTO AWARE & ORDERED TELEMETRY MONITORING. PATIENT'S VSS DURING & AFTER HD TX.
--- NOTE | 2020-11-07 12:34 | NUR ---
Dilia at [facility] expresses concerns surrounding dialysis transfers and requests updated therapy notes. Clinical documentation faxed over. warehouse insulation worker consulted with Dr. Alexadner about his staff helping transfer the patient when she receives her dialysis. Dr. Alexander confirms that his staff can assist as long as the patient is weight bearing but cannot assist if the patient was a total lift. Worker contacted [facility] with information. [facility] at [facility] inquires about dialysis say's and if the patient could be switched. Dr. Alexander's staff is looking into this.
--- NOTE | 2020-11-07 21:00 | NUR ---
PATIENT IS CALM IN BED.DENIES PAIN.PATIENT HAS DIMINISHED URINE OUTPUT.BLOOD GLUCOSE 101.SAFETY MEASURES IN PLACE.NO OTHER NEEDS AT THIS TIME.
[2020-11-08 03:23] VITALS: BP 164/43; PULSE 74; TEMP 98.1
--- NOTE | 2020-11-08 05:44 | NUR ---
PATIENT HAD UNEVENTFUL NIGHT.DENIES PAIN.SAFETY MEASURES IN PLACE.NO OTHER NEEDS AT THIS TIME.
--- NOTE | 2020-11-08 06:30 | NUR ---
Report received from MICHAEL German. Patient is resting in bed. Call light and bedside table are within reach. Will continue to monitor patient throughout shift.
[2020-11-08 07:20] VITALS: BP 147/63; PULSE 71; TEMP 97.9
--- NOTE | 2020-11-08 09:27 | NUR ---
Dilia from [facility] contacted worker that they cannot accept the patient. [facility] at [facility] can accept, but her dialysis time is a conflict for them. Tristan contacted and referral paperwork faxed over. Notified patient and patients daughter Muna [phone].
--- NOTE | 2020-11-08 11:11 | NUR ---
Tristan contacted this social worker aide to let her know that they cannot accept this patient and that their sister facility [facility] cannot accept the patient either due to capacity issues. [facility] with [facility] contacted about the patient/family doing private transports to dialysis treatments during the times [facility] could not provide. Facility is against this idea. Ideas of switching the patients chair time with dislysis proved unsuccessful. Patient notifed that are options are to go home with support from her family and . Patient is already established with [facility] and Yolanda was contacted. Daughter contacted with updates. Daughter agrees with plan and is supportive of the patient coming home with HH. *Discharge Plan: Home with HH*
[2020-11-08 11:59] VITALS: BP 136/31; PULSE 68; TEMP 98.6
--- NOTE | 2020-11-08 15:06 | NUR ---
D/C orders faxed to Yolanda at [facility].
--- NOTE | 2020-11-08 17:20 | NUR ---
casting house worker received phone call from the patients daughter Muna stating that the patient does not feel like she is strong enough to come home. casting house worker reiterated to the patient's daughter that Dr. Alexander has met with the patient and his clinical evidence indicates that she is well enough to go home with the support of home health. This social media marketing manager and social media marketing manager Angela Villaseñor met with the patient to educate her that Dr. Alexander has written orders for her to be discharged with the support of home health. Patient expresses that she is fearful of falling at home. Encouragement was given to the patient that she has worked with physical therapy, was walking with them, that she has a home health agency set up to come into the home to continue therapy in addition to a supportative family system. Patient verbalizes understanding of this. Patient expresses concerns with dialysis treatment set for tomorrow and that her chair time was not changed. This social media marketing manager educated her on the efforts made by hospital staff in addition to 's staff to change her time, but unforunately could not make that happen. casting house worker states that home with home health is our only option with the orders that the doctor has written. Patient agrees. , Stef, contacted by this social media marketing manager to discuss discharge. expresses his concerns with the patient falling at home stating casting house worker educated the that the patient has been up walking with physical therapy on more then one occasion today. states "but if she falls i can't help her up". casting house worker educated him that [facility] is set to come back into the home to continue working on her physical therapy and that her PCP, Dr. Morgan needs to be caring for her physical health. agrees to picking the patient up for discharge. Nursing staff and tank house operator notified.
--- NOTE | 2020-11-08 18:00 | NUR ---
Patient health summary, discharge summary and home meds printed and reviewed with patient. Stressed importance of upcoming appointments. Belongings gathered by SHLOMO Dubois. Patient transported via by SHLOMO Dubois and seatbelted for ride home. Patient denied questions.
== END 2020-11-08 18:00 | disposition home or self-care (01) | DRG 314 ==
LOC: COL.ER 06:02 → SURG 08:27
PROVIDERS: Personal Emergency Response Attendant; ADMIT Internal Medicine Nephrology
PROC: 0JH63XZ Insertion of Tunneled Vascular Access Device into Chest Subcutaneous Tissue and Fascia, Percutaneous Approach (ICD-10-PCS; principal; 2020-11-04)
PROC: 02HV33Z Insertion of Infusion Device into Superior Vena Cava, Percutaneous Approach (ICD-10-PCS; 2020-11-04)
PROC: 02PYX3Z Removal of Infusion Device from Great Vessel, External Approach (ICD-10-PCS; 2020-11-04)
PROC: 5A1D70Z Performance of Urinary Filtration, Intermittent, Less than 6 Hours Per Day (ICD-10-PCS; 2020-11-06)
DX: T80.211A Bloodstream infection due to central venous catheter, initial encounter (principal); N18.6 End stage renal disease; R65.11 Systemic inflammatory response syndrome (SIRS) of non-infectious origin with acute organ dysfunction; I12.0 Hypertensive chronic kidney disease with stage 5 chronic kidney disease or end stage renal disease; D63.1 Anemia in chronic kidney disease; E11.22 Type 2 diabetes mellitus with diabetic chronic kidney disease; E78.5 Hyperlipidemia, unspecified; E66.01 Morbid (severe) obesity due to excess calories; M48.00 Spinal stenosis, site unspecified
CPT/HCPCS: OP; G0378; J0690; J0696; J1644; J1815; J2250; J2270; J2405; J3010; J7030; J7040; Q5105

== ENCOUNTER → 2021-03-24 | Outpatient (CLI) | payer MEDICARE, BC | LOC: MC.RAD 10:34 | DX: Z12.31 Encounter for screening mammogram for malignant neoplasm of breast (principal) ==

== ENCOUNTER 2022-04-12 10:46 | Outpatient (CLI) | payer MEDICARE, BC ==
[2005-08-27 12:18] VITALS: BP 148/78
[2022-04-12] VITALS (8 sets, daily range): BP systolic 138–175; BP diastolic 68–95; PULSE 73–89; TEMP 98.1
[~2022-04-12] VITALS: Ht 162.6 cm; Wt 101.8 kg
[2022-04-12] MEDS ORDERED: COZAAR100 MG PO (11:35)
[2022-04-12] MEDS ORDERED: BASAGLAR K100 UNIT/1 SQ (11:37)
[2022-04-12] MEDS ORDERED: TYLENOL 325MG325 MG PO (11:38)
[2022-04-12] MEDS ORDERED: NATURAL E400 IU PO (11:39)
[2022-04-12] MEDS ORDERED: AURYXIA1 GM PO (11:40)
--- NOTE | 2022-04-12 12:07 | NUR ---
SSEE MERGE FOR ALL MEDICATIONS ADMIN, INTERVENTIONS AND VITALS.
--- NOTE | 2022-04-12 12:10 | NUR ---
Pt returned from procedure. Bandaid over fistula site is clean, dry and intact. Thrill palpable. Pt is free of complaints. at bedside. Dr Smith in to speak with pt and . He states Dr Tariq' office will contact pt to make plan for next dialysis. He states if they want her today, she does not need to stay full 2 hr recovery period if she is doing well. Pt denies needs at this time. Call light in reach.
--- NOTE | 2022-04-12 14:30 | NUR ---
Awaiting arrival of meal tray. Pt states dialysis unit wants her to go there for HD treatment after she is discharged. Pt will eat meal tray then be discharged. She continues to deny needs or issues. at bedside.
--- NOTE | 2022-04-12 15:25 | NUR ---
Pt was assisted to sit on bedside to dress, then assisted to wheelchair by . Bandaid over left fistula site remains clean, dry and intact. She is alert, free of complaints. She ate meal tray. She will report to diaysis center after leaving hospital. DC instructions reviewed with pt and , both express understanding. She and are escorted out to hospital entrance with belongings.
== END 2022-04-12 14:52 | disposition home or self-care (01) ==
LOC: COL.CAR 10:46
DX: T82.858A Stenosis of other vascular prosthetic devices, implants and grafts, initial encounter (principal); Y83.2 Surgical operation with anastomosis, bypass or graft as the cause of abnormal reaction of the patient, or of later complication, without mention of misadventure at the time of the procedure; N18.9 Chronic kidney disease, unspecified
CPT/HCPCS: J1644; J2250; J3010; Q9967

== ENCOUNTER → 2022-07-18 | Outpatient (CLI) | payer MEDICARE, BC ==
[~2022-07-18] MED LIST changes: +NATURAL E400 IU PO; +TYLENOL 325MG325 MG PO
== END ==
LOC: MC.RAD 05-23 14:30
DX: Z12.31 Encounter for screening mammogram for malignant neoplasm of breast (principal)

== ENCOUNTER 2023-01-08 03:49 | Inpatient (IN) | payer MEDICARE, BC ==
[~2023-01-08] VITALS: Ht 162.6 cm; Wt 100.0 kg
[2023-01-08] VITALS (8 sets, daily range): BP systolic 118–138; BP diastolic 40–66; PULSE 81–102; TEMP 97.6–97.8
[~2023-01-08 03:49] MED LIST changes: -IMDUR 60MG60 MG/TAB PO; -MASON NATURAL2000 IU PO; +VITAMIN D31000 I1 PO
[2023-01-08 05:24] LABS: BASO # 0.1 K/mm3 (0.0-0.2); BASO % 0.8 % (0.0-2.0); EOS # 0.1 K/mm3 (0.0-0.7); EOS % 1.9 % (0.0-4.0); GRAN # 5.6 K/mm3 (1.4-6.5); LYMPH # 0.9 K/mm3 (1.2-3.4); LYMPH % 12.4 % (20.0-51.0); MEAN CELL VOLUME 105 fl (80.0-100.0); MEAN CORPUSCULAR HGB CONC 32 g/dl (33.0-37.0); MEAN PLATELET VOLUME 10.9 fl (7.4-10.4); MONO # 0.7 K/mm3 (0.1-0.6); MONO % 9.4 % (1.7-9.3); PLATELET COUNT 154 K/mm3 (130-400); RED BLOOD COUNT 2.85 M/mm3 (4.10-5.30); REDCELL DISTRIBUTION WIDTH-CV 12.7 % (11.5-14.5)
[2023-01-08 05:26] LABS: HEMOGLOBIN 9.6 g/dl (12.5-16.0); MEAN CORPUSCULAR HEMOGLOBIN 34 pg (27-31)
[2023-01-08 05:33] LABS: ALBUMIN 3.1 gm/dL (3.4-4.8); BILIRUBIN,TOTAL 0.5 mg/dL (0.2-1.2); CREATININE, serum 10.4 mg/dL (0.57-1.11); POTASSIUM 4.5 mmol/L (3.5-4.5); TOTAL PROTEIN 6.1 gm/dL (6.2-8.1)
[2023-01-08 08:07] LABS: HEMATOCRIT 28.8 % (37.0-47.0); HEMOGLOBIN 9.6 g/dl (12.5-16.0)
[2023-01-08 09:49] LABS: INR 1.1 (0.8-3.0); PROTHROMBIN TIME 12.4 SECONDS (9.7-12.8)
[2023-01-08] MEDS ORDERED: RENA-VITE1 TAB PO (10:20)
[2023-01-08] MEDS ORDERED: LEVEMIR SQ (10:20)
[2023-01-08] MEDS ORDERED: GENTLE LAXATIVE5 MG PO (10:23)
[2023-01-08] MEDS ORDERED: DULCOLAX STOOL100 MG PO (10:24)
[2023-01-08] MEDS ORDERED: PROAMATINE 5MG T5 MG PO (10:32)
[2023-01-08 12:05] LABS: HEMATOCRIT 29.7 % (37.0-47.0); HEMOGLOBIN 9.4 g/dl (12.5-16.0)
[2023-01-08 15:40] LABS: HEMATOCRIT 25.7 % (37.0-47.0); HEMOGLOBIN 8.7 g/dl (12.5-16.0)
[2023-01-08 19:40] LABS: HEMATOCRIT 27.2 % (37.0-47.0); HEMOGLOBIN 9.1 g/dl (12.5-16.0)
[2023-01-08 21:55] LABS: HEPATITIS B SURFACE ANTIGEN Negative (Negative); HEPATITIS C VIRUS ANTIBODY Negative (Negative)
[2023-01-08 23:41] LABS: HEMATOCRIT 26.4 % (37.0-47.0); HEMOGLOBIN 8.8 g/dl (12.5-16.0)
[2023-01-09] VITALS (18 sets, daily range): BP systolic 99–135; BP diastolic 40–71; PULSE 66–95; TEMP 96.3–98.3
[2023-01-09 05:32] LABS: BASO # 0.1 K/mm3 (0.0-0.2); BASO % 0.8 % (0.0-2.0); EOS # 0.1 K/mm3 (0.0-0.7); GRAN # 5.9 K/mm3 (1.4-6.5); GRAN % 75.5 % (42.2-75.2); LYMPH % 13.1 % (20.0-51.0); MEAN CELL VOLUME 103 fl (80.0-100.0); MEAN CORPUSCULAR HGB CONC 34 g/dl (33.0-37.0); MEAN PLATELET VOLUME 10.7 fl (7.4-10.4); MONO # 0.7 K/mm3 (0.1-0.6); MONO % 9.1 % (1.7-9.3); PLATELET COUNT 143 K/mm3 (130-400); RED BLOOD COUNT 2.46 M/mm3 (4.10-5.30); REDCELL DISTRIBUTION WIDTH-CV 12.8 % (11.5-14.5)
[2023-01-09 05:34] LABS: HEMATOCRIT 25.4 % (37.0-47.0); HEMOGLOBIN 8.6 g/dl (12.5-16.0); MEAN CORPUSCULAR HEMOGLOBIN 35 pg (27-31)
[2023-01-09 05:42] LABS: CREATININE, serum 6.73 mg/dL (0.57-1.11); POTASSIUM 4.2 mmol/L (3.5-4.5)
[2023-01-10] VITALS (12 sets, daily range): BP systolic 96–130; BP diastolic 33–47; PULSE 74–88; TEMP 97.7–98.6
[2023-01-10 08:33] LABS: MEAN CELL VOLUME 104 fl (80.0-100.0); MEAN CORPUSCULAR HGB CONC 33 g/dl (33.0-37.0); MEAN PLATELET VOLUME 11.2 fl (7.4-10.4); PLATELET COUNT 121 K/mm3 (130-400); RED BLOOD COUNT 2.14 M/mm3 (4.10-5.30)
[2023-01-10 08:38] LABS: HEMATOCRIT 22.3 % (37.0-47.0); HEMOGLOBIN 7.4 g/dl (12.5-16.0); MEAN CORPUSCULAR HEMOGLOBIN 35 pg (27-31)
[2023-01-10 08:45] LABS: CALCIUM 8.4 mg/dL (8.4-10.2); CREATININE, serum 6.3 mg/dL (0.57-1.11); POTASSIUM 3.9 mmol/L (3.5-4.5)
[2023-01-10 09:02] LABS: BAND 5 % (0-10); BASOPHIL 2 % (0-2); EOSINOPHIL 5 % (0-4); METAMYELOCYTE 1 % (0-0); NEUTROPHILS 58 % (42.0-75.2); PLATELET ESTIMATE DECREASED (NORMAL)
[2023-01-10 09:04] LABS: LYMPHOCYTE 23 % (20.0-51.0)
[2023-01-11 03:42] VITALS: BP 113/43; PULSE 75; TEMP 97.9
[2023-01-11 04:24] VITALS: BP_SYST 113
[2023-01-11 07:04] VITALS: BP 147/49; PULSE 78; TEMP 98.1
[2023-01-11 08:22] LABS: BASO % 0.5 % (0.0-2.0); EOS # 0.2 K/mm3 (0.0-0.7); EOS % 2.6 % (0.0-4.0); GRAN # 5.2 K/mm3 (1.4-6.5); GRAN % 67.7 % (42.2-75.2); LYMPH # 1.5 K/mm3 (1.2-3.4); LYMPH % 19.6 % (20.0-51.0); MEAN CELL VOLUME 106 fl (80.0-100.0); MEAN CORPUSCULAR HGB CONC 33 g/dl (33.0-37.0); MEAN PLATELET VOLUME 11.8 fl (7.4-10.4); MONO # 0.7 K/mm3 (0.1-0.6); MONO % 8.9 % (1.7-9.3); PLATELET COUNT 119 K/mm3 (130-400); RED BLOOD COUNT 2.18 M/mm3 (4.10-5.30); REDCELL DISTRIBUTION WIDTH-CV 13.1 % (11.5-14.5)
[2023-01-11 08:24] LABS: HEMOGLOBIN 7.6 g/dl (12.5-16.0); MEAN CORPUSCULAR HEMOGLOBIN 35 pg (27-31)
[2023-01-11 08:33] VITALS: BP_SYST 147
[2023-01-11 08:36] LABS: CALCIUM 8.6 mg/dL (8.4-10.2); CREATININE, serum 5.84 mg/dL (0.57-1.11); POTASSIUM 4.2 mmol/L (3.5-4.5)
[2023-01-11] MEDS ORDERED: LEADER CLE17 GM/Dose PO (10:04)
[2023-01-11] MEDS ORDERED: PROTONIX 40MG T40 MG PO (10:05)
[2023-01-11] MEDS ORDERED: CARAFATE S1 GM/10 ML PO (10:05)
[2023-01-11] MEDS ORDERED: CANASA 1000MG1000 MG RC (10:06)
[2023-01-11] MEDS ORDERED: SENOKOT S 50 MG1 TAB PO (10:26)
[2023-01-11] MEDS ORDERED: DULCOLAX TAB5 MG PO ×2 (10:27)
[2023-01-11] MEDS ORDERED: DULCOLAX S10 MG/SUPP RC (10:28)
[2023-01-11 11:00] VITALS: BP 128/46; PULSE 86; TEMP 98.1
[2023-01-11 12:17] VITALS: BP_SYST 128
[2023-01-15] MEDS ORDERED: FERRO-TIME325 MG PO (08:52)
[2023-01-15] MEDS ORDERED: LEADER CLE17 GM/Dose PO (08:53)
[2023-01-15] MEDS ORDERED: DULCOLAX TAB5 MG PO (08:53)
== END 2023-01-11 13:20 | DRG 393 ==
LOC: COL.ER 03:49 → MEDICAL 06:12
PROVIDERS: Internal Medicine Gastroenterology; Internal Medicine Nephrology; Personal Emergency Response Attendant; ADMIT Internal Medicine
PROC: 5A1D70Z Performance of Urinary Filtration, Intermittent, Less than 6 Hours Per Day (ICD-10-PCS; 2023-01-08)
PROC: 0DBP8ZX Excision of Rectum, Via Natural or Artificial Opening Endoscopic, Diagnostic (ICD-10-PCS; principal; 2023-01-09 07:30)
PROC: 0DB68ZX Excision of Stomach, Via Natural or Artificial Opening Endoscopic, Diagnostic (ICD-10-PCS; 2023-01-09 07:30)
DX: K62.6 Ulcer of anus and rectum (principal); N18.6 End stage renal disease; D62 Acute posthemorrhagic anemia; I13.2 Hypertensive heart and chronic kidney disease with heart failure and with stage 5 chronic kidney disease, or end stage renal disease; I50.32 Chronic diastolic (congestive) heart failure; K25.9 Gastric ulcer, unspecified as acute or chronic, without hemorrhage or perforation; Z66 Do not resuscitate; I25.10 Atherosclerotic heart disease of native coronary artery without angina pectoris; I48.91 Unspecified atrial fibrillation; E11.22 Type 2 diabetes mellitus with diabetic chronic kidney disease; E78.5 Hyperlipidemia, unspecified; G47.33 Obstructive sleep apnea (adult) (pediatric); K26.9 Duodenal ulcer, unspecified as acute or chronic, without hemorrhage or perforation; T39.015A Adverse effect of aspirin, initial encounter; E03.9 Hypothyroidism, unspecified; K57.30 Diverticulosis of large intestine without perforation or abscess without bleeding; E11.40 Type 2 diabetes mellitus with diabetic neuropathy, unspecified; G47.00 Insomnia, unspecified; E66.01 Morbid (severe) obesity due to excess calories; K59.09 Other constipation; K64.0 First degree hemorrhoids; K29.60 Other gastritis without bleeding; E11.649 Type 2 diabetes mellitus with hypoglycemia without coma; Z99.2 Dependence on renal dialysis; Z79.890 Hormone replacement therapy; Z88.6 Allergy status to analgesic agent; Z88.1 Allergy status to other antibiotic agents; Z88.0 Allergy status to penicillin; Z88.8 Allergy status to other drugs, medicaments and biological substances; Z95.4 Presence of other heart-valve replacement; Z95.5 Presence of coronary angioplasty implant and graft; Z90.710 Acquired absence of both cervix and uterus; Z95.1 Presence of aortocoronary bypass graft; Z79.02 Long term (current) use of antithrombotics/antiplatelets; Z79.4 Long term (current) use of insulin; Z79.899 Other long term (current) drug therapy; Z79.82 Long term (current) use of aspirin; Z23 Encounter for immunization; Z68.37 Body mass index [BMI] 37.0-37.9, adult
CPT/HCPCS: J1815; J2405; J2704; J2765; J3480; Q3014

== ENCOUNTER 2023-03-15 11:53 | Emergency (ER) | payer MEDICARE, BC ==
[~2023-03-15] VITALS: Ht 162.6 cm; Wt 95.0 kg
[~2023-03-15 11:53] MED LIST changes: +ASPIRIN 81M81 MG/TA2 PO; +ATIVAN 0.50.5 MG/TAB PO; +CANASA 1000MG1000 MG RC; +CARAFATE S1 GM/10 ML PO; +COLACE 100100 MG/CAP PO; +DULCOLAX S10 MG/SUPP RC; +DULCOLAX STOOL100 MG PO; +DULCOLAX TAB5 MG PO; +FERRO-TIME325 MG PO; +GENTLE LAXATIVE5 MG PO; +IPRATROPIUM BROM3 M1 IH; +LEADER CLE17 GM/Dose PO; +LEVEMIR SQ; +NITROSTAT0.4 MG/TAB SL; +NYSTATIN OR100 MU/ML TP; +PACERONE400 MG PO; +PROAMATINE 5MG T5 MG PO; +PROTONIX 40MG T40 MG PO; +RENA-VITE1 TAB PO; +SENNA-S 50 MG-81 TAB PO; +SENOKOT S 50 MG1 TAB PO; +VENTOLIN0.09 MG INH
[2023-03-15 11:55] VITALS: TEMP 98.1
[2023-03-15 12:44] LABS: BASO % 0.3 % (0.0-2.0); EOS % 0.9 % (0.0-4.0); GRAN # 2.1 K/mm3 (1.4-6.5); GRAN % 65.5 % (42.2-75.2); LYMPH # 0.6 K/mm3 (1.2-3.4); LYMPH % 17.1 % (20.0-51.0); MEAN CELL VOLUME 102 fl (80.0-100.0); MEAN CORPUSCULAR HGB CONC 34 g/dl (33.0-37.0); MEAN PLATELET VOLUME 12.5 fl (7.4-10.4); MONO # 0.5 K/mm3 (0.1-0.6); MONO % 15.9 % (1.7-9.3); PLATELET COUNT 77 K/mm3 (130-400); RED BLOOD COUNT 2.89 M/mm3 (4.10-5.30); REDCELL DISTRIBUTION WIDTH-CV 14.9 % (11.5-14.5)
[2023-03-15 12:59] LABS: ALBUMIN 3.3 gm/dL (3.4-4.8); BILIRUBIN,TOTAL 0.4 mg/dL (0.2-1.2); CALCIUM 9.5 mg/dL (8.4-10.2); CREATININE, serum 3.33 mg/dL (0.57-1.11); POTASSIUM 4.6 mmol/L (3.5-4.5); TOTAL PROTEIN 6.6 gm/dL (6.2-8.1)
[2023-03-15 13:01] LABS: HEMATOCRIT 29.5 % (37.0-47.0); HEMOGLOBIN 9.9 g/dl (12.5-16.0); MEAN CORPUSCULAR HEMOGLOBIN 34 pg (27-31)
[2023-03-15 16:01] VITALS: BP 113/60; PULSE 71
== END 2023-03-15 16:52 | disposition home or self-care (01) ==
LOC: COL.ER 11:53
PROVIDERS: Physician Assistant
DX: U07.1 COVID-19 (principal); R06.02 Shortness of breath; R07.9 Chest pain, unspecified; R05.9 Cough, unspecified; I48.91 Unspecified atrial fibrillation; I25.10 Atherosclerotic heart disease of native coronary artery without angina pectoris; E11.22 Type 2 diabetes mellitus with diabetic chronic kidney disease; N18.6 End stage renal disease; I50.30 Unspecified diastolic (congestive) heart failure; Z99.2 Dependence on renal dialysis; Z79.4 Long term (current) use of insulin; Z79.82 Long term (current) use of aspirin; Z79.02 Long term (current) use of antithrombotics/antiplatelets

== ENCOUNTER 2023-03-24 20:13 | Inpatient (IN) | payer MEDICARE, BC ==
[~2023-03-24] VITALS: Ht 162.6 cm; Wt 98.8 kg
[~2023-03-24 20:13] MED LIST changes: +MIRALAX PA17 GM/Dose PO
[2023-03-24 20:41] LABS: BASO % 0.2 % (0.0-2.0); EOS % 0.8 % (0.0-4.0); GRAN # 3.8 K/mm3 (1.4-6.5); GRAN % 78.8 % (42.2-75.2); LYMPH # 0.5 K/mm3 (1.2-3.4); LYMPH % 10.5 % (20.0-51.0); MEAN CELL VOLUME 105 fl (80.0-100.0); MEAN CORPUSCULAR HGB CONC 32 g/dl (33.0-37.0); MEAN PLATELET VOLUME 12.6 fl (7.4-10.4); MONO # 0.5 K/mm3 (0.1-0.6); MONO % 9.3 % (1.7-9.3); PLATELET COUNT 92 K/mm3 (130-400); RED BLOOD COUNT 2.62 M/mm3 (4.10-5.30); REDCELL DISTRIBUTION WIDTH-CV 15.1 % (11.5-14.5)
[2023-03-24 20:45] LABS: INR 1.1 (0.8-3.0); PROTHROMBIN TIME 11.5 SECONDS (9.7-12.8)
[2023-03-24 20:54] LABS: ALBUMIN 3.4 gm/dL (3.4-4.8); BILIRUBIN,TOTAL 0.5 mg/dL (0.2-1.2); CALCIUM 9.6 mg/dL (8.4-10.2); CREATININE, serum 7.47 mg/dL (0.57-1.11); POTASSIUM 5.3 mmol/L (3.5-4.5); TOTAL PROTEIN 6.7 gm/dL (6.2-8.1)
[2023-03-24 21:02] LABS: TROPONIN-I 0.057 ng/mL (0.00-0.033)
[2023-03-24 21:07] LABS: HEMATOCRIT 27.6 % (37.0-47.0); HEMOGLOBIN 8.9 g/dl (12.5-16.0); MEAN CORPUSCULAR HEMOGLOBIN 34 pg (27-31)
[2023-03-24] MEDS ORDERED: Sodium Zirconium Cyclosilicate for Oral Susp 10 GM PACKET PO ONE (21:15)
[2023-03-24] MEDS ORDERED: TYLENOL 500MG500 MG PO (21:51)
[2023-03-24] MEDS ORDERED: TESSALON P100 MG/CAP PO (21:52)
[2023-03-24] MEDS ORDERED: NYAMYC100000 U/G TP (21:55)
[2023-03-24] MEDS ORDERED: SENNA-S 50 MG-81 TAB PO (21:56)
[2023-03-24] MEDS ORDERED: NATURAL E400 IU PO (21:58)
[2023-03-24] MEDS ORDERED: Acetaminophen 325 MG TAB PO PRN (22:15)
[2023-03-24] MEDS ORDERED: Albuterol/Ipratropium 3 MG-0.5 MG/3 ML Neb Soln IH PRN (22:15)
[2023-03-24] MEDS ORDERED: Mag/Al Hydrox/Simeth Susp 30 ML CUP PO PRN (22:15)
[2023-03-24] MEDS ORDERED: Ondansetron 4 MG/2 ML VIAL IV PRN (22:15)
[2023-03-24] MEDS ORDERED: Glucagon 1 MG VIAL IM PRN (23:00)
[2023-03-24] MEDS ORDERED: Dextrose 50% Water 25 GM/50 ML SYRINGE IV PRN (23:00)
[2023-03-24] MEDS ORDERED: Dextrose (Glucose) 15 GM (4 x 3.75 GM) Chewable TABLET PACK PO PRN (23:00)
[2023-03-24 23:05] VITALS: BP 176/47; PULSE 81; TEMP 98.4
[2023-03-24 23:14] VITALS: BP_SYST 176
[2023-03-24] MEDS ORDERED: PACERONE400 MG PO (23:47)
[2023-03-25] VITALS (13 sets, daily range): BP systolic 113–176; BP diastolic 41–82; PULSE 69–79; TEMP 97.9–98.3
--- NOTE | 2023-03-25 00:28 | NUR ---
Received report from ER nurse at 2205. Patient arrived to unit at 2255. Alert and oriented, and able to make needs known. Patient has as history of MRSA. Order received for MRSA swab, obtained and sent to lab. Contact isoloation precautions initiated. Denies having pain and discomfort. Peripheral INT to right AC. AV fistula to LUE. Restricted extremity band placed, and sign placed on door. Denies SOB while in bed with HOB elevated, but does have SOB with laying down and with exertion. On oxygen at 2 L/min via NC. LS coarse crackles throughout. Has moist cough, but unable to visualize sputum. Reports sputum is thin, and pale yellow. HRR. Telemetry in place. BSAx4. 3+ edema to BLE. Redness/warmth to BLE. CLEMENTINA wraps removed. Has skin tear to left hernandez, reports from hitting leg on wheelchair. Has scab by left 2nd toe. Skin dry. Has bruising/scabs all over. Bottom is very red, and has excorition from pull up. Took pull up off and explained to patient and her daughter that we would leave it off, and voiced understanding. In bed with call light within reach. High fall risk precautions in place. Bed alarm on.
--- NOTE | 2023-03-25 06:36 | NUR ---
Patient continues on oxygen at 2 L/min via NC. Continues to have cough that causes increased SOB. RT gave nebulizer treatment. Denies wanting to take morning medications at this time due to patient having coughing spells. Reports that she had called out for assistance due to SOB during coughing spell but no one had came to room to check on her. This nurse appologized to patient. No one had told this nurse that patient had called for assistance. Encouraged that if that was to happen again to continue to call for assistance until someone came to room, and voiced understanding. Voices no further questions, needs, or concerns at this time. In bed with call light within reach. High fall risk precautions in place. Bed alarm on.
[2023-03-25] MEDS ORDERED: Isosorbide Mononitrate CR (24-HR) 30 MG TAB PO SCH (07:00)
--- NOTE | 2023-03-25 07:47 | NUR ---
SPO2 ON 2 LPM 97%, HR 65, COUGHING UP SMALL AMOUNT YELLOW SPUTOM. BS DIMINISHED. MANJEET MP TX WELL.
[2023-03-25] MEDS ORDERED: Patient's Own Medication Item PO SCH (08:00)
[2023-03-25] MEDS ORDERED: Insulin Aspart (NovoLOG) SQ SCH (08:00)
[2023-03-25] MEDS ORDERED: Nystatin 100,000 Units/GM Ointment 15 GM TUBE TP SCH (09:00)
[2023-03-25] MEDS ORDERED: Heparin 5,000 UNITS/ML 1 ML VIAL SQ SCH (09:00)
[2023-03-25] MEDS ORDERED: Amiodarone 200 MG TAB PO SCH (09:00)
[2023-03-25] MEDS ORDERED: Sennosides/Docusate 8.6-50 MG TAB PO SCH (09:00)
[2023-03-25] MEDS ORDERED: Clopidogrel 75 MG TAB PO SCH (09:00)
--- NOTE | 2023-03-25 09:00 | NUR ---
PATIENT RESTING IN BED EATING BREAKFAST. DAUGHTER AT BEDSIDE. ALERT AND ORIENTED. SHIFT ASSESSMENT COMPLETE. ECCHYMOSIS NOTED TO ABDOMEN. PITTING +1 EDEMA TO BLE. PATIENT HAS A COUGH, ON 2L O2 VIA NC. TELEMETRY ON. PATIENT DENIES PAIN OR DISCOMFORT AT THIS TIME. WILL MONITOR
--- NOTE | 2023-03-25 09:06 | NUR ---
Initial visit attempt; Patient in Isolation. Ad Taker left a card with patient's nurse letting her know she is being thought of and prayed for by Ad Taker.
[2023-03-25] MEDS ORDERED: Heparin 1,000 UNITS/ML 10 ML Multi-Dose VIAL IV SCH (10:15)
[2023-03-25] MEDS ORDERED: VENTOLIN0.09 MG IH (14:49)
--- NOTE | 2023-03-25 15:53 | NUR ---
iron worker foreman called pt's room due to being in isolation. Pt daughter was in the room and answered the phone for pt. Daughter reports pt lives in [place]. She sees Dr. Morgan and obtains medications from [facility] with no difficulties. She has her contact as , Stef [phone]. Stef is also DPOA-HC and this is on file. Pt needs full assistance with ADLS. She uses a FWW, wheelchair, and oxygen at night. PT/OT Pending. Discharge Plan: tbd
--- NOTE | 2023-03-25 16:54 | NUR ---
Dialysis Note Pt arrived to tx via bed. Goal was set for 3 kg and 3kg removed. pt dcd back to room via bed without complaints.
--- NOTE | 2023-03-25 18:00 | NUR ---
PATIENT SITTING UP IN BED EATING DINNER. DAUGHTER AT BEDSIDE. PATIENT STATES SHE IS DOING FINE, OTHER THAN HER COUGH. COUGH IS PRODUCTIVE, A WHITE/YELLOW COLOR NOTED BY THIS NURSE. THIS NURSE ASKED PATIENT IF SHE WOULD LIKE A MUCINEX TAB, AND PATIENT STATED SHE WOULD RATHER WAIT. PATIENT DENIES ANY OTHER NEEDS OR CONCERNS AT THIS TIME. WILL MONITOR
[2023-03-25] MEDS ORDERED: Pravastatin 20 MG TAB PO SCH (21:00)
--- NOTE | 2023-03-25 21:19 | NUR ---
Patient assessed around 1919. Alert and oriented, and able to make needs known. Denies having pain and discomfort. Peripheral INT to right AC. AV fistula to left upper arm, dressing CDI. On oxygen at 2 L/min via NC. Reports SOB with laying flat and with exertion, denies at rest. LS CTA in upper lobes, coarse in lower. HRR. Telemetry in place. BSAx4. 1+ edema BLE. Decreased redness to BLE, no warmth. Skin very dry, lotion applied. Redness and excoriation to bottom. Reposition in bed every 2 hours. Dressing to skin tear on left lateral calf is CDI. Voices no questions, needs, or concerns at this time. In bed with call light within reach. High fall risk precautions in place. Bed alarm on.
[2023-03-26] VITALS (7 sets, daily range): BP systolic 125–153; BP diastolic 38–67; PULSE 67–75; TEMP 97.8–98.3
--- NOTE | 2023-03-26 06:00 | NUR ---
Patient continues on oxygen at 2 L/min via NC. Denies pain and discomfort. Voices no questions, needs, or concerns at this time. In bed with call light within reach. High fall risk precautions in place. Bed alarm on.
--- NOTE | 2023-03-26 07:15 | NUR ---
Assessment complete. O2 2L/NC. Denies pain or needs.
[2023-03-26] MEDS ORDERED: NS 1,000 ML IV SCH (08:00)
--- NOTE | 2023-03-26 08:30 | NUR ---
Pt to dialysis in bed.
[2023-03-26 08:53] LABS: BASO % 0.2 % (0.0-2.0); EOS # 0.1 K/mm3 (0.0-0.7); EOS % 1.6 % (0.0-4.0); GRAN # 3.2 K/mm3 (1.4-6.5); GRAN % 72.9 % (42.2-75.2); LYMPH # 0.6 K/mm3 (1.2-3.4); MEAN CORPUSCULAR HGB CONC 34 g/dl (33.0-37.0); MONO # 0.5 K/mm3 (0.1-0.6); MONO % 10.8 % (1.7-9.3); PLATELET COUNT 82 K/mm3 (130-400); RED BLOOD COUNT 2.53 M/mm3 (4.10-5.30); REDCELL DISTRIBUTION WIDTH-CV 14.9 % (11.5-14.5)
[2023-03-26 08:54] LABS: HEMATOCRIT 25.4 % (37.0-47.0); HEMOGLOBIN 8.6 g/dl (12.5-16.0); MEAN CELL VOLUME 100 fl (80.0-100.0); MEAN CORPUSCULAR HEMOGLOBIN 34 pg (27-31)
[2023-03-26 09:06] LABS: CALCIUM 8.9 mg/dL (8.4-10.2); CREATININE, serum 5.26 mg/dL (0.57-1.11)
--- NOTE | 2023-03-26 11:00 | NUR ---
Pt returns from dialysis.
--- NOTE | 2023-03-26 11:05 | NUR ---
Dialysis Note Pt arrived to tx via Bed. uf goal set for 2 kg and increased to 2.5. @.5 kg removed pt tolerated tx well dcd back to room no concerns voiced.
--- NOTE | 2023-03-26 11:26 | NUR ---
fabric worker leader was informed patient can discharge to [facility] SN[facility] today. DANNI faxed updates and discharge orders to [facility]. [facility] confirmed a transport for 1:00pm. DANNI left a voicemail to , Stef [phone] to update him on discharge planning. Discharge Plan: 1:00pm [facility] SN[facility]
[2023-03-26] MEDS ORDERED: Clopidogrel 75 MG TAB PO SCH (12:00)
--- NOTE | 2023-03-26 13:51 | NUR ---
Pt discharged to [facility] with [facility] staff. Tele d/c'd. INT d/c'd with cath tip intact. Unable to weight patient prior to discharge. Report called to Bobby at [facility]- requested he get patient's weight and call this nurse back with the weight.
== END 2023-03-26 13:51 | DRG 291 ==
LOC: COL.ER 20:13 → MEDICAL 21:17
PROVIDERS: Family Medicine; Physician Assistant; ADMIT Hospitalist
DX: I50.23 Acute on chronic systolic (congestive) heart failure (principal); J96.21 Acute and chronic respiratory failure with hypoxia; N18.6 End stage renal disease; Z99.2 Dependence on renal dialysis; D64.9 Anemia, unspecified; D69.6 Thrombocytopenia, unspecified; E11.9 Type 2 diabetes mellitus without complications; Z79.4 Long term (current) use of insulin; I25.119 Atherosclerotic heart disease of native coronary artery with unspecified angina pectoris; Z95.1 Presence of aortocoronary bypass graft; I48.91 Unspecified atrial fibrillation; E03.9 Hypothyroidism, unspecified; R53.81 Other malaise
CPT/HCPCS: A9270; G0378; J1644; J1815; J7030